=== PATIENT | male | born 1950 | race Caucasian/White ===

== ENCOUNTER 2019-03-29 11:47 | Inpatient (IN) ==
[2019-03-29] MEDS ORDERED: MoRPHine SULFATE 4 MG/ML 1 ML CARP\\VIAL IV STA ×2 (12:52→16:50)
[2019-03-29] MEDS ORDERED: ONDANSETRON INJ 2 MG/ML 2 ML VIAL IV STA ×2 (12:52→16:50)
[2019-03-29 13:19] LABS: Basophils # (auto) 0.01 K/uL (0-0.2); Basophils % (auto) 0.1 %; Eosinophils # (auto) 0.18 K/uL (0-0.5); Eosinophils % (auto) 2.1 %; Hemoglobin 15.4 g/dL (14.0-18.0); Immature Granulocytes # (auto) 0.01 K/uL (0.00-0.02); Immature Granulocytes % (auto) 0.1 %; Lymphocytes % (auto) 22.3 %; Mean Corpuscular Hemoglobin 32.8 pg (25-34); Mean Corpuscular Volume 93.8 fL (80-100); Mean Platelet Volume 9.5 fL (7.4-10.4); Monocytes # (auto) 0.91 K/uL (0.11-0.59); Monocytes % (auto) 10.7 %; Neutrophils % (auto) 64.7 %; Platelet Count 323 K/uL (130-400); RDW Coefficient of Variation 13.4 % (11.5-14.5); RDW Standard Deviation 45.7 fL (36.4-46.3); Red Blood Count 4.69 M/uL (4.7-6.1); White Blood Count 8.51 K/uL (4.8-10.8)
[2019-03-29 13:32] LABS: Partial Thromboplastin Ratio 0.9; Partial Thromboplastin Time 23.9 Seconds (21.0-31.0); Prothrombin Time 10.3 Seconds (9.0-12.0)
[2019-03-29 13:35] LABS: Blood Urea Nitrogen 16 mg/dl (7-18); Calcium 9.2 mg/dl (8.5-10.1); Carbon Dioxide 29 mmol/L (21-32); Chloride 106 mmol/L (98-107); Est GFR (African American) 103.8; Est GFR (Non-African American) 89.6; Glucose 122 mg/dl (70-99); Potassium 4.3 mmol/L (3.5-5.1); Sodium 138 mmol/L (136-145)
[2019-03-29] MEDS ORDERED: OPTIRAY 320 125ml IV PRN (15:18)
--- NOTE | 2019-03-29 16:00 | CT Scan Report ---
CT ANGIOGRAM OF THE LEFT LOWER EXTREMITY CLINICAL HISTORY: Left leg pain. Ischemia. Left foot wound. COMPARISON STUDY: Left lower extremity arterial ultrasound dated 01/16/2019. TECHNIQUE: CT angiogram of the left lower extremity is performed from the pelvis to the foot followin g the IV administration of 120 cc of Optiray 320. Images are reviewed in the axial, sagittal, and cor onal planes. 3-D MIP images are created and assessed. A dose lowering technique was utilized adhering to the principles of ALARA. CT DOSE: 1474.64 mGy.cm FINDINGS: Advanced atherosclerotic disease is noted throughout the arteries of the left lower extremity. There is aneurysmal dilatation of both common iliac arteries. The right common iliac artery measures at andi st 2.2 cm, and the left common iliac artery measures at least 2.2 cm. There is significant mural thro mbus present bilaterally. There is trace flow identified in the right common iliac artery. The left c ommon iliac artery appears occluded. There is thrombosis at the origin of the left internal iliac art lei which is reconstituted approximately 1 cm from the bifurcation. There is near-complete thrombosis of the left external iliac artery with only thready flow. This is largely reconstituted in the commo n femoral artery which shows extensive atheromatous change. The left profunda femoris artery is paten t. There is complete occlusion of the proximal and mid portions of the left superficial femoral arter y which originates at the bifurcation. This is reconstituted in the distal superficial femoral artery approximately 14 cm above the knee as shown on axial image #376. The distal superficial femoral danisha ry and the popliteal artery are patent noting advanced atheromatous change and irregularly. There is one vessel runoff to the foot. The proximal anterior tibial artery is patent. Only thready flow is se en in the midportion. The distal anterior tibial artery is occluded, as is the dorsalis pedis. The pe roneal artery is patent. There is thready flow in the proximal to mid portions of the posterior tibia l artery. This is occluded distally. The skeletal structures are osteopenic. No destructive bony process is identified. The musculature of the left lower extremity is mildly atrophic. No soft tissue lesion or collection is identified. Soft tissue edema is noted in the foot. The reported history of a left lower extremity wound is not well- visualized. The prostate gland is enlarged and heterogeneous. The bladder wall is thickened and trabeculated ellis cating chronic outlet obstruction. There is diverticulosis of the visualized sigmoid colon without CT evidence of acute diverticulitis. IMPRESSION: 1. Advanced atherosclerotic disease with multiple vascular occlusions identified as detailed above. 2. There is one vessel runoff to the foot. 3. 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 4. Additional findings as above. ACT 112: Negative or not required by law. Dictated: 03/29/2019 3:19 PM Transcribed: 03/29/2019 3:55 PM Ilda [id number] [email or web address] Electronically signed by: Jono Blackman M.D. 03/29/2019 3:58 PM
[2019-03-29] MEDS ORDERED: Heparin IV Standard *NO* Bolus ONE (16:26)
[2019-03-29] MEDS ORDERED: HEPARIN SODIUM/DEXTROSE 25,000 UNITS/500 ML BAG IV SCH (16:30)
[2019-03-29] MEDS ORDERED: SODIUM CHLORIDE 0.9% 1000ML 1,000 ML IV SCH ×2 (17:00→20:18)
[2019-03-29] MEDS ORDERED: LORazepam 0.5 MG/1 ML VIAL IV STA (17:15)
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
[2019-03-29] MEDS ORDERED: ACETAMINOPHEN 325 MG TAB PO PRN (20:18)
[2019-03-29] MEDS ORDERED: POLYETHYLENE (MIRALAX) 17 GM PACK PO PRN (20:18)
[2019-03-29] MEDS ORDERED: ALUMINUM/MAGNESIUM SUSP 30 ML UDC PO PRN (20:18)
[2019-03-29] MEDS ORDERED: MAGNESIUM HYDROXIDE SUSP 30 ML UDC PO PRN (20:18)
[2019-03-29] MEDS ORDERED: MoRPHine SULFATE 2 MG/ML CARP IV PRN (20:18)
[2019-03-29] MEDS: GABAPENTIN 100 MG CAP PO SCH (21:45)
[2019-03-29] MEDS: ASPIRIN 81 MG ECTAB PO SCH (21:45)
--- NOTE | 2019-03-29 22:37 | History & Physical Report ---
Date of Service March 29, 2019 Assessment & Plan (1) Ischemic leg: Admit to PCU on telemetry. Vital signs every 4 hours Pain management for the ischemic left lower extremity Consult vascular surgery Plan to have CT angiogram of the abd aorta runoff with contrast tomorrow. He is on heparin drip per recommendation of Dr. Patel DVT prophylaxis as the above Continue gabapentin 100 mg p.o. 3 times daily Full code Present on Admission?: Yes (2) CVA (cerebral infarction): Continue aspirin 81 mg p.o. every morning. Continue metoprolol succinate 12.5 mg p.o. every morning. Continue multivitamins Present on Admission?: Yes (3) HTN (hypertension): As the above Present on Admission?: Yes History of Present Illness Chief Complaint: Worsening left foot pain Primary Care Provider: NO PCP The patient is a 68 years old male with past medical history of Hypertension, CVA, who presents to the emergency room with worsening left foot pain beginning a few months ago. The patient states that he was in the emergency room a month ago for similar symptoms and he was told that had restriction of blood flow to his left lower extremity. He noted that his symptoms started in January. The patient's reports that he was advised to follow-up with vascular surgeon but patient refused to go. The patient mentioned that he was in the emergency room several times after he was referred to a vascular surgeon. Patient states that since then his symptoms are improving but his said that patient symptoms are worsening. Patient states that he is foot was blue when he arrived to the emergency room, but improved when physician came into the room to do conducted examination. The patient noted that there are new black lesions and patient left lower extremity which were concerning to her. Patient takes the gabapentin but it does not help his symptoms. Patient states that he developed some black spots in his foot. The patient is borderline diabetic. Patient denies fever, chills, chest pain, shortness of breath, abdominal pain, frequency, urgency. Patient is smoking for decades approximately 1 pack/day or more. Patient advised to stop smoking and offered nicotine patch. Patient stated that he does not need nicotine patch. EKG reviewed and shows normal sinus rhythm. Labs are reviewed and showed WBCs of 8.51, hemoglobin 15.4, hematocrit 44, platelets 323, PT 10.3, INR 1, APTT 23.9, sodium 138, potassium 4.3, chloride 106, carbon dioxide 29, anion gap 30, BUN 16, creatinine 0.82, GFR 89.6, glucose 122, calcium 9.2. CT angiogram of the left lower extremity shows advanced atherosclerotic disease with multiple vascular occlusions. There is one-vessel runoff to the foot. There is bilateral common iliac artery aneurysm. Venous Doppler did not show DVT within the left lower extremity. Decision was made to admit patient to PCU on telemetry for ischemic left foot due to peripheral vascular disease. Allergies Allergy/AdvReac Type Severity Reaction Status Date / Time No Known Allergies Allergy Unverified 03/29/19 13:15 Home Medications Home Medications Medication Instructions Recorded Confirmed Type multivitamin 1 tab PO QAM #0 tab 04/22/13 03/29/19 History metoprolol succinate 0 mg PO QAM 01/16/19 03/29/19 History gabapentin 100 mg PO TID #30 cap 02/16/19 03/29/19 Rx acetaminophen [Tylenol Extra 500 mg PO Q6H PRN 03/13/19 03/29/19 History Strength] aspirin 81 mg PO QAM 03/13/19 03/29/19 History Past Med/Surg History Medical History Aphasia (Acute 04/22/13) Confused (Acute 04/22/13) Confusion (Acute) CVA (cerebral infarction) (Acute) Delirium (Acute 04/23/13) HTN (hypertension) (Chronic) Surgical History No pertinent past surgical history Family History Other Family history non-contributory Social History Preferred Language: Tajik Beliefs That Will Affect Care: None Current Living Situation: Alone Feels Safe at Home: No Safety Concerns: Afraid for Self Smoking Status: Light tobacco smoker Hx Alcohol Use: No Hx Substance Use: No Review of Systems Review of Systems: All systems reviewed & are unremarkable except as noted in HPI & below Physical Exam Constitutional: WD/WN, vitals as above well developed and + obese Eyes: PERRL, conjunctivae normal, anicteric sclerae ENMT: external ear and nose normal, oropharynx normal Neck: trachea midline, no thyromegaly Respiratory: normal respiratory effort, lungs clear to auscultation Cardiovascular: Heart Sounds: normal S1 and normal S2 Palpation: + palpable S3 Not palpable pulses of the dorsalis pedis left lower extremities. The foot is still warm to touch. There are several areas covered with eschars specifically first big toe. Gastrointestinal (Abdomen): normal bowel sounds, soft, nontender, no hepatosplenomegaly Musculoskeletal: no cyanosis or clubbing, extremities motor strength 5/5 Skin: no rashes, warm and dry Neurologic: patellar DTR's 2+ bilat, sensation intact Psychiatric: Mood: + angry mood Insight: + limited insight Lymphatic: no cervical or axillary lymphadenopathy Results & Data Vital Signs (Past 12 Hours) Vital Signs Temp Pulse Pulse Resp BP BP Pulse Ox 03/29/19 20:18 36.8 C 114 H 22 136/80 97 03/29/19 19:50 36.8 C 114 H 18 136/80 97 03/29/19 19:37 118 H 20 126/75 96 03/29/19 19:00 105 H 20 129/69 97 03/29/19 17:00 104 H 20 98 03/29/19 15:00 103 H 20 118/75 95 03/29/19 13:41 102 H 17 94/69 L 98 03/29/19 11:49 36.7 C 126 H 18 145/77 H 99 Code Status & VTE Plan Code Status Full code VTE Prophylaxis Plan VTE Prophylaxis will be ordered: Yes PG Care Time/CCT Total # of Minutes Spent Total Time Spent with Patient: Total time spent is greater than 50% in coordination of care (as documented) at patient's floor/unit and/or counseling patient: Coding Level of Care Code 96403 Initial Inpt Care Lvl 3 Diagnoses Ischemic leg I99.8 CVA (cerebral infarction) I63.9 HTN (hypertension) I10
[2019-03-29 23:22] LABS: Partial Thromboplastin Ratio 1.2; Partial Thromboplastin Time 33.3 Seconds (21.0-31.0)
[2019-03-29] MEDS ORDERED: HEPARIN IV BOLUS 6,000 UNITS in SYRINGE 0 ML IV ONE (23:30)
[2019-03-29] MEDS: CLINDAMYCIN 600 MG in DEXTROSE 5% 50 ML IV SCH (23:49)
[2019-03-30] MEDS: OXYCODONE/ACETAMINOPHEN 5mg/325mg TAB PO PRN ×3 (03:33→22:38)
[2019-03-30] MEDS ORDERED: LORazepam 0.5 MG TAB PO STA (05:52)
[2019-03-30] MEDS: CLINDAMYCIN 600 MG in DEXTROSE 5% 50 ML IV SCH ×3 (05:58→22:33)
--- NOTE | 2019-03-30 06:35 | Electrocardiogram Report ---
Test Reason : Blood Pressure : / mmHG Vent. Rate : 099 BPM Atrial Rate : 099 BPM P-R Int : 196 ms QRS Dur : 094 ms QT Int : 348 ms P-R-T Axes : 072 -26 056 degrees QTc Int : 446 ms Normal sinus rhythm Low voltage QRS Possible Inferior infarct When compared with ECG of 16-JAN-2019 17:20, No significant change was found Confirmed by Cholo Duarte ([id number]) on 03/30/2019 6:34:57 AM Referred By: REFERRED SELF Confirmed By:Cholo Duarte
[2019-03-30] MEDS: ASPIRIN 81 MG ECTAB PO SCH (08:09)
[2019-03-30] MEDS: MULTIVITAMIN TAB PO SCH (08:09)
[2019-03-30] MEDS: GABAPENTIN 100 MG CAP PO SCH ×3 (08:09→20:25)
[2019-03-30] MEDS: METOPROLOL SUCC 25MG EXT REL TAB PO SCH (08:10)
[2019-03-30] MEDS ORDERED: OPTIRAY 320 125ml IV PRN (09:22)
[2019-03-30] MEDS ORDERED: Heparin IV Standard *NO* Bolus IV ONE (10:34)
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
[2019-03-30] MEDS ORDERED: PERFLUTREN LIPID MICROSPHERE (DEFINITY) IV ONE (11:15)
--- NOTE | 2019-03-30 11:15 | CT Scan Report ---
CT ANGIOGRAM OF THE ABDOMEN AND PELVIS WITH BILATERAL LOWER EXTREMITY RUNOFF CLINICAL HISTORY: Left foot ischemia. COMPARISON STUDY: CT angiogram of the left lower extremity dated 03/29/2019. TECHNIQUE: Following the IV administration of 120 cc of Optiray 320, CT angiogram of the abdomen and pelvis with bilateral lower externally runoff was performed from the lung bases to the feet. Images a re reviewed in the axial, sagittal, and coronal planes. 3-D MIPS images are created and assessed. IV contrast was administered without complication. A dose lowering technique was utilized adhering to t he principles of ALARA. CT DOSE: 1546.39 mGy.cm FINDINGS: Lower chest: The heart is enlarged and without pericardial effusion. There is bibasilar scarring/atel ectasis. No airspace consolidation or large pleural effusion is identified. There is a tiny hiatal he rnia. Liver: The contrast-enhanced liver is normal in size, contour, and attenuation. There is no intrahepa tic or ductal dilatation. The main portal vein is patent. A subcentimeter hypervascular focus in the right lobe of the liver seen on image #44. This likely represents shunt vascularity versus a tiny fla sh filling hemangioma. Gallbladder: Unremarkable. Spleen: Normal in size and attenuation noting heterogeneous arterial phase enhancement. Pancreas: Unremarkable. Adrenal glands: Unremarkable. Kidneys: The contrast enhanced kidneys are normal in size and without hydronephrosis. The kidneys enh ance symmetrically. Abdominal aorta and iliac arteries: There is advanced atherosclerotic plaque and irregularity seen th roughout the abdominal aorta. The abdominal aorta is ectatic. There is mild aneurysmal dilatation of the infrarenal abdominal aorta which measures up to 3.0 cm. The abdominal aorta is patent. Approximat fartun 50% luminal narrowing is seen throughout the mid to distal abdominal aorta. The minimum patent jaciel joe diameter measures up to 11 mm just above the bifurcation. No dissection is seen. There are bila teral aneurysms of the common iliac arteries. The right common iliac artery aneurysm measures up to 2 .2 cm, and the left common iliac artery aneurysm measures up to 2.1 cm. There is near complete occlus ion of the right common iliac artery with only trace flow identified. There is complete thrombosis of the proximal right internal iliac artery. This is reconstituted after approximately 2 cm. The right external iliac artery is patent noting extensive atheromatous irregularity. There is complete thrombo sis of the mid to distal left common iliac artery as well as at the origin of the left internal iliac artery. The left internal iliac artery is reconstituted after approximately 1 cm. There is complete thrombosis of the majority of the left external iliac artery. There is only trace flow reconstituted distally. Major branches of the abdominal aorta: The celiac trunk and superior mesenteric artery are are widely patent. 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 This is reconstituted approximately 3 cm from the abdominal aorta, likely via retrograde flow. Hepatic arterial anatomy is conventional. The splenic artery is patent. There are single bilateral renal arteries. There is aneu rysmal dilatation of the origin of the left renal artery which measures up to 1.2 cm. There is focal dissection within the proximal left renal artery. There is atherosclerotic irregularity with no high- grade stenosis identified in either renal artery. Right lower extremity runoff: Advanced atherosclerotic plaque and irregularity seen throughout the ar teries of the right lower extremity. The common femoral artery and the profunda femoris artery are pa tent. There is complete thrombosis of the right superficial femoral artery and the proximal popliteal artery. This is reconstituted posterior to the distal femur on image #[id number]. The mid to distal poplite al artery and the tibioperoneal trunk are patent. There is one-vessel runoff to the foot. The proxima l and mid portions of the anterior tibial artery are patent. This is occluded distally just above the ankle joint as seen on image #[id number]. The dorsalis pedis artery is occluded. There is thready flow wit hin the proximal and mid portions of the posterior tibial artery. This is occluded distally. The jake tan artery is patent. Left lower extremity runoff: Advanced atherosclerotic plaque and irregularity seen throughout the art eries of the left lower extremity. The common femoral artery and the profunda femoris artery are barron nt. There is complete occlusion of the proximal and mid portions of the left superficial femoral danisha ry which originates at the bifurcation. This is reconstituted in the distal superficial femoral arter y approximately 14 cm above the knee. The distal superficial femoral artery and the popliteal artery are patent noting advanced atheromatous change and irregularly. Focal high-grade stenosis is seen wit hin the distal superficial femoral artery on image #685. There is one vessel runoff to the foot. The proximal anterior tibial artery is patent. Only thready flow is seen in the midportion. The distal an terior tibial artery is occluded, as is the dorsalis pedis. The peroneal artery is patent. There is t hready flow in the proximal to mid portions of the posterior tibial artery. This is occluded distally . Bowel: There is no bowel obstruction. There is colonic diverticulosis without CT evidence of acute di verticulitis. Moderate fecal retention is seen throughout the colon. There is a large duodenal divert iculum. The appendix is well-visualized and normal. Peritoneum: There is no intraperitoneal free air or abdominal ascites. Lymphadenopathy: None. Pelvic viscera: The prostate gland is enlarged and heterogeneous. The bladder is distended and filled with excreted IV contrast. Skeletal structures: The skeletal structures are osteopenic. Moderate lumbosacral spondylosis is obse rved. Large posterior disc osteophyte complexes at L4-L5 and L5-S1 likely contribute to central canal stenosis. No lytic or blastic lesions are seen. Lower extremity soft tissues: There is mild atrophy of the lower extremity musculature. Mild soft tis april edema is present in both feet, left greater than right. Question dorsal heel ulceration on the le ft. There is no evidence of organized fluid collection. IMPRESSION: 1. Advanced atherosclerotic disease is identified in the abdominal aorta, iliac arteries, and lower e xtremity arteries. 2. There is one-vessel runoff to the foot bilaterally with numerous foci of vascular occlusion in the iliac arteries and both lower extremity arteries. See above for detailed findings. 3. There are bilateral common iliac artery aneurysms which measure up to 2.2 cm. 4. There is diffuse ectasia of the abdominal aorta. A small infrarenal abdominal aortic aneurysm brittaney ures up to 3.0 cm. 5. 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 The renal arteries are patent. 6. 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 7. 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 8. Cardiomegaly. 9. Moderate colonic diverticulosis without CT evidence of acute diverticulitis. 9. Bladder distention. 10. Additional findings as above. ACT 112: Negative or not required by law. Electronically signed by: Jono Blackman M.D. 03/30/2019 11:14 AM
[2019-03-30] MEDS: HEPARIN SODIUM/DEXTROSE 25,000 UNITS/500 ML BAG IV SCH (12:08)
[2019-03-30] MEDS: ATORVASTATIN 40 MG TAB PO SCH (12:15)
[2019-03-30 12:19] LABS: Basophils # (auto) 0.02 K/uL (0-0.2); Basophils % (auto) 0.2 %; Eosinophils % (auto) 2.5 %; Hematocrit (blood only) 42.8 % (42-52); Hemoglobin 14.7 g/dL (14.0-18.0); Immature Granulocytes # (auto) 0.01 K/uL (0.00-0.02); Immature Granulocytes % (auto) 0.1 %; Lymphocytes # (auto) 1.96 K/uL (1.2-3.4); Lymphocytes % (auto) 24.3 %; Mean Corpuscular Hemoglobin 32.4 pg (25-34); Mean Corpuscular Hgb Conc 34.3 g/dL (32-36); Mean Corpuscular Volume 94.3 fL (80-100); Mean Platelet Volume 9.6 fL (7.4-10.4); Monocytes # (auto) 0.76 K/uL (0.11-0.59); Monocytes % (auto) 9.4 %; Neutrophils # (auto) 5.13 K/uL (1.4-6.5); Neutrophils % (auto) 63.5 %; Platelet Count 257 K/uL (130-400); RDW Coefficient of Variation 13.3 % (11.5-14.5); RDW Standard Deviation 45.8 fL (36.4-46.3); Red Blood Count 4.54 M/uL (4.7-6.1); White Blood Count 8.08 K/uL (4.8-10.8)
[2019-03-30 12:29] LABS: Estimated Average Glucose 143 mg/dl; Hemoglobin A1C 6.6 % (4.5-5.6); Partial Thromboplastin Ratio 0.9; Partial Thromboplastin Time 25.2 Seconds (21.0-31.0); Prothrombin Time 10.4 Seconds (9.0-12.0)
[2019-03-30 12:35] LABS: BUN Creatinine Ratio 15.5 (10-20); Creatinine Clr Calc Pharmacy 74.7 ml/min; Est GFR (African American) 100.4; Est GFR (Non-African American) 86.6; Potassium 4.2 mmol/L (3.5-5.1)
--- NOTE | 2019-03-30 15:12 | Communication Note ---
Date of Service: March 30, 2019 68-year-old male admitted medically on 03/29/2019 for worsening left foot pain. Psychiatric consultation was requested; however, patient remains unable to participate in productive interview at this time. We will attempt to clarify goals of psychiatric involvement while awaiting improvement in level of sedation. Our service will continue to round on patient and will plan to reassess when he is more appropriate for evaluation. Please reach out to our service with any additional concerns or updates.
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
[2019-03-30] MEDS ORDERED: LORazepam 0.5 MG/1 ML VIAL IV PRN (17:15)
--- NOTE | 2019-03-30 17:32 | Billing Data ---
Date of Service March 30, 2019 Coding Level of Care Code 69816 Subseq Hosp Care Lvl 3
[2019-03-30 18:40] LABS: Partial Thromboplastin Ratio 1.4; Partial Thromboplastin Time 37.6 Seconds (21.0-31.0)
[2019-03-30] MEDS ORDERED: HEPARIN IV BOLUS 6,000 UNITS in SYRINGE 0 ML IV ONE (19:15)
[2019-03-31 01:13] LABS: Partial Thromboplastin Ratio 3.3
[2019-03-31 01:20] LABS: Partial Thromboplastin Time 88.3 Seconds (21.0-31.0)
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
[2019-03-31] MEDS: HEPARIN SODIUM/DEXTROSE 25,000 UNITS/500 ML BAG IV SCH ×2 (04:28→22:14)
[2019-03-31 07:48] LABS: Basophils # (auto) 0.02 K/uL (0-0.2); Basophils % (auto) 0.3 %; Eosinophils # (auto) 0.19 K/uL (0-0.5); Eosinophils % (auto) 2.6 %; Hematocrit (blood only) 41.5 % (42-52); Hemoglobin 14.3 g/dL (14.0-18.0); Immature Granulocytes # (auto) 0.02 K/uL (0.00-0.02); Immature Granulocytes % (auto) 0.3 %; Lymphocytes # (auto) 1.92 K/uL (1.2-3.4); Lymphocytes % (auto) 25.9 %; Mean Corpuscular Hemoglobin 32.4 pg (25-34); Mean Corpuscular Hgb Conc 34.5 g/dL (32-36); Mean Corpuscular Volume 93.9 fL (80-100); Mean Platelet Volume 9.4 fL (7.4-10.4); Monocytes # (auto) 0.69 K/uL (0.11-0.59); Monocytes % (auto) 9.3 %; Neutrophils # (auto) 4.56 K/uL (1.4-6.5); Neutrophils % (auto) 61.6 %; Platelet Count 261 K/uL (130-400); RDW Coefficient of Variation 13.1 % (11.5-14.5); RDW Standard Deviation 45.2 fL (36.4-46.3); Red Blood Count 4.42 M/uL (4.7-6.1)
[2019-03-31] MEDS: CLINDAMYCIN 600 MG in DEXTROSE 5% 50 ML IV SCH ×3 (08:07→22:16)
[2019-03-31] MEDS: NICOTINE 14 MG/24 HR PATCH TD SCH (08:09)
[2019-03-31 08:10] LABS: INR 1.1 (0.9-1.1); Partial Thromboplastin Ratio 2.1; Prothrombin Time 10.8 Seconds (9.0-12.0)
[2019-03-31] MEDS: MULTIVITAMIN TAB PO SCH (08:10)
[2019-03-31] MEDS: ATORVASTATIN 40 MG TAB PO SCH (08:10)
[2019-03-31] MEDS: ASPIRIN 81 MG ECTAB PO SCH (08:10)
[2019-03-31] MEDS: METOPROLOL SUCC 25MG EXT REL TAB PO SCH (08:11)
[2019-03-31] MEDS: GABAPENTIN 100 MG CAP PO SCH ×3 (08:11→20:00)
[2019-03-31 08:15] LABS: Partial Thromboplastin Time 56.7 Seconds (21.0-31.0)
[2019-03-31 08:30] LABS: BUN Creatinine Ratio 14.5 (10-20); Calcium 9.1 mg/dl (8.5-10.1); Creatinine Clr Calc Pharmacy 73.9 ml/min; Est GFR (African American) 99.9; Est GFR (Non-African American) 86.2; Potassium 3.8 mmol/L (3.5-5.1)
--- NOTE | 2019-03-31 09:30 | Anesthesiology Consultation ---
Date of Service March 31, 2019 Assessment & Plan (1) Encounter for pre-operative examination: Chart Review Chart Review: Pending: Refer to Additional Notes / Consult section The patient appears to be acceptable for surgery however he is currently refusing to sign anesthesia consent as he is still not sure if he wants to proceed with surgery. Dr. Patel is aware and will speak to the patient again. The patient is alert and oriented to time and place and understands that surgery is necessary to prevent future amputation of his foot. He however is scared and sometimes appears confused. I did speak to the psychiatric liaison who states that the patient has been deemed appropriate to sign his own consents. Dr. Patel will be placing blood bank orders. History Surgery Operation Date: 04/01/19 12:10 Proposed Procedures p Aortobifemoral Bypass - Rickie Patel MD Height/Weight Height: 5 ft 8 in Weight: 79.2 kg Allergies Allergy/AdvReac Type Severity Reaction Status Date / Time No Known Allergies Allergy Unverified 03/29/19 13:15 Medications Home Medications Medication Instructions Recorded Confirmed Last Taken multivitamin 1 tab PO QAM #0 tab 04/22/13 03/29/19 03/29/19 metoprolol succinate 0 mg PO QAM 01/16/19 03/29/19 03/29/19 gabapentin 100 mg PO TID #30 cap 02/16/19 03/29/19 03/29/19 acetaminophen [Tylenol Extra 500 mg PO Q6H PRN 03/13/19 03/29/19 03/12/19 17:00 Strength] 1000 mg aspirin 81 mg PO QAM 03/13/19 03/29/19 03/29/19 Active Medications Generic Name Dose Route Start Last Admin Trade Name Freq PRN Reason Stop Dose Admin Aspirin 81 mg 03/29/19 20:18 03/31/19 08:10 Ecotrin Ectab PO 04/28/19 20:17 81 mg QAM SCOTT Administration Atorvastatin Calcium 40 mg 03/30/19 10:45 03/31/19 08:10 Lipitor PO 04/29/19 10:44 40 mg QAM SCOTT Administration Gabapentin 100 mg 03/29/19 21:00 03/31/19 08:11 Neurontin PO 04/28/19 20:59 100 mg TID SCOTT Administration Clindamycin Phosphate 600 mg/ 54 mls @ 100 mls/hr 03/29/19 23:00 03/31/19 08:40 Dextrose IV 04/08/19 22:59 Infused Q8H SCOTT Infusion Heparin Sodium/Dextrose 25,000 units in 500 mls @ 29 mls/hr 03/30/19 10:45 03/31/19 08:25 Heparin Sodium/Dextrose IV 04/29/19 10:44 1,450 units/hr .[id number] SCOTT 29 mls/hr Titration Protocol 1,450 UNITS/HR Ioversol 120 ml 03/30/19 09:22 03/30/19 09:22 Optiray 320 125ml IV 04/03/19 09:21 120 ml ONCE PRN Administration Interaction Checking Metoprolol Succinate 12.5 mg 03/30/19 09:00 03/31/19 08:11 Toprol Xl PO 04/29/19 08:59 12.5 mg QAM SCOTT Administration Miscellaneous 1 ea 03/31/19 08:59 03/31/19 08:10 Remove Nicoderm Patch N/A 04/30/19 08:58 1 ea [id number] SCOTT Administration Morphine Sulfate 2 mg 03/29/19 20:18 03/30/19 02:12 Morphine Sulfate IV 04/12/19 20:17 2 mg Q2H PRN Administration Chest Pain Multivitamins 1 tab 03/30/19 09:00 03/31/19 08:10 Multivitamin Tab PO 04/29/19 08:59 1 tab QAM SCOTT Administration Nicotine 14 mg 03/31/19 09:00 03/31/19 08:09 Nicoderm Cq TD 04/30/19 08:59 14 mg QAM SCOTT Administration Oxycodone/Acetaminophen 2 tab 03/30/19 03:13 03/30/19 22:38 Percocet 5mg/325mg PO 04/13/19 03:12 2 tab Q4H PRN Administration Pain Past Medical History Medical History Aphasia (Acute 04/22/13) Confused (Acute 04/22/13) Confusion (Acute) CVA (cerebral infarction) (Acute) Delirium (Acute 04/23/13) HTN (hypertension) (Chronic) Past Family History Family History Other Family history non-contributory Past Surgical History Surgical History No pertinent past surgical history Social History Smoking Status: Light tobacco smoker Hx Alcohol Use: No Hx Substance Use: No Physical Exam Vital Signs Last Vital Signs Temp 36.7 C 03/31/19 08:00 Pulse 101 H 03/31/19 08:00 Resp 22 03/31/19 08:00 BP 138/75 03/31/19 08:00 Pulse Ox 95 03/31/19 08:00 ENMT Mouth: + poor dentition and + chipped teeth Thyromental Distance: > or= 3.5 Finger Breadths Mallampati Class: III Mouth / Teeth: 1. Missing Neck + limited neck extension (Slightly) Respiratory Auscultation: lungs clear to auscultation bilaterally Cardiovascular Rate/Rhythm: regular rate and regular rhythm Testing Laboratory Results 03/31/19 07:31 03/31/19 07:31 PT 10.8 Seconds (9.0-12.0) 03/31/19 07:31 INR 1.1 (0.9-1.1) 03/31/19 07:31 APTT 56.7 Seconds (21.0-31.0) H* 03/31/19 07:31 Hemoglobin A1c 6.6 % (4.5-5.6) H 03/30/19 11:44 Electrocardiogram Date: 03/29/19 Normal sinus rhythm Low voltage QRS Possible Inferior infarct When compared with ECG of 16-JAN-2019 17:20, No significant change was found Confirmed by Cholo Duarte ([id number]) on 03/30/2019 6:34:57 AM Chest X-Ray Date: 01/16/19 PRESSION: 1. Mild cardiomegaly. No other convincing evidence of acute cardiopulmonary disease. Echocardiogram Date: 03/29/19 EF: 50-55% LV Function: normal LV systolic fxn normal Regional wall motion abnormalities cannot be excluded AVS mild ,no stenosis borderline mild LVH
--- NOTE | 2019-03-31 09:46 | Psychiatric Consultation ---
Date of Consultation March 31, 2019 Impression / Recommendations Impression Dr. Desiree Quinones was directly involved in review and discussion of the patient's case and participated in medical decision making regarding treatment recommendations. RECOMMENDATIONS: 03/31 - Gather collateral information from outpatient supports to better assess the timeline of these delusional beliefs - Pt has several risk factors for delirium: advanced age, prior CVA, and mu ltiple complicating medical issues. History of these beliefs will allow us to better determine if the thoughts are related to a psychiatric disorder or better explained by possible delirium. Upcoming surgery may further complicate this during the acute recovery phase. - As patient is not actively agitated and history regarding delusions is limited, would not suggest prophylactically starting antipsychotic medications. - Will plan to reassess patient prior to discharge consideration to evaluate any changes in these beliefs or safety concerns at that time - Pt is not clearly demonstrating an acute risk of harm to others; but recommend monitoring of these statements. Psych History Identifying Data 68-year-old male admitted medically on 03/29/2019 after presenting to the ED with worsening left foot pain. Pt is being treated medically for ischemic changes to his left leg and present plan is for vascular surgery on 04/01/2019. Psychiatric consultation was requested due to patient reporting thoughts to harm specific individuals and verbalizing belief they are using Taoism against him. Chief Complaint "I'm not too good I have an operation tomorrow, and I'm in pain every day until then." History of Present Illness Yasmany James is a 68-year-old male admitted medically on 03/29/2019 after presenting to the ED with complaints of worsening left foot pain. Ischemic changes to his left leg were noted, and patient has received a vascular surgery consultation. Present plan is for operative procedure on 04/01/2019 to target these changes. Psychiatric consultation was reportedly requested as patient has been verbalizing thoughts to harm specific individuals living at his apartment complex, verbalizing the belief they are using episcopal against him. Patient was too sedated yesterday to gather meaningful history, and is reassessed today for psychiatric evaluation. Patient is cooperative with conversation, but admits he is "not too good." Patient states that he continues to have significant left foot pain, but informs this provider he is scheduled for an operation tomorrow. Patient states he is prepared for this operation, and is hopeful that it is beneficial for him. It is not long in our conversation before patient begins to talk about how "[employer] screwed me, the maintenance guys I mean. They did all this to me." Patient goes on to verbalize a belief that the maintenance men at his apartment complex (some of whom actually lived in [place]) have been practicing episcopal and directly inflicted the issues he is experiencing with his left foot. Patient states "believe it or not, what is going on has something to do with episcopal." He states, "at first I thought they should watch their backs, but now I plan to april them for many, many millions of dollars." This provider gently attempted to challenge his thoughts, asking if there was any other explanation for the changes he is experiencing in his physical presentation. Patient responds by stating "I am positive that they are doing this to me." Patient states that he has been to the four roll calender operator "at least 4 times", and that they have not been able to offer him a solution to his current concerns. Patient believes that the television maintenance worker are attempting to get him to move out of his apartment. He states that this episcopal magic has been occurring for at least 4 to 5 months, and that they are able to target him from anywhere. He states he is yet to experience the episcopal here in the hospital, but would not be surprised if this were to happen. Patient was specifically asked about homicidal ideation towards these individuals, to which he states "I would not say I did not think about it, but was good does not do me. I would just end up in correction." Patient states that he has 2 specific supports also living at the apartment complex who could corroborate his story. Patient denies history of psychiatric diagnoses. He denies history of inpatient psychiatric hospitalizations or previous suicide or homicide attempts. He denies significant changes in his mood or level of anxiety over the past several months. He does admit that his sleep and appetite have been affected and are "not good at all." The patient states that he has become preoccupied with the episcopal the television maintenance worker are performing, that he feels as though he cannot eat or sleep. Patient was unable to quantify his usual sleep schedule. He is agreeable, should it be indicated, with medication to keep him comfortable during his hospitalization. Other than this, patient denies specific needs or concerns from our service at this time. Past Psychiatric History Previous Psych History: Patient denies previous psychiatric history. He was seen on psychiatric consult service in 2013 shortly after his CVA. Patient was initiated on lorazepam and quetiapine, as we were asked to provide medication recommendations for agitation. Allergies Allergy/AdvReac Type Severity Reaction Status Date / Time No Known Allergies Allergy Unverified 03/29/19 13:15 Home Medications Home Medications Medication Instructions Recorded Confirmed Type multivitamin 1 tab PO QAM #0 tab 04/22/13 03/29/19 History metoprolol succinate 0 mg PO QAM 01/16/19 03/29/19 History gabapentin 100 mg PO TID #30 cap 02/16/19 03/29/19 Rx acetaminophen [Tylenol Extra 500 mg PO Q6H PRN 03/13/19 03/29/19 History Strength] aspirin 81 mg PO QAM 03/13/19 03/29/19 History Family History Denies Substance Abuse History Denies Personal History Living Arrangements: Apartment ([facility]) Highest Grade Completed: High School Graduate Employment Status: Retired Marital Status: Single (Never ) Number Of Children: Denies Beliefs That Will Affect Care: None History of Legal Problems: Denies Psychological Trauma History Comment: Denies Patient History Medical History Aphasia (Acute 04/22/13) Confused (Acute 04/22/13) Confusion (Acute) CVA (cerebral infarction) (Acute) Delirium (Acute 04/23/13) HTN (hypertension) (Chronic) Surgical History No pertinent past surgical history Family History Other Family history non-contributory Social History Preferred Language: Serbian Communication Ability: Effective Beliefs That Will Affect Care: None marital status: Single Current Living Situation: Alone Feels Safe at Home: No Safety Concerns: Afraid for Self Smoking Status: Light tobacco smoker Hx Alcohol Use: No Hx Substance Use: No Physical Exam Psychiatric: Orientation: alert and cooperative Apperance: appropriately dressed and + disheveled; + inappropriately groomed male, observed to be sitting upright on edge of bed, eating lunch. Appropriately dressed for setting in hospital gown. Appearing disheveled with limited grooming, edentulous. Eye Contact: good eye contact Motor Behavior: no abnormal motor movements Speech: + loud speech and normal rate/rhythm/volume of speech; no pressured speech Affect: + irritable affect (pleasant in conversation, but demonstrates frustration about situation) Mood: + irritable mood ("I don't even get why they're doing it, it's making me frustrated") Thought Process: goal directed thought process and + perseveration illogical beliefs that people are using episcopal against him, can not consider another possible explanation for his foot issues Thought Content: + preoccupation, + paranoid and + delusions (believing individuals are using episcopal to inflict harm/pain) Suicidal Thoughts: denies suicidal thoughts Homicidal Thoughts: denies homicidal thoughts (but does want to "april them for many, many millions of dollars") Hallucinations: no auditory hallucinations and no visual hallucinations Admits he cannot see or hear these individuals, that they are using episcopal to complete these acts Cognition: language grossly intact Insight: + impaired insight Judgement: + impaired judgement Vital Signs (Past 24 Hours): Last Vital Signs Temp 36.7 C 03/31/19 08:00 Pulse 101 H 03/31/19 08:00 Resp 22 03/31/19 08:00 BP 138/75 03/31/19 08:00 Pulse Ox 95 03/31/19 08:00 Review of Systems Constitutional: denied Cardiovascular: denied Respiratory: denied Gastrointestinal: denied Neurological: denied Musculoskeletal: reporting significant left foot pain Psychiatric: denies symptoms other than stated above Total of at least 10 systems reviewed, pertinent positives as above and in HPI. Results & Data Medications Administered Aspirin (Ecotrin Ectab) 81 mg PO [facility] Stop: 04/28/19 20:17 Last Admin: 03/31/19 08:10 Dose: 81 mg Documented by: [id number] Admin: 03/30/19 08:09 Dose: 81 mg Documented by: [id number] Admin: 03/29/19 21:45 Dose: 81 mg Documented by: [id number] Atorvastatin Calcium (Lipitor) 40 mg PO [facility] Stop: 04/29/19 10:44 Last Admin: 03/31/19 08:10 Dose: 40 mg Documented by: [id number] Admin: 03/30/19 12:15 Dose: 40 mg Documented by: [id number] Gabapentin (Neurontin) 100 mg PO TID [facility] Stop: 04/28/19 20:59 Last Admin: 03/31/19 08:11 Dose: 100 mg Documented by: [id number] Admin: 03/30/19 20:25 Dose: 100 mg Documented by: [id number] Admin: 03/30/19 13:38 Dose: 100 mg Documented by: [id number] Admin: 03/30/19 08:09 Dose: 100 mg Documented by: [id number] Admin: 03/29/19 21:45 Dose: 100 mg Documented by: [id number] Clindamycin Phosphate 600 mg/ (Dextrose) 54 mls @ 100 mls/hr IV Q8H [facility] Stop: 04/08/19 22:59 Last Admin: 03/31/19 08:07 Dose: 100 mls/hr Documented by: [id number] Infusion: 03/30/19 23:09 Dose: 0 mls/hr Documented by: [id number] Admin: 03/30/19 22:33 Dose: 100 mls/hr Documented by: [id number] Infusion: 03/30/19 15:30 Dose: 0 mls/hr Documented by: [id number] Admin: 03/30/19 14:22 Dose: 100 mls/hr Documented by: [id number] Infusion: 03/30/19 09:41 Dose: 0 mls/hr Documented by: [id number] Infusion: 03/30/19 06:29 Dose: 0 mls/hr Documented by: [id number] Admin: 03/30/19 05:58 Dose: 100 mls/hr Documented by: [id number] Infusion: 03/30/19 00:22 Dose: 0 mls/hr Documented by: [id number] Admin: 03/29/19 23:49 Dose: 100 mls/hr Documented by: [id number] Heparin Sodium/Dextrose (Heparin Sodium/Dextrose) 25,000 units in 500 mls @ 29 mls/hr IV .[id number] [facility]; Protocol Stop: 04/29/19 10:44 Last Titration: 03/31/19 08:25 Dose: 1,450 units/hr, 29 mls/hr Documented by: [id number] Cosigned by: [id number] Titration: 03/31/19 07:08 Dose: 1,450 units/hr, 29 mls/hr Documented by: [id number] Cosigned by: [id number] Admin: 03/31/19 04:28 Dose: 1,450 units/hr, 29 mls/hr Documented by: [id number] Cosigned by: [id number] Titration: 03/31/19 04:28 Dose: 1,450 units/hr, 29 mls/hr Documented by: [id number] Cosigned by: [id number] Titration: 03/31/19 01:52 Dose: 1,450 units/hr, 29 mls/hr Documented by: [id number] Cosigned by: [id number] Titration: 03/31/19 01:21 Dose: 0 units/hr, 0 mls/hr Documented by: [id number] Cosigned by: [id number] Titration: 03/30/19 19:19 Dose: 1,600 units/hr, 32 mls/hr Documented by: [id number] Cosigned by: [id number] Titration: 03/30/19 18:46 Dose: 1,600 units/hr, 32 mls/hr Documented by: [id number] Cosigned by: [id number] Admin: 03/30/19 12:08 Dose: 1,300 units/hr, 26 mls/hr Documented by: [id number] Cosigned by: [id number] Ioversol (Optiray 320 125ml) 120 ml IV ONCE PRN PRN Reason: Interaction Checking Stop: 04/03/19 09:21 Last Admin: 03/30/19 09:22 Dose: 120 ml Documented by: [id number] Metoprolol Succinate (Toprol Xl) 12.5 mg PO QAM [facility] Stop: 04/29/19 08:59 Last Admin: 03/31/19 08:11 Dose: 12.5 mg Documented by: [id number] Admin: 03/30/19 08:10 Dose: 12.5 mg Documented by: [id number] Miscellaneous (Remove Nicoderm Patch) 1 ea N/A [id number] [facility] Stop: 04/30/19 08:58 Last Admin: 03/31/19 08:10 Dose: 1 ea Documented by: [id number] Morphine Sulfate (Morphine Sulfate) 2 mg IV Q2H PRN PRN Reason: Chest Pain Stop: 04/12/19 20:17 Last Admin: 03/30/19 02:12 Dose: 2 mg Documented by: [id number] Multivitamins (Multivitamin Tab) 1 tab PO QAM SCOTT Stop: 04/29/19 08:59 Last Admin: 03/31/19 08:10 Dose: 1 tab Documented by: [id number] Admin: 03/30/19 08:09 Dose: 1 tab Documented by: [id number] Nicotine (Nicoderm Cq) 14 mg TD QAM SCOTT Stop: 04/30/19 08:59 Last Admin: 03/31/19 08:09 Dose: 14 mg Documented by: [id number] Oxycodone/Acetaminophen (Percocet 5mg/325mg) 2 tab PO Q4H PRN PRN Reason: Pain Stop: 04/13/19 03:12 Last Admin: 03/30/19 22:38 Dose: 2 tab Documented by: [id number] Admin: 03/30/19 11:19 Dose: 2 tab Documented by: [id number] Admin: 03/30/19 03:33 Dose: 2 tab Documented by: [id number] Coding Level of Care Code 98373 [facility] Intl Hosp Care Lvl 3
[2019-03-31] MEDS ORDERED: SODIUM CHLORIDE 0.9% 250 ML IV PRN (10:26)
--- NOTE | 2019-03-31 10:31 | Surgery Progress Note ---
Date of Service March 31, 2019 Assessment & Plan (1) Ischemia of left lower extremity: Patient is agreeable to undergo an endovascular repair of his aortic aneurysm and iliac aneurysms along with a femorofemoral bypass. I have discussed the risks options and benefits of the procedure with the patient. The patient understands the risks options and benefits and agrees to the procedure. This will be done tomorrow around noon. Subjective Patient still complaining of pain in his left foot however it is slightly improved since admission. He is taking narcotics for it. Physical Exam Constitutional: well developed and well nourished; no acute distress Respiratory: no respiratory distress Cardiovascular: Vessels: + femoral pulses abnormal, + posterior tibial pulses abnormal and + dorsalis pedis pulses abnormal Gastrointestinal (Abdomen): Inspection/Auscultation: abdomen normal to inspection Percussion/Palpation: abdomen nontender Musculoskeletal: Extremities: extremities normal to inspection Skin: no rashes, warm and dry Psychiatric: Orientation: alert and oriented x 3 Results & Data Vital Signs (Past 12 Hours) Vital Signs Temp Pulse Pulse Resp BP BP Pulse Ox 03/31/19 08:00 36.7 C 101 H 22 138/75 95 03/31/19 04:17 36.7 C 98 H 22 137/76 93 03/31/19 00:02 100 H 03/30/19 23:11 37.0 C 94 H 18 148/68 H 93
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
[2019-03-31] MEDS: OXYCODONE/ACETAMINOPHEN 5mg/325mg TAB PO PRN (15:05)
--- NOTE | 2019-03-31 17:10 | Billing Data ---
Date of Service March 31, 2019 Coding Level of Care Code 75794 Subseq Hosp Care Lvl 3
[2019-03-31] MEDS ORDERED: HALOPERIDOL LACTATE 5 MG/ML 1 ML VIAL ONE (23:55)
[2019-04-01] MEDS: HALOPERIDOL LACTATE 5 MG/ML 1 ML VIAL IM PRN ×2 (00:02→00:18)
[2019-04-01] MEDS ORDERED: CEFAZOLIN 1000MG 1,000 MG/7.5 ML SYR IV SCH (06:00)
[2019-04-01] MEDS ORDERED: LACTATED RINGER'S 1,000 ML IV SCH (08:00)
[2019-04-01] MEDS: ASPIRIN 81 MG ECTAB PO SCH (08:37)
[2019-04-01] MEDS: MULTIVITAMIN TAB PO SCH (08:38)
[2019-04-01] MEDS: OXYCODONE/ACETAMINOPHEN 5mg/325mg TAB PO PRN (08:38)
[2019-04-01] MEDS: GABAPENTIN 100 MG CAP PO SCH ×3 (08:38→20:27)
[2019-04-01] MEDS: NICOTINE 14 MG/24 HR PATCH TD SCH (08:38)
[2019-04-01] MEDS: ATORVASTATIN 40 MG TAB PO SCH (08:38)
[2019-04-01] MEDS: METOPROLOL SUCC 25MG EXT REL TAB PO SCH (08:38)
[2019-04-01 09:01] LABS: Basophils # (auto) 0.01 K/uL (0-0.2); Basophils % (auto) 0.1 %; Eosinophils # (auto) 0.15 K/uL (0-0.5); Hematocrit (blood only) 42.7 % (42-52); Hemoglobin 15.1 g/dL (14.0-18.0); Immature Granulocytes # (auto) 0.03 K/uL (0.00-0.02); Immature Granulocytes % (auto) 0.4 %; Lymphocytes # (auto) 1.39 K/uL (1.2-3.4); Lymphocytes % (auto) 18.2 %; Mean Corpuscular Hgb Conc 35.4 g/dL (32-36); Mean Corpuscular Volume 93.2 fL (80-100); Mean Platelet Volume 9.7 fL (7.4-10.4); Monocytes # (auto) 0.93 K/uL (0.11-0.59); Monocytes % (auto) 12.2 %; Neutrophils # (auto) 5.11 K/uL (1.4-6.5); Neutrophils % (auto) 67.1 %; Platelet Count 265 K/uL (130-400); RDW Coefficient of Variation 13.2 % (11.5-14.5); RDW Standard Deviation 44.7 fL (36.4-46.3); Red Blood Count 4.58 M/uL (4.7-6.1); White Blood Count 7.62 K/uL (4.8-10.8)
[2019-04-01 09:11] LABS: INR 1.1 (0.9-1.1); Partial Thromboplastin Ratio 0.9; Partial Thromboplastin Time 24.4 Seconds (21.0-31.0); Prothrombin Time 10.9 Seconds (9.0-12.0)
[2019-04-01] MEDS: CLINDAMYCIN 600 MG in DEXTROSE 5% 50 ML IV SCH ×3 (09:27→23:26)
[2019-04-01] MEDS ORDERED: LORazepam 0.5 MG TAB PO ONE (09:30)
[2019-04-01] MEDS ORDERED: fentaNYL citrate 100 MCG/2 ML VIAL ONE ×3 (11:20→14:06)
--- NOTE | 2019-04-01 11:38 | Hospitalist Progress Note ---
Date of Service April 01, 2019 Assessment & Plan (1) Ischemia of left lower extremity: 68 y/o M w/ PVD, HTN, CVA, presented w/ ischemic left lower extremity - longstanding, serve peripheral vascular disease - Aorta runoff CTA 03/30 showing bilateral common iliac artery aneurysms which measure up to 2.2 cm, as well as a small aortic aneurysm. The aneurysm to the left leg is totally occluded. The aneurysm to the right leg has a small channel with minimal flow. - vascular surgery consulted with plan to do a endovascular repair of his aortic aneurysm and iliac aneurysms along with a femorofemoral bypass on 04/01/19 - currently on heparin drip; patient has at times refused blood draws necessary for monitoring of heparin protocol due to his needle phobia - given finding of crepitus on exam, we will continue clindamycin for impending cellulitis/necrosis - started atorvastatin 40mg, daily for plaque stabilization - continue ASA 81mg daily (2) Delusion: - overnight patient pulled IV and was given Haldol, this morning was agitated, but deescalated after talking with him and he is amenable to treatment plan and had the IV replaced without any complications. 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 Appropriately anxious/concerned, but calm, alert, and oriented. I agree with the impression and plan as noted above. Subjective When I saw him this morning he was in his street clothes and stated that he wanted to have the procedure done tomorrow. After addressing his fear of pain with the procedure and explaining that the procedure would be required to help improve blood flow to his leg he was willing to have the procedure. I did discuss that there were risks with the procedure but that there were risks with not getting the procedure as well. Review of Systems Constitutional: no fever and no chills Respiratory: no cough denies shortness of breath Cardiovascular: no chest pain and no edema Gastrointestinal: no nausea and no vomiting Genitourinary: no dysuria and no urinary frequency Physical Exam Constitutional: WD/WN, vitals as above Eyes: PERRL, conjunctivae normal, anicteric sclerae ENMT: external ear and nose normal, oropharynx normal Neck: trachea midline, no thyromegaly Respiratory: normal respiratory effort, lungs clear to auscultation Cardiovascular: RRR, no murmur, no edema Gastrointestinal (Abdomen): normal bowel sounds, soft, nontender, no he patosplenomegaly Psychiatric: Affect: + anxious affect alert and oriented Results & Data Vital Signs (Past 12 Hours) Vital Signs Temp Pulse Pulse Resp BP Pulse Ox 04/01/19 09:07 36.4 C L 99 H 19 156/88 H 93 04/01/19 07:26 105 H 04/01/19 04:00 36.6 C 109 H 20 156/76 H 94 Resident Activity Tracking Resident Involvement: Resident Care Provided Care Provided: Adult Hospital Medicine
--- NOTE | 2019-04-01 11:52 | History & Physical Bridge Note ---
Date of Service April 01, 2019 History & Physical Bridge Note I have examined the patient, reviewed the History & Physical and in the interval since the performance of the History & Physical I have noted the following changes of clinical significance: no changes noted
[2019-04-01] MEDS ORDERED: LIDOCAINE HCL 1% 20 ML VIAL ONE (11:56)
[2019-04-01] MEDS ORDERED: CONRAY 60% 50 ML VIAL ONE (11:56)
[2019-04-01] MEDS ORDERED: HEPARIN (PORCINE) 1000 UNIT/ML 10 ML (CATH LAB USE ONLY) ONE (11:56)
[2019-04-01] MEDS ORDERED: PAPAVERINE HCL INJ 30 MG/ML 2 ML VIAL ONE (11:56)
[2019-04-01] MEDS ORDERED: GELATIN SPONGE SZ 100 ONE (11:57)
[2019-04-01] MEDS ORDERED: IODIXANOL (VISIPAQUE) 270 MG/ML 150ML ONE (11:57)
[2019-04-01] MEDS ORDERED: CEFAZOLIN 250 MG/ML 1 GM VIAL ONE (11:57)
[2019-04-01] MEDS ORDERED: BUPIVACAINE/EPINEPHRINE 0.5% MPF 1:200,000 10 ML VIAL ONE (11:57)
[2019-04-01] MEDS ORDERED: THROMBIN 5000 UNITS KIT ONE (11:57)
[2019-04-01] MEDS ORDERED: LARYING-O-JET KIT (LTA) ONE (13:08)
[2019-04-01] MEDS ORDERED: LIDOCAINE HCL 2% 2 ML VIAL/AMP(20MG/ML) INFIL ONE (13:08)
[2019-04-01] MEDS ORDERED: ONDANSETRON INJ 2 MG/ML 2 ML VIAL ONE (13:08)
[2019-04-01] MEDS ORDERED: DEXAMETHASONE SOD INJ 4 MG/ML VIAL ONE (13:08)
[2019-04-01] MEDS ORDERED: ROCURONIUM BROMIDE 10 MG/ML 5 ML VIAL ONE (13:08)
[2019-04-01] MEDS ORDERED: PROPOFOL IV EMULSION 10 MG/ML 20 ML VIAL IV ONE (13:08)
[2019-04-01] MEDS ORDERED: HEPARIN SOD (PORCINE) 1000 UNIT/ML 10 ML VIAL ONE (13:53)
[2019-04-01] MEDS ORDERED: NEOSTIGMINE METHYLSULFATE 5 MG/5 ML SYR ONE (14:12)
[2019-04-01] MEDS ORDERED: GLYCOPYRROLATE 0.2 MG/ML VIAL ONE (14:12)
[2019-04-01] MEDS ORDERED: PHENYLEPHRINE HCL 10 MG/ML VIAL ONE (14:25)
--- NOTE | 2019-04-01 15:21 | Post Operative Brief Note ---
Immediate Post Op Note v1 Date of Surgery April 01, 2019 Pre & Post Diagnosis Operation Date: 04/01/19 12:10 Pre-Op Diagnosis: Left lower extremity pain, no pulse Post-Op Diagnosis: Left lower extremity pain, no pulse I identified the patient and participated in the time-out.: Yes Procedure Operation Date: 04/01/19 12:10 Actual Procedures p Endovascular Aneurysm Repair, Right Iliac Artery Extension - Rickie Patel MD s Open Femoral to Femoral Graft - Rickie Patel MD Surgeon Rickie Patel MD Mini Shifter MD Darin Estimated Blood Loss 150 Findings Consistent with Post-Op Diagnosis Drains Rodriguez Catheter Anesthesia Type General Complications none Disposition Accompanied Patient To Recovery: No Disposition: Recovery Room
[2019-04-01] MEDS ORDERED: HYDROmorphone INJ 1 MG/ML SYRINGE IV PRN (15:37)
[2019-04-01] MEDS ORDERED: ONDANSETRON INJ 2 MG/ML 2 ML VIAL IV PRN (15:37)
[2019-04-01] MEDS ORDERED: NALOXONE HCL 0.4 MG/1 ML VIAL/CARP IV PRN (15:37)
[2019-04-01] MEDS ORDERED: ATROPINE SULFATE 0.1 MG/ML 10ML SYR IV PRN (15:37)
[2019-04-01] MEDS ORDERED: LABETALOL HCL IV 5 MG/ML 20ML IV PRN (15:37)
[2019-04-01] MEDS ORDERED: ePHEDrine sulfate 50 MG/ML AMP IV PRN (15:37)
[2019-04-01] MEDS ORDERED: PROMETHAZINE HCL 12.5 MG in SODIUM CHLORIDE 0.9% 50 ML IV PRN (15:37)
[2019-04-01] MEDS ORDERED: FLUMAZENIL 0.1 MG/1 ML 10 ML VIAL IV PRN (15:37)
--- NOTE | 2019-04-01 15:52 | Operative Report ---
Post Operative Report Pre & Post Diagnosis Operation Date: 04/01/19 12:10 Pre-Op Diagnosis: Left lower extremity pain, no pulse Post-Op Diagnosis: Left lower extremity pain, no pulse I identified the patient and participated in the time-out.: Yes Procedure Operation Date: 04/01/19 12:10 Actual Procedures p Endovascular Aneurysm Repair, Right Iliac Artery Extension - Rickie Patel MD s Open Femoral to Femoral Graft - Rickie Patel MD Surgeon Paula Patel MD Manager Utilization Management MD John Estimated Blood Loss 150 Findings Consistent with Post-Op Diagnosis Specimens none Anesthesia Type General Complications none Disposition Accompanied Patient To Recovery: No Disposition: Recovery Room Indications Mr. James is a 68-year-old gentleman with history of hypertension CVA who presents with a left foot rest pain that has been worsening from intermittent pains over the last several months. He was admitted to the medical service and placed on a heparin drip. CT scan demonstrated bilateral iliac aneurysms and a small aortic aneurysm as well as left iliac occlusion due to aneurysmal disease and did flow through his right iliac artery due to aneurysmal disease. Was recommended that he undergo an endovascular aortic aneurysm repair and endovascular repair of his right iliac aneurysm and exclusion of the left, with femoral to femoral bypass to restore flow. I have discussed the risks options and benefits of the procedure with the patient. The patient understands the risks options and benefits and agrees to the procedure. Description of Procedure The patient was taken to the operating room and placed supine on the operating table. The patient was identified and procedure confirmed prior to induction of general anesthesia. Next the patient's lower abdomen and bilateral groins were prepped and draped in the standard sterile fashion. A surgical timeout was performed. Needed with exposure bilateral groins. It in both groins and use dissected down to the femoral sheaths. Femoral sheaths were then opened and the femoral arteries exposed. The artery continued down to include superficial femoral arteries and profunda bilaterally the left groin incision was packed with a moist gauze while we proceeded to perform endovascular airs utilizing the right common femoral artery. An 18-gauge Cook used to access the patient's exposed right common femoral artery at a region that was soft without any plaque, a guidewire passed and a 6 Pakistani sheath inserted. An 035 Glidewire was then passed rest of the aortoiliac system. Glidewire was successfully passed the region of aneurysmal disease, and a rim catheter inserted over the guidewire. The wire was removed and an aortogram performed. This demonstrated lateral renal arteries with a distal aortic aneurysm as well as the occluded left common iliac artery and minimal flow through the right iliac due to aneurysmal disease. A Johan wire was then and the rim catheter removed. Next s equential dilation of the arteriotomy in the right common femoral occurred with upsizing all ultimately to an 18 Pakistani dry seal sheath. A 28.5 mm x 14.5 mm x 14 cm C3 endovascular trunk was then inserted and deployed just below the level of the patient's renal arteries. Appropriate seating of the trunk was confirmed with repeat arteriography with continued patent flow to the renal arteries bila terally stent of the next trunk. A 28.5 mm x 14.5 mm x 12.5 cm C3 trunk was placed within the initial trunk and deployed at 180 degrees such that the resolution was exclusion of the patient's left iliac artery aneurysm. Q50 balloon was then used in the proximal portion of the graft to fully expand the grafts. Additionally deployed in the region of graft overlap in the right common iliac. A 16 mm x 14.5 mm x 7 cm iliac cell maker graft was used for distal extension to complete exclusion of the iliac artery aneurysm, with most distal portion of this graft in the patient's external iliac artery. A mariana wire was inserted and ultimately pigtail catheter at just proximal to the trunk piece patient. A 12 mm x 4 cm balloon inserted over the Johan wire and used throughout the and of the device to ensure full deployment of the distal extension and appropriate seating within the trunk. Hand push aortogram through the sheath demonstrated appropriate flow without any obvious endoleak at this time. All wires, balloons and catheters were then removed. The patient's Right profunda and SFA were clamped, the 18 Pakistani sheath removed and the patient's right common femoral artery clamped as well. He was extended the patient common femoral artery out over the proximal portion of the SFA and some visible SFA thrombus removed. A C-clamp was then used to tunnel subcutaneously from the patient's left groin incision above the pubis and out the superior portion of the right groin incision. Seven 8 mm ring Propatent graft was then withdrawn through the tunnel space such that ends were present in both groin incisions. Beginning with the proximal anastomosis the end of the right graft was trimmed to fit the arteriotomy. A small rent in the arteriotomy was repaired using 6-0 Prolene prior to initiation of the anastomosis. Next the anastomosis was created using running 5-0 Prolene suture. Prior to tying the suture backbleeding was allowed to occur through unclamping of the SFA and pr ofunda into and out of the patient's graft, prior to unclamping the right common femoral artery. The graft was then clamped and gel soaked in thrombin placed around the anastomosis to achieve hemostasis and the wound packed with 3 Ray- Eliazar's. Moving to the left groin we next began on the distal anastomosis. Again the patient's left SFA, profunda, and then common femoral arteries were clamped. An arteriotomy was similarly made in the left common femoral to proximal SFA. Visible thrombus in the patient's SFA was removed. Left side unclamping of the patient's SFA there was not noted to be any backbleeding is suspected this is completely occluded, however he had brisk backbleeding from his profunda and a small amount of antegrade flow from his left common femoral due to reconstitution. The graft was beveled to fit the arteriotomy and the anastomosis created using 5-0 running Prolene suture. An antegrade bleeding were allowed to occur as well as release of the bypass graft clamp prior to final closure of the anastomosis to remove any air. Once again gel soaked thrombin was applied for hemostasis. At this point time the right groin was reexamined and gelfoam removed. This wound was found to be hemostatic. The Gelfoam was removed from the patient's left groin and this was hemostatic as well. Doppler signals were performed and it was found that the patient had Doppler flow in his right common femoral peroneal, the bypass graft, as well as the left common femoral peroneal and SFA was performed to the wound beds. Bilateral groin incisions were closed using running 2-0 tissues followed by a running layer of 3-0 Vicryl and then a subcuticular layer of 4-0 Vicryl. The skin itself was sealed with Dermabond which was allowed to dry and then 4 x 4 and Tegaderm dressings placed. At the conclusion of the case the patient had a strong PT signal on the left where none was present preoperatively and the patient gained a DP signal on the right. At the conclusion of the case all sponge and instrument counts were correct. The patient tolerated the procedure well and will be awoken and taken to the anesthesia recovery unit prior to going to the ICU for monitoring overnight. Dr. Patel was present scrubbed for the entirety of the procedure t I attest to the content of the Intraoperative Record and any orders documented therein. Any exceptions are noted below.
[2019-04-01] MEDS ORDERED: LORazepam 1 MG/2 ML VIAL IV STA (16:12)
[2019-04-01] MEDS: fentaNYL citrate 100 MCG/2 ML VIAL IV PRN ×4 (16:15→16:30)
--- NOTE | 2019-04-01 17:03 | Anesthesiology Progress Note ---
Date of Service April 01, 2019 Anesthesia Post Procedure Vital Signs Vital Signs: Temp Pulse Pulse Resp BP BP Pulse Ox 04/01/19 16:35 120 H 18 138/86 98 04/01/19 16:25 122 H 18 168/92 H 100 04/01/19 16:15 123 H 20 143/77 H 100 04/01/19 16:07 36.6 C 124 H 20 138/85 100 04/01/19 12:00 36.5 C 93 H 18 141/96 H 98 04/01/19 09:07 36.4 C L 99 H 19 156/88 H 93 04/01/19 07:26 105 H 04/01/19 04:00 36.6 C 109 H 20 156/76 H 94 03/31/19 23:20 99 H 03/31/19 22:56 36.9 C 101 H 16 130/74 93 03/31/19 19:25 36.9 C 98 H 19 144/83 H 98 Pain Intensity Left Foot: Pain Intensity: 5 Bilateral Groin: Pain Intensity: 3 Transfer of Care Handoff Completed per policy Notes Mental Status: alert / awake / arousable and participated in evaluation Patient Amnestic to Procedure: Yes Nausea / Vomiting: adequately controlled Pain: adequately controlled Airway Patency, RR, SpO2: stable & adequate BP & HR: stable & adequate Hydration State: stable & adequate Anesthetic Complications: no major complications apparent and Pt Satisfied with anesthetic care
[2019-04-01 17:12] LABS: Basophils # (auto) 0.01 K/uL (0-0.2); Basophils % (auto) 0.1 %; Eosinophils # (auto) 0.02 K/uL (0-0.5); Eosinophils % (auto) 0.1 %; Hematocrit (blood only) 41.2 % (42-52); Hemoglobin 14.3 g/dL (14.0-18.0); Immature Granulocytes # (auto) 0.05 K/uL (0.00-0.02); Immature Granulocytes % (auto) 0.4 %; Lymphocytes # (auto) 0.85 K/uL (1.2-3.4); Lymphocytes % (auto) 6.3 %; Mean Corpuscular Hemoglobin 32.7 pg (25-34); Mean Corpuscular Hgb Conc 34.7 g/dL (32-36); Mean Corpuscular Volume 94.3 fL (80-100); Mean Platelet Volume 9.5 fL (7.4-10.4); Monocytes # (auto) 0.34 K/uL (0.11-0.59); Monocytes % (auto) 2.5 %; Neutrophils # (auto) 12.12 K/uL (1.4-6.5); Neutrophils % (auto) 90.6 %; Platelet Count 234 K/uL (130-400); RDW Coefficient of Variation 13.3 % (11.5-14.5); RDW Standard Deviation 45.9 fL (36.4-46.3); Red Blood Count 4.37 M/uL (4.7-6.1); White Blood Count 13.39 K/uL (4.8-10.8)
--- NOTE | 2019-04-01 17:53 | Critical Care Consultation ---
Date of Consultation April 01, 2019 Assessment & Plan (1) Delirium: --Agitated delirium Likely secondary to recent surgery on top of multiple co-morbidities that the patient has For the time being we will put the patient on restraints as he already pulled out his left radial line and left groin dressing. We will put the patient on midozalam 2 mg every 4 hours as needed agitation along with haloperidol 2.5 mg IV as needed agitation. QTC on 03/29/2019 was 446. Will monitor daily EKGs for QTc monitoring Will gradually get rid of restraints once the patient is more calm. one to one for patient --Left lower extremity ischemia Status post bypass surgery by Dr. Patel on 04/01/2019 c/w aspirin, Statin Monitor for pulses, pain management Monitor H&H Patient likely has dry necrosis of the left first toe. There is some scabbing at the lateral aspect of the foot. Likely this is dry necrosis. Unlikely to be infected. We will order ESR/CRP if not significantly elevated will DC the antibiotics. --COPD Not in exacerbation. Patient with active smoking history nicotine patch No x-ray done on this admission. Lungs are clear to auscultation. We will do a routine chest x-ray in the morning. Patient will benefit from pulmonary function test to be done as an outpatient. --Active smoker Greater than [id number] smoking history -- DVT prophylaxis resume heparin once cleared by Vascular surgery Please note the above document was generated using voice recognition software. It may contain grammatical, syntax or spelling errors. I have personally spent 50 minutes of critical care time in the direct management of this patient. This is a life/limb threatening event. This includes time spent evaluating patient, direct bedside care, chart review, placing orders, interpretation of diagnostic studies, discussion with consultants, patient, and family members, as well as other required patient management activities. This time is exclusive of all separately billable procedures, and teaching time and separate from and in addition to any other critical care service time. Please note the above document was generated using voice recognition software. It may contain grammatical, syntax or spelling errors. (2) Ischemia of left lower extremity: (3) CVA (cerebral infarction): (4) Peripheral vascular disease: (5) COPD (chronic obstructive pulmonary disease): (6) Tobacco use disorder: History of Present Illness Attending Physician: Morgan Lovell DO History of Present Illness 68-year-old male with past medical history of hypertension, CVA was admitted to the hospital because of worsening left foot pain which has been getting progressively worse since last couple of months. CT angiogram of the left lower extremity was done which showed atherosclerotic disease with multiple vascular occlusions with bilateral common iliac artery aneurysm. Patient apparently was having delusions that the neighbor has been doing magic for him to get pain in his leg. Patient had endovascular aneurysm repair of the right iliac artery extension and femorofemoral graft by Dr. Patel today. Patient came in with left radial A-line a Rodriguez catheter in place and pressure dressing on bilateral groin. By the time I saw the patient patient was agitated and he pulled the dressing on the left side which started to bleed and he also pulled his left radial A-line. Patient seems to been agitated delirium could be possibly to anesthesia on top of multiple comorbidities that the patient has. On talking to the patient he denies any shortness of breath, no chest pain, no nausea or vomiting. Patient denies any headache or dizziness. He did just wants to get out of the bed. Nursing to talk with the partner who is known the patient for more than 2 years. As per the partner patient has been like this for more than 2 years with bouts of agitation. Patient right now is an agitated delirium unable to obtain much history. HPI obtained from previous records. Allergies Allergy/AdvReac Type Severity Reaction Status Date / Time No Known Allergies Allergy Unverified 03/29/19 13:15 Home Medications Home Medications Medication Instructions Recorded Confirmed Type multivitamin 1 tab PO QAM #0 tab 04/22/13 03/29/19 History metoprolol succinate 0 mg PO QAM 01/16/19 03/29/19 History gabapentin 100 mg PO TID #30 cap 02/16/19 03/29/19 Rx acetaminophen [Tylenol Extra 500 mg PO Q6H PRN 03/13/19 03/29/19 History Strength] aspirin 81 mg PO QAM 03/13/19 03/29/19 History Patient History Medical History Aphasia (Acute 04/22/13) Confused (Acute 04/22/13) Confusion (Acute) CVA (cerebral infarction) (Acute) Delirium (Acute 04/23/13) HTN (hypertension) (Chronic) Surgical History No pertinent past surgical history Family History Other Family history non-contributory Social History Preferred Language: [place] Communication Ability: Effective Beliefs That Will Affect Care: None marital status: Single Current Living Situation: Alone Feels Safe at Home: No Safety Concerns: Afraid for Self Smoking Status: Light tobacco smoker Hx Alcohol Use: No Hx Substance Use: No Review of Systems Review of Systems: Unobtainable due to cognitive status Physical Exam Physical Exam: Constitutional: Restless HEENT: EOMI, PERRLA, arcus senilis bilaterally Respiratory system: Good air entry bilaterally, no wheeze, no rhonchi, no crackles CVS: S1-S2 positive, no murmurs or gallops, tachycardia Abdomen: Soft, nontender, nondistended, positive bowel sounds x4, obese Extremities: Decreased pulses bilateral dorsalis pedis, cold left lower extremity, warm right lower extremity, no edema, left first toe cyanotic at the tip, there is dry scabbing on the lateral aspect of the foot, nontender, cold to touch. No fluctuance appreciated. Neuro: Patient is restless oriented to self. Psych: Agitated mood G/U: Positive Rodriguez Skin: no rashes, warm and dry Lymphatic: no cervical or axillary lymphadenopathy Results & Data Vital Signs (Past 12 Hours) Vital Signs Temp Pulse Pulse Resp BP BP Pulse Ox 04/01/19 16:35 120 H 18 138/86 98 04/01/19 16:25 122 H 18 168/92 H 100 04/01/19 16:15 123 H 20 143/77 H 100 04/01/19 16:07 36.6 C 124 H 20 138/85 100 04/01/19 12:00 36.5 C 93 H 18 141/96 H 98 04/01/19 09:07 36.4 C L 99 H 19 156/88 H 93 04/01/19 07:26 105 H 04/01/19 17:03 03/31/19 07:31 Coding Level of Care Code New Pt Critical Care 1st 30-74 mins Patient Type New Diagnoses Delirium R41.0 Ischemia of left lower extremity I99.8 CVA (cerebral infarction) I63.9 Peripheral vascular disease I73.9 COPD (chronic obstructive pulmonary disease) J44.9 Tobacco use disorder F17.200 Time Spent (min) 50
[2019-04-01] MEDS: MoRPHine SULFATE 4 MG/ML 1 ML CARP\\VIAL IV PRN ×2 (18:16→20:32)
[2019-04-01] MEDS: D5W AND 1/2NSS 1,000 ML IV SCH (18:20)
[2019-04-01] MEDS ORDERED: Nursing to Pharmacy Communication ONE (18:33)
[2019-04-01] MEDS: MIDAZOLAM HCL 1 MG/ML 2ML VIAL IV PRN (20:34)
[2019-04-01] MEDS: HALOPERIDOL LACTATE 5 MG/ML 1 ML VIAL IV PRN (23:25)
[2019-04-02] MEDS: D5W AND 1/2NSS 1,000 ML IV SCH ×2 (02:13→18:29)
[2019-04-02] MEDS: MoRPHine SULFATE 4 MG/ML 1 ML CARP\\VIAL IV PRN (02:48)
[2019-04-02] MEDS: MIDAZOLAM HCL 1 MG/ML 2ML VIAL IV PRN (02:48)
[2019-04-02 04:49] LABS: Basophils # (auto) 0.01 K/uL (0-0.2); Basophils % (auto) 0.1 %; Eosinophils # (auto) 0.03 K/uL (0-0.5); Eosinophils % (auto) 0.2 %; Hemoglobin 12.9 g/dL (14.0-18.0); Immature Granulocytes # (auto) 0.03 K/uL (0.00-0.02); Immature Granulocytes % (auto) 0.2 %; Lymphocytes # (auto) 1.79 K/uL (1.2-3.4); Lymphocytes % (auto) 14.7 %; Mean Corpuscular Hgb Conc 33.9 g/dL (32-36); Mean Corpuscular Volume 94.3 fL (80-100); Mean Platelet Volume 9.6 fL (7.4-10.4); Monocytes # (auto) 1.65 K/uL (0.11-0.59); Monocytes % (auto) 13.5 %; Neutrophils % (auto) 71.3 %; Platelet Count 208 K/uL (130-400); RDW Coefficient of Variation 13.2 % (11.5-14.5); RDW Standard Deviation 45.5 fL (36.4-46.3); Red Blood Count 4.03 M/uL (4.7-6.1); White Blood Count 12.21 K/uL (4.8-10.8)
[2019-04-02 04:59] LABS: INR 1.1 (0.9-1.1); Prothrombin Time 11.3 Seconds (9.0-12.0)
[2019-04-02 05:06] LABS: BUN Creatinine Ratio 14.3 (10-20); Calcium 8.7 mg/dl (8.5-10.1); Creatinine Clr Calc Pharmacy 70.7 ml/min; Est GFR (African American) 94.8; Est GFR (Non-African American) 81.8; Magnesium 1.9 mg/dl (1.8-2.4); Potassium 3.8 mmol/L (3.5-5.1)
--- NOTE | 2019-04-02 08:19 | Critical Care Progress Note ---
Date of Service April 02, 2019 Assessment & Plan (1) Delirium: --Agitated delirium Likely secondary to recent surgery on top of multiple co-morbidities that the patient has For the time being we will put the patient on restraints as he already pulled out his left radial line and left groin dressing. We will try to remove the restraints as patient is more calm today. On midozalam 2 mg every 4 hours as needed agitation along with haloperidol 5 mg IV [id number] needed agitation. QTC on 04/02/2019 was 440. Will monitor daily EKGs for QTc monitoring Will gradually get rid of restraints as patient is more calm today Continue with one to one for patient --Left lower extremity ischemia Status post bypass surgery by Dr. Patel on 04/01/2019 c/w aspirin, Statin Monitor for pulses, pain management Monitor H&H Patient likely has dry necrosis of the left first toe. There is some scabbing at the lateral aspect of the foot. Likely this is dry necrosis. Unlikely to be infected. Leukocytosis is likely post or reactive. ESR and CRP minimally elevated. Unlikely to be infection. Recommend discontinuing antibiotics --COPD Not in exacerbation. Patient with active smoking history nicotine patch X-ray 04/02/2019: Portable film good inspiratory effort, costophrenic cardiophrenic angles clean, no clear infiltrate appreciated. Patient will benefit from pulmonary function test to be done as an outpatient. --Active smoker Greater than [id number] smoking history -- DVT prophylaxis resume heparin once cleared by Vascular surgery given hemoglobin stable after repeat H&H Plan: Gradually remove the restraints. Repeat H&H as there is gradual drop in hemoglobin. Likely dilutional from IV fluids. Patient is hemodynamically stable to be downgraded to medical floor. Please note the above document was generated using voice recognition software. It may contain grammatical, syntax or spelling errors. I have personally spent 35 minutes of critical care time in the direct management of this patient. This is a life/limb threatening event. This includes time spent evaluating patient, direct bedside care, chart review, placing orders, interpretation of diagnostic studies, discussion with consultants, patient, and family members, as well as other required patient management activities. This time is exclusive of all separately billable procedures, and teaching time and separate from and in addition to any other critical care service time. Please note the above document was generated using voice recognition software. It may contain grammatical, syntax or spelling errors. (2) Ischemia of left lower extremity: (3) CVA (cerebral infarction): (4) Peripheral vascular disease: (5) COPD (chronic obstructive pulmonary disease): (6) Tobacco use disorder: Subjective Patient seen and examined at bedside. No acute distress. Patient still has mittens and restraints on. Overnight patient got total 2 dose of haloperidol and midazolam as he was restless and fighting to get out of the bed. In the morning today patient is calm answering all the questions appropriately. Wants to eat. He denies any chest pain, no shortness of breath. States that he slept well. Patient is awake alert and oriented to self and place and time Denies any nausea or vomiting. EKG done early in the morning showed QTC of 440 Review of Systems Review of Systems: All systems reviewed & are unremarkable except as noted in HPI & below Physical Exam Physical Exam: Constitutional: No acute distress HEENT: EOMI, PERRLA, arcus senilis bilaterally Respiratory system: Good air entry bilaterally, no wheeze, no rhonchi, mild crackles bilateral lower lobes CVS: S1-S2 positive, no murmurs or gallops, tachycardia Abdomen: Soft, nontender, nondistended, positive bowel sounds x4, obese Extremities: Decreased pulses bilateral dorsalis pedis, cold left lower extremity, warm right lower extremity, no edema, left first toe cyanotic at the tip, there is dry scabbing on the lateral aspect of the foot, nontender, cold to touch. No fluctuance appreciated. Neuro: Oriented x3 Psych: Calm mood today G/U: Positive Rodriguez Skin: no rashes, warm and dry Lymphatic: no cervical or axillary lymphadenopathy Results & Data Vital Signs (Past 12 Hours) Vital Signs Temp Pulse Pulse Resp BP BP Pulse Ox 04/02/19 08:00 116 H 16 100 04/02/19 07:43 121 H 21 156/84 H 100 04/02/19 07:38 36.7 C 119 H 25 H 100 04/02/19 07:30 113 H 15 100 04/02/19 07:08 110 H 14 169/95 H 100 04/02/19 07:00 110 H 16 100 04/02/19 06:45 110 H 15 04/02/19 06:00 109 H 20 130/94 100 04/02/19 05:00 109 H 18 158/77 H 100 04/02/19 04:00 117 H 21 139/83 100 04/02/19 03:00 37 C 106 H 20 122/94 99 04/02/19 02:00 104 H 14 174/97 H 99 04/02/19 01:00 111 H 128/81 100 04/02/19 00:00 100 H 112 H 16 100/73 98 04/01/19 23:00 104 H 16 95/73 L 98 04/01/19 22:00 120 H 27 H 108/93 100 04/01/19 21:00 112 H 20 101/78 100 04/02/19 04:27 04/02/19 04:27 Coding Level of Care Code Critical Care 1st 30-74 mins Diagnoses Delirium R41.0 Ischemia of left lower extremity I99.8 CVA (cerebral infarction) I63.9 Peripheral vascular disease I73.9 COPD (chronic obstructive pulmonary disease) J44.9 Tobacco use disorder F17.200 Time Spent (min) 35
[2019-04-02] MEDS: ATORVASTATIN 40 MG TAB PO SCH (08:22)
[2019-04-02] MEDS: MULTIVITAMIN TAB PO SCH (08:22)
[2019-04-02] MEDS: CLINDAMYCIN 600 MG in DEXTROSE 5% 50 ML IV SCH ×2 (08:22→16:15)
[2019-04-02] MEDS: METOPROLOL SUCC 25MG EXT REL TAB PO SCH (08:23)
[2019-04-02] MEDS: NICOTINE 14 MG/24 HR PATCH TD SCH (08:24)
[2019-04-02] MEDS: ASPIRIN 81 MG ECTAB PO SCH (08:24)
[2019-04-02] MEDS: GABAPENTIN 100 MG CAP PO SCH ×3 (08:24→20:21)
--- NOTE | 2019-04-02 08:24 | XRay Report ---
XR chest 1V portable CLINICAL HISTORY: f/u COMPARISON STUDY: Chest radiograph January 16, 2019. FINDINGS: Lung volumes are normal. Minimal left basilar opacity favors atelectasis. There is no pneum othorax or pleural effusion. Mild cardiomegaly is unchanged. Mediastinal contours are normal. There i s no evidence for pulmonary edema. IMPRESSION: No acute cardiopulmonary findings. ACT 112: Negative or not required by law. Electronically signed by: Franco Emmanuel M.D. 04/02/2019 8:22 AM
--- NOTE | 2019-04-02 08:58 | Surgery Progress Note ---
Date of Service April 02, 2019 Assessment & Plan (1) Ischemia of left lower extremity: PT POD #1 after EVAR with R to L fem fem BPG. Pt doing well, good doppler BLE. L foot warm, hgb stable. OK for transfer out of ICU from vascular standpoint. Subjective 68 yo m POD #1 after endovascular aneurysm repair with R to L fem fem BPG, seen in f/u today. Pt states no significant pain and his L foot is feeling better. Review of Systems Review of Systems: All systems reviewed & are unremarkable except as noted in HPI & below Physical Exam Constitutional: WD/WN, vitals as above healthy appearing; not ill appearing and not in distress Cardiovascular: Vessels: femoral pulses present, posterior tibial pulses present and dorsalis pedis pulses present; + abnormal peripheral pulses Extremities: normal capillary refill Gastrointestinal (Abdomen): normal bowel sounds, soft, nontender, no hepatosplenomegaly Skin: + incision (BL groins intact, +local ecchymosis, soft edema. No erythema.) Psychiatric: Mood: + irritable mood (sleeping but easily rouseable. ) Results & Data Vital Signs (Past 12 Hours) Vital Signs Temp Pulse Pulse Resp BP BP Pulse Ox 04/02/19 08:00 116 H 16 100 04/02/19 07:43 121 H 21 156/84 H 100 04/02/19 07:38 36.7 C 119 H 25 H 100 04/02/19 07:30 113 H 15 100 04/02/19 07:08 110 H 14 169/95 H 100 04/02/19 07:00 110 H 16 100 04/02/19 06:45 110 H 15 100 04/02/19 06:00 109 H 20 130/94 100 04/02/19 05:00 109 H 18 158/77 H 100 04/02/19 04:00 117 H 21 139/83 100 04/02/19 03:00 37 C 106 H 20 122/94 99 04/02/19 02:00 104 H 14 174/97 H 99 04/02/19 01:00 111 H 128/81 100 04/02/19 00:00 100 H 112 H 16 100/73 98 04/01/19 23:00 104 H 16 95/73 L 98 04/01/19 22:00 120 H 27 H 108/93 100 04/01/19 21:00 112 H 20 101/78 100
--- NOTE | 2019-04-02 09:59 | Hospitalist Progress Note ---
Date of Service April 02, 2019 Assessment & Plan (1) Ischemia of left lower extremity: 68 y/o M w/ PVD, HTN, CVA, presented w/ ischemic left lower extremity found to have delusions and experiencing agitation while hospitalized. - longstanding, serve peripheral vascular disease - Aorta runoff CTA 03/30 showing bilateral common iliac artery aneurysms which measure up to 2.2 cm, as well as a small aortic aneurysm. The aneurysm to the left leg is totally occluded. The aneurysm to the right leg has a small channel with minimal flow. - vascular surgery performed femorofemoral bypass 04/01/19 - discontinued Clindamycin for cellulitis/necrosis given no signs of infection, if signs develop reinitiate - continue atorvastatin 40mg, daily for plaque stabilization - continue ASA 81mg daily DVT: Heparin when cleared by surgery Code: full code FENGI: regular diet, speech evaluation due to cough with feeding (2) Delusion: - Patient has pulled out multiple lines and is currently in restraints with a one-one - PRN Midazolam 2mg Q4H available - PRN Haldol 5 mg Q6H available - Psych consult placed, appreciate recs (3) Needle phobia: - patient periodically denying vascular access due to needle phobia - Ativan prn for necessary blood draws (4) COPD (chronic obstructive pulmonary disease): - active smoker with >50 ppy hx. - nicotine patch - CXR w/ no acute cardiopulmonary findings - consider outpatient PFT's (5) Toxic encephalopathy: (6) Acute blood loss anemia: - 150 mL intraoperative blood loss - H& H slightly low at 12.9 and 38.0 - will continue to monitor with AM CBC (7) Tachycardia: - consistently tachycardic w/ HR 109 this morning, considering fluid status, less likely infection given no other other overt signs, and afebrile; potentially could be associated to anxiety - will continue to monitor Supervising Physician Co-Signing Physician Notes I saw the patient this morning with the resident physician and confirmed celis portions of the history and exam. He is seated next to bed, appears comfortable, pain is well controlled. Downgrade from ICU to telemetry. CBC in AM. Subjective Doing well this morning he had no specific complaints and had no questions for me. Not currently endorsing any pain in his feet. Review of Systems Constitutional: no fever and no chills Respiratory: no cough denies shortness of breath Cardiovascular: no chest pain, no palpitations and no edema Gastrointestinal: no abdominal pain, no nausea and no vomiting Genitourinary: no dysuria, no difficulty urinating and no urinary frequency Physical Exam Constitutional: WD/WN, vitals as above Eyes: PERRL, conjunctivae normal, anicteric sclerae ENMT: external ear and nose normal, oropharynx normal Neck: trachea midline, no thyromegaly Respiratory: normal respiratory effort, lungs clear to auscultation Cardiovascular: RRR, no murmur, no edema Gastrointestinal (Abdomen): normal bowel sounds, soft, nontender, no hepatosplenomegaly Skin: Right foot is white and cool Left foot is warm and erythematous Psychiatric: Affect: + anxious affect Results & Data Vital Signs (Past 12 Hours) Vital Signs Temp Pulse Pulse Resp BP BP Pulse Ox 04/02/19 08:00 116 H 16 100 04/02/19 07:43 121 H 21 156/84 H 100 04/02/19 07:38 36.7 C 119 H 25 H 100 04/02/19 07:30 113 H 15 100 04/02/19 07:08 110 H 14 169/95 H 100 04/02/19 07:00 110 H 16 100 04/02/19 06:45 110 H 15 100 04/02/19 06:00 109 H 20 130/94 100 04/02/19 05:00 109 H 18 158/77 H 100 04/02/19 04:00 117 H 21 139/83 100 04/02/19 03:00 37 C 106 H 20 122/94 99 04/02/19 02:00 104 H 14 174/97 H 99 04/02/19 01:00 111 H 128/81 100 04/02/19 00:00 100 H 112 H 16 100/73 98 04/01/19 23:00 104 H 16 95/73 L 98 04/01/19 22:00 120 H 27 H 108/93 100 Resident Activity Tracking Resident Involvement: Resident Care Provided Care Provided: Adult Hospital Medicine
[2019-04-02] MEDS: OXYCODONE/ACETAMINOPHEN 5mg/325mg TAB PO PRN ×2 (12:12→17:19)
[2019-04-02] MEDS ORDERED: Nursing to Pharmacy Communication ONE (14:29)
[2019-04-02] MEDS: METOPROLOL TARTRATE 25 MG TAB PO SCH (17:16)
[2019-04-02] MEDS: HALOPERIDOL LACTATE 5 MG/ML 1 ML VIAL IV PRN (23:30)
[2019-04-03] MEDS: MoRPHine SULFATE 4 MG/ML 1 ML CARP\\VIAL IV PRN (01:06)
[2019-04-03] MEDS: OXYCODONE/ACETAMINOPHEN 5mg/325mg TAB PO PRN ×2 (06:32→15:43)
[2019-04-03] MEDS: NICOTINE 14 MG/24 HR PATCH TD SCH (07:57)
[2019-04-03] MEDS: ASPIRIN 81 MG ECTAB PO SCH (07:58)
[2019-04-03] MEDS: METOPROLOL TARTRATE 25 MG TAB PO SCH ×2 (07:58→19:58)
[2019-04-03] MEDS: MULTIVITAMIN TAB PO SCH (07:59)
[2019-04-03] MEDS: ATORVASTATIN 40 MG TAB PO SCH (07:59)
[2019-04-03] MEDS: GABAPENTIN 100 MG CAP PO SCH ×3 (07:59→19:58)
[2019-04-03 08:10] LABS: Basophils # (auto) 0.01 K/uL (0-0.2); Basophils % (auto) 0.1 %; Eosinophils # (auto) 0.01 K/uL (0-0.5); Eosinophils % (auto) 0.1 %; Hematocrit (blood only) 35.6 % (42-52); Hemoglobin 12.3 g/dL (14.0-18.0); Immature Granulocytes # (auto) 0.07 K/uL (0.00-0.02); Immature Granulocytes % (auto) 0.4 %; Lymphocytes # (auto) 1.11 K/uL (1.2-3.4); Lymphocytes % (auto) 6.2 %; Mean Corpuscular Hgb Conc 34.6 g/dL (32-36); Mean Corpuscular Volume 92.7 fL (80-100); Mean Platelet Volume 9.7 fL (7.4-10.4); Monocytes # (auto) 2.28 K/uL (0.11-0.59); Monocytes % (auto) 12.8 %; Neutrophils # (auto) 14.35 K/uL (1.4-6.5); Neutrophils % (auto) 80.4 %; Platelet Count 164 K/uL (130-400); RDW Coefficient of Variation 13.3 % (11.5-14.5); RDW Standard Deviation 45.2 fL (36.4-46.3); Red Blood Count 3.84 M/uL (4.7-6.1); White Blood Count 17.83 K/uL (4.8-10.8)
[2019-04-03 08:18] LABS: INR 1.3 (0.9-1.1)
--- NOTE | 2019-04-03 11:06 | Psychiatric Progress Note ---
Date of Service April 03, 2019 Impression / Recommendations Impression RECOMMENDATIONS: 03/31 - Gather collateral information from outpatient supports to better assess the timeline of these delusional beliefs - Pt has several risk factors for delirium: advanced age, prior CVA, and multiple complicating medical issues. History of these beliefs will allow us to better determine if the thoughts are related to a psychiatric disorder or better explained by possible delirium. Upcoming surgery may further complicate this during the acute recovery phase. - As patient is not actively agitated and history regarding delusions is limited, would not suggest prophylactically starting antipsychotic medications. - Will plan to reassess patient prior to discharge consideration to evaluate any changes in these beliefs or safety concerns at that time - Pt is not clearly demonstrating an acute risk of harm to others; but recommend monitoring of these statements. 04/03 - Documentation suggests patient has been more irritable in the evenings and has been experiencing insomnia while in the hospital. Could consider utilizing quetiapine 50mg only as needed in the evenings for insomnia/anxiety - as patient had previously tolerated this mediation (previously prescribed 50mg BID for agitation during hospitalization - 2013) - Attempts were made to gather collateral information regarding patient's beliefs that the issues to his foot are being caused by neighbor's Samaritan. 2 of the patient's close supports verbalized similar concerns, believing that his medical issues were the result of unexplainable black magic. Therefore, they were not able to provide a reliable timeline or history of symptoms - At this point, it does not seem likely that these beliefs will change - of note, which these seem to be delusional thoughts, they may also be a part of patient's core belief system and may not be amenable to psychiatric medications. Bigger focus at this time would be any safety concerns, with patient is denying - Pt denies SI/HI, stating he does not wish to harm these individuals, denies safety concerns surrounding returning to his apartment. No acute indication for psychiatric hospitalization. - Pt denies further needs from our service at this time Interval History Identifying Information 68-year-old male admitted medically on 03/29/2019 after presenting to the ED with worsening left foot pain. Pt is being treated medically for ischemic changes to his left leg and present plan is for vascular surgery on 04/01/2019. Psychiatric consultation was requested due to patient reporting thoughts to harm specific individuals and verbalizing belief they are using [employer]aritan against him. Chief Complaint "Oh, I'm fine now. Better since the surgery, I was real anxious before hand." Review of Systems Notes Constitutional: reports mild fatigue, awoken from nap Cardiovascular: denied Respiratory: denied Gastrointestinal: denied Neurological: denied Musculoskeletal: reports improvement in left foot pain Psychiatric: denies symptoms other than stated above Total of at least 10 systems reviewed, pertinent positives as above and in HPI. Subjective Subjective Yasmany James is a 68-year-old male admitted medically on 03/29/2019 after presenting to the ED with complaints of worsening left foot pain. Ischemic changes to his left leg were noted, and patient has received a vascular surgery consultation. Present plan is for operative procedure on 04/01/2019 to target these changes. Psychiatric consultation was reportedly requested as patient has been verbalizing thoughts to harm specific individuals living at his apartment complex, verbalizing the belief they are using judaism against him. Psychiatric consultation initiated on 03/31/2019 - seen today for follow-up visit. Pt is agreeable with conversation, unfortunately was awoken from sleep. He verbalized consent to allow Irlanda Cameron PA-C to observe today's encounter. He states that he has been feeling much better since his surgery and he hopeful to be returning home soon. He continues to verbalize that the only explanation for his vascular symptoms is Samaritan/Black Magic being performed by his neighbors/ma intenance men at [facility]. Surprisingly, he has two close supports who feel similarly, that his symptoms are being brought on by black magic. He states that he has been less anxious since his surgery, but does admit to difficulty sleeping due to feeling anxious/overwhelmed. Pt does not recall times of him being upset or agitated while in the hospital. He denies SI/HI during our encounter. He is agreeable with utilization of quetiapine as he needs the medication for sleep/agitation/anxiety but does state "I already take so many pills, I'd like to not add something new if I don't have to." He agreed with the medication being available just if he requested it or if nurses feel he may benefit from a dose. Risks, benefits, and potential side effects were reviewed. He denied other needs or concerns at this time. Physical Exam Psychiatric Orientation: alert, oriented x 3 and cooperative Apperance: appropriately dressed and + disheveled Eye Contact: good eye contact Motor Behavior: no abnormal motor movements (observed while laying in bed) Speech: + loud speech and normal rate/rhythm/volume of speech (raspy tone) Affect: + irritable affect (mildly so; improved from initial interview) Mood: + anxious mood (Improved since surgery); no depressed mood Persistent mild anxiety, reportedly interfering with sleep Thought Process: goal directed thought process Thought Content: + delusions (continues to believe his foot issues are related to black magic) Suicidal Thoughts: denies suicidal thoughts Homicidal Thoughts: denies homicidal thoughts Hallucinations: no auditory hallucinations and no visual hallucinations Cognition: attention grossly intact and language grossly intact Insight: + limited insight Judgement: + fair judgement Vital Signs (Past 24 Hours) Last Vital Signs Temp 37.0 C 04/03/19 07:09 Pulse 133 H 04/03/19 07:09 Resp 20 04/03/19 07:09 BP 136/74 04/03/19 07:09 Pulse Ox 91 04/03/19 07:09 Results & Data Laboratory Results Laboratory Results - last 24 hr 03/31/19 04/03/19 04/03/19 10:36 07:29 07:56 WBC 17.83 H RBC 3.84 L Hgb 12.3 L Hct 35.6 L MCV 92.7 MCH 32.0 MCHC 34.6 RDW Std Deviation 45.2 RDW Coeff of Maddison 13.3 Plt Count 164 MPV 9.7 Immature Gran % (Auto) 0.4 Neut % (Auto) 80.4 Lymph % (Auto) 6.2 [place] % (Auto) 12.8 Eos % (Auto) 0.1 Baso % (Auto) 0.1 Immature Gran # (Auto) 0.07 H Neut # (Auto) 14.35 H Lymph # (Auto) 1.11 L [place] # (Auto) 2.28 H Eos # (Auto) 0.01 Baso # (Auto) 0.01 PT INR POC Glucose 155 H Crossmatch See Detail 04/03/19 07:56 WBC RBC Hgb Hct MCV MCH MCHC RDW Std Deviation RDW Coeff of Maddison Plt Count MPV Immature Gran % (Auto) Neut % (Auto) Lymph % (Auto) [place] % (Auto) Eos % (Auto) Baso % (Auto) Immature Gran # (Auto) Neut # (Auto) Lymph # (Auto) [place] # (Auto) Eos # (Auto) Baso # (Auto) PT 13.0 H INR 1.3 H POC Glucose Crossmatch Current Inpatient Medications Current Inpatient Medications: Current Inpatient Medications Acetaminophen (Tylenol) 650 mg PO Q4H PRN PRN Reason: Pain or Fever Stop: 04/28/19 20:17 Al Hydrox/Mg Hydrox/Simethicone (Maalox) 15 ml PO Q4H PRN PRN Reason: Dyspepsia Stop: 04/28/19 20:17 Aspirin (Ecotrin Ectab) 81 mg PO [facility] Stop: 04/28/19 20:17 Last Admin: 04/03/19 07:58 Dose: 81 mg Documented by: Atorvastatin Calcium (Lipitor) 40 mg PO [facility] Stop: 04/29/19 10:44 Last Admin: 04/03/19 07:59 Dose: 40 mg Documented by: Gabapentin (Neurontin) 100 mg PO TID [facility] Stop: 04/28/19 20:59 Last Admin: 04/03/19 07:59 Dose: 100 mg Documented by: Haloperidol Lactate (Haldol) 5 mg IV Q6 PRN PRN Reason: Agitation Stop: 05/01/19 17:56 Last Admin: 04/02/19 23:30 Dose: 5 mg Documented by: Magnesium Hydroxide (Milk Of Magnesia) 30 ml PO Q12H PRN PRN Reason: Constipation Stop: 04/28/19 20:17 Metoprolol Tartrate (Lopressor) 12.5 mg PO BID [facility] Stop: 05/02/19 20:59 Last Admin: 04/03/19 07:58 Dose: 12.5 mg Documented by: Midazolam HCl (Versed) 2 mg IV Q3H PRN PRN Reason: Agitation Stop: 05/01/19 17:56 Last Admin: 04/02/19 02:48 Dose: 2 mg Documented by: Miscellaneous (Remove Nicoderm Patch) 1 ea N/A DAILY@[id number] [facility] Stop: 04/30/19 08:58 Last Admin: 04/03/19 07:59 Dose: 1 ea Documented by: Morphine Sulfate (Morphine Sulfate) 1 - 4 mg IV Q2H PRN PRN Reason: Severe Pain Stop: 04/15/19 16:37 Last Admin: 04/03/19 01:06 Dose: 3 mg Documented by: Multivitamins (Multivitamin Tab) 1 tab PO QAM [facility] Stop: 04/29/19 08:59 Last Admin: 04/03/19 07:59 Dose: 1 tab Documented by: Nicotine (Nicoderm Cq) 14 mg TD QAM [facility] Stop: 04/30/19 08:59 Last Admin: 04/03/19 07:57 Dose: 14 mg Documented by: Oxycodone/Acetaminophen (Percocet 5mg/325mg) 2 tab PO Q4H PRN PRN Reason: Pain Stop: 04/13/19 03:12 Last Admin: 04/03/19 06:32 Dose: 2 tab Documented by: Polyethylene Glycol (Miralax Powder Packet) 17 gm PO DAILY PRN PRN Reason: Constipation Stop: 04/28/19 20:17
[2019-04-03] MEDS ORDERED: QUETIAPINE FUMARATE 25 MG TABLET PO PRN (12:00)
--- NOTE | 2019-04-03 12:06 | Surgery Progress Note ---
Date of Service April 03, 2019 Assessment & Plan (1) Ischemia of left lower extremity: PT POD #2 after EVAR with R to L fem fem BPG. Pt doing well, good doppler BLE. OK for d/c home from vascular standpoint. Will see in office in 2-4 weeks. Please call if needed. Subjective 68 yo m with multiple medical problems, POD #2 after EVAR and R to L fem fem BPG seen in f/u today. Pt admits some incisional pain. Denies any other new compl aints. States is ambulating well and wishes to go home. Physical Exam Constitutional: WD/WN, vitals as above healthy appearing; not ill appearing and not in distress Cardiovascular: Vessels: femoral pulses present, posterior tibial pulses present and dorsalis pedis pulses present; + abnormal peripheral pulses Extremities: normal capillary refill Gastrointestinal (Abdomen): normal bowel sounds, soft, nontender, no hepatosplenomegaly Skin: + incision (BL groins intact, +local ecchymosis, soft edema. No erythema.) Psychiatric: A+Ox3, euthymic affect Results & Data Vital Signs (Past 12 Hours) Vital Signs Temp Pulse Pulse Resp BP Pulse Ox 04/03/19 11:12 36.9 C 110 H 18 127/72 95 04/03/19 07:09 37.0 C 133 H 20 136/74 91 04/03/19 05:45 122 H
--- NOTE | 2019-04-03 17:30 | Electrocardiogram Report ---
Test Reason : Blood Pressure : / mmHG Vent. Rate : 111 BPM Atrial Rate : 111 BPM P-R Int : 190 ms QRS Dur : 090 ms QT Int : 324 ms P-R-T Axes : 019 -23 046 degrees QTc Int : 440 ms Sinus tachycardia Otherwise normal ECG When compared with ECG of 29-MAR-2019 13:39, No significant change was found Confirmed by Pascual Arriaga ([id number]) on 04/03/2019 5:30:09 PM Referred By: REFERRED SELF Confirmed By:Jose Luis Arriaga
--- NOTE | 2019-04-03 17:49 | Hospitalist Progress Note ---
Date of Service April 03, 2019 Assessment & Plan (1) Ischemia of left lower extremity: 68 y/o M w/ PVD, HTN, CVA, presented w/ ischemic left lower extremity found to have delusions and experiencing agitation while hospitalized. - longstanding, serve peripheral vascular disease - Aorta runoff CTA 03/30 showing bilateral common iliac artery aneurysms which measure up to 2.2 cm, as well as a small aortic aneurysm. The aneurysm to the left leg is totally occluded. The aneurysm to the right leg has a small channel with minimal flow. - vascular surgery performed femorofemoral bypass 04/01/19 - discontinued Clindamycin - continue atorvastatin 40mg, daily for plaque stabilization - continue ASA 81mg daily - Vascular surgery will follow up in 2-4 weeks - PT rec for rehab DVT: Lovenox 40 mg SQ Code: full code FENGI: regular diet, speech evaluation due to cough with feeding (2) Delusion: - Patient has pulled out multiple lines and is currently in restraints with a one-one , overall improved - PRN Midazolam 2mg Q4H available - PRN Haldol 5 mg Q6H available - Psych consult placed, appreciate recs (3) Needle phobia: - patient periodically denying vascular access due to needle phobia - Ativan prn for necessary blood draws (4) COPD (chronic obstructive pulmonary disease): - active smoker with >50 ppy hx. - nicotine patch - CXR w/ no acute cardiopulmonary findings - consider outpatient PFT's (5) Toxic encephalopathy: (6) Acute blood loss anemia: - 150 mL intraoperative blood loss - H& H slightly low at 12.3 and 35.6 - will continue to monitor with AM CBC (7) Tachycardia: - consistently tachycardic w/ HR 130's this morning, considering fluid status, less likely infection given no other other overt signs, and afebrile; potentially could be associated to anxiety other potential cause is fluid retention, patient was able to urinate this morning and had corresponding drop in HR back to the low 100's - will continue to monitor (8) Leukocytosis: - WBC 17.83 up from 12.21 in the post op setting, likely due to surgery but will trend to ensure that no infective process is driving the WBC, patient has been consistently tachycardic which makes it difficult - will follow up w/ AM CBC Supervising Physician Co-Signing Physician Notes I saw the patient this morning with the resident physician and confirmed celis portions of the history and exam. I agree with the above impression and plan. I also discussed the case with vascular surgery. Patient is out of bed, no complaints. I saw him later in the day ambulating, 1 person guard, with PT. He remains mildly tachycardic, although in reviewing old records, this looks to be his baseline. He has a mild leukocytosis, but otherwise, no signs of infection. 1) Continue beta unique 2) Repeat CBC in AM 3) PT recommends inpatient PT Subjective Doing well today with left leg pain earlier that was dull and improved with pain medication. He brought up that he has a history of elevated heart rates in the past. He had no questions today. Review of Systems Constitutional: no fever and no chills Respiratory: no cough and no sputum production denies shortness of breath Cardiovascular: no chest pain and no palpitations Gastrointestinal: no nausea and no vomiting denies passing gas or having a bowel movement Genitourinary: no dysuria, no difficulty urinating and no urinary frequency Neurologic: no headache(s) Physical Exam Constitutional: WD/WN, vitals as above Eyes: PERRL, conjunctivae normal, anicteric sclerae ENMT: external ear and nose normal, oropharynx normal Neck: trachea midline, no thyromegaly Respiratory: normal respiratory effort, lungs clear to auscultation Cardiovascular: RRR, no murmur, no edema unable to appreciate DP or PT pulses bilaterally Gastrointestinal (Abdomen): normal bowel sounds, soft, nontender, no hepatosplenomegaly Skin: Left foot is warm Right foot is cool Psychiatric: Affect: + anxious affect Results & Data Vital Signs (Past 12 Hours) Vital Signs Temp Pulse Pulse Resp BP Pulse Ox 04/03/19 16:57 37.6 C H 04/03/19 16:26 126 H 04/03/19 15:30 37.9 C H 129 H 20 92 04/03/19 11:12 36.9 C 110 H 18 127/72 95 04/03/19 07:09 37.0 C 133 H 20 136/74 91 04/03/19 05:45 122 H Resident Activity Tracking Resident Involvement: Resident Care Provided Care Provided: Adult [facility] Medicine
[2019-04-03] MEDS ORDERED: ENOXAPARIN INJ 40 MG/0.4 ML SYR SQ ONE (19:56)
[2019-04-03] MEDS: ENOXAPARIN INJ 40 MG/0.4 ML SYR SQ SCH (21:47)
[2019-04-04] MEDS: OXYCODONE/ACETAMINOPHEN 5mg/325mg TAB PO PRN ×2 (04:25→23:20)
[2019-04-04 06:08] LABS: Basophils # (auto) 0.01 K/uL (0-0.2); Basophils % (auto) 0.1 %; Eosinophils # (auto) 0.01 K/uL (0-0.5); Eosinophils % (auto) 0.1 %; Hematocrit (blood only) 34.3 % (42-52); Immature Granulocytes # (auto) 0.06 K/uL (0.00-0.02); Immature Granulocytes % (auto) 0.3 %; Lymphocytes # (auto) 1.02 K/uL (1.2-3.4); Lymphocytes % (auto) 5.3 %; Mean Corpuscular Hemoglobin 32.2 pg (25-34); Mean Platelet Volume 10.4 fL (7.4-10.4); Monocytes % (auto) 11.5 %; Neutrophils # (auto) 15.82 K/uL (1.4-6.5); Neutrophils % (auto) 82.7 %; Platelet Count 178 K/uL (130-400); RDW Coefficient of Variation 13.3 % (11.5-14.5); RDW Standard Deviation 44.9 fL (36.4-46.3); Red Blood Count 3.73 M/uL (4.7-6.1); White Blood Count 19.12 K/uL (4.8-10.8)
[2019-04-04] MEDS: ASPIRIN 81 MG ECTAB PO SCH (08:20)
[2019-04-04] MEDS: GABAPENTIN 100 MG CAP PO SCH ×3 (08:20→20:23)
[2019-04-04] MEDS: MULTIVITAMIN TAB PO SCH (08:20)
[2019-04-04] MEDS: NICOTINE 14 MG/24 HR PATCH TD SCH (08:20)
[2019-04-04] MEDS: METOPROLOL TARTRATE 25 MG TAB PO SCH ×2 (08:21→20:22)
[2019-04-04] MEDS: ATORVASTATIN 40 MG TAB PO SCH (08:21)
--- NOTE | 2019-04-04 11:59 | XRay Report ---
XR chest 1V portable CLINICAL HISTORY: elev. WBC dyspnea COMPARISON STUDY: 04/02/2019 FINDINGS: Minimal platelike atelectasis both lung bases. Diaphragms are smooth. No focal infiltrate. IMPRESSION: Minimal platelike atelectasis both lung bases. Otherwise negative study. ACT 112: Negative or not required by law. The above report was generated using voice recognition software. It may contain grammatical, syntax or spelling errors. Electronically signed by: Davie Velez M.D. 04/04/2019 11:57 AM
[2019-04-04] MEDS ORDERED: HALOPERIDOL LACTATE 5 MG/ML 1 ML VIAL IM PRN (14:11)
[2019-04-04 14:30] LABS: Appearance Urine Clear (Clear); Bacteria Urine Automated Negative (Negative); Blood Urine 3+ (Negative); Color Urine Dark Yellow; Glucose Urine UA Trace (Negative); Ketones Urine Trace (Negative); Leukocyte Esterase Urine Negative (Negative); Nitrite Urine Negative (Negative); Protein Urine 2+ (Negative); Specific Gravity Urine 1.028 (1.000-1.030); Urobilinogen Urine Negative (Negative)
[2019-04-04 14:32] LABS: Bilirubin Urine Negative (Negative); Ictotest Urine Negative (Negative)
--- NOTE | 2019-04-04 16:14 | Hospitalist Progress Note ---
Date of Service April 04, 2019 Assessment & Plan (1) Ischemia of left lower extremity: 68 y/o M w/ PVD, HTN, CVA, presented w/ ischemic left lower extremity found to have delusions and experiencing agitation while hospitalized, found to have elevated white cell count that continues to rise of unclear origin, CXR w/ atelectasis, UA not consistent with infection, and feet do not appear to be infected at this time. We will continue to monitor at this time for infection to declare itself or resolution if 2/2 post surgical inflammatory state. - longstanding, serve peripheral vascular disease - Aorta runoff CTA 03/30 showing bilateral common iliac artery aneurysms which measure up to 2.2 cm, as well as a small aortic aneurysm. The aneurysm to the left leg is totally occluded. The aneurysm to the right leg has a small channel with minimal flow. - vascular surgery performed femorofemoral bypass 04/01/19 - discontinued Clindamycin - continue atorvastatin 40mg, daily for plaque stabilization - continue ASA 81mg daily - Vascular surgery will follow up in 2-4 weeks - PT rec for rehab, patient resistant to this and would like to go home DVT: Lovenox 40 mg SQ Code: full code FENGI: regular diet, speech evaluation due to cough with feeding (2) Delusion: - Patient has pulled out multiple lines but overall improved no longer with a 1-1 - PRN Midazolam 2mg Q4H available - PRN Haldol 5 mg Q6H available - Psych consult placed, appreciate recs (3) Needle phobia: - patient periodically denying vascular access due to needle phobia - Ativan prn for necessary blood draws (4) COPD (chronic obstructive pulmonary disease): - active smoker with >50 ppy hx. - nicotine patch - CXR w/ findings of atelectasis - consider outpatient PFT's (5) Toxic encephalopathy: (6) Acute blood loss anemia: - 150 mL intraoperative blood loss - H& H slightly low at 12.0 and 34.3 - will continue to monitor with AM CBC (7) Tachycardia: - consistently tachycardic w/ HR 130's, considering fluid status, less likely infection given no other other overt signs, and afebrile; potentially could be associated to anxiety other potential cause is fluid retention, patient was blood pressure did return to 100's after urinating. - continue beta unique - will continue to monitor (8) Leukocytosis: - WBC 19.12 up from 17.83 up from 12.21 in the post op setting, possibly due to surgery but will trend to ensure that no infective process is driving the WBC, patient has been consistently tachycardic but this may be unrelated. He has a CXR 04/04 w/ signs of atelectasis, UA that does not appear to show infection. - will follow up w/ AM CBC Supervising Physician Co-Signing Physician Notes I saw the patient this morning with the resident physician and confirmed celsi portions of the history and exam. I agree with the above impression and plan. Subjective Patient is supine in bed; no complaints. Denies cough; denies urinary urgency or frequency. Objective Upon exam, heart is regular but slightly tachycardic; he remains afebrile Lungs are clear throughout Abdomen soft nontender Extremities without erythema or warmth Data White blood cell count 19.12 Severe peripheral vascular disease, status post femoral-femoral bypass 04/01/2019 Deconditioning Recommend inpatient physical therapy Tachycardia Continue beta unique Leukocytosis No obvious sign of infection Chest x-ray Urine culture Repeat CBC in a.m. Subjective Doing well today. We discussed the recommendation that he go to inpatient PT, he is resistant to this and wants to go home to watch the super bowl in his chair at home. Review of Systems Constitutional: no fever and no chills Respiratory: no cough and no sputum production Cardiovascular: no chest pain and no palpitations Gastrointestinal: no abdominal pain, no nausea and no vomiting Genitourinary: no dysuria, no difficulty urinating and no urinary frequency Neurologic: no headache(s) Physical Exam Constitutional: WD/WN, vitals as above Eyes: PERRL, conjunctivae normal, anicteric sclerae ENMT: external ear and nose normal, oropharynx normal Neck: trachea midline, no thyromegaly Respiratory: normal respiratory effort, lungs clear to auscultation Cardiovascular: RRR, no murmur, no edema Gastrointestinal (Abdomen): normal bowel sounds, soft, nontender, no hepatosplenomegaly Skin: Left foot slightly warm but not tender to palpation Psychiatric: Affect: + anxious affect Results & Data ([facility]) Vital Signs (Past 12 Hours) Vital Signs Temp Pulse Pulse Pulse Resp BP BP 04/04/19 15:43 36.9 C 111 H 18 117/71 04/04/19 15:39 109 H 04/04/19 11:11 36.8 C 107 H 18 101/66 04/04/19 07:27 37.1 C 127 H 20 102/70 Pulse Ox 04/04/19 15:43 94 04/04/19 15:39 04/04/19 11:11 96 04/04/19 07:27 96 Resident Activity Tracking Resident Involvement: Resident Care Provided Care Provided: Adult Hospital Medicine
[2019-04-04] MEDS: ENOXAPARIN INJ 40 MG/0.4 ML SYR SQ SCH (20:24)
[2019-04-05 06:26] LABS: Basophils # (auto) 0.02 K/uL (0-0.2); Basophils % (auto) 0.1 %; Eosinophils % (auto) 0.6 %; Hematocrit (blood only) 33.7 % (42-52); Hemoglobin 11.9 g/dL (14.0-18.0); Immature Granulocytes # (auto) 0.07 K/uL (0.00-0.02); Immature Granulocytes % (auto) 0.4 %; Lymphocytes # (auto) 1.66 K/uL (1.2-3.4); Lymphocytes % (auto) 9.4 %; Mean Corpuscular Hemoglobin 32.4 pg (25-34); Mean Corpuscular Hgb Conc 35.3 g/dL (32-36); Mean Corpuscular Volume 91.8 fL (80-100); Mean Platelet Volume 10.3 fL (7.4-10.4); Monocytes # (auto) 2.31 K/uL (0.11-0.59); Monocytes % (auto) 13.1 %; Neutrophils # (auto) 13.49 K/uL (1.4-6.5); Neutrophils % (auto) 76.4 %; Platelet Count 217 K/uL (130-400); RDW Coefficient of Variation 13.3 % (11.5-14.5); RDW Standard Deviation 44.1 fL (36.4-46.3); Red Blood Count 3.67 M/uL (4.7-6.1); White Blood Count 17.65 K/uL (4.8-10.8)
[2019-04-05 06:58] LABS: BUN Creatinine Ratio 30.3 (10-20); Calcium 8.5 mg/dl (8.5-10.1); Creatinine Clr Calc Pharmacy 58.3 ml/min; Est GFR (African American) 75.1; Est GFR (Non-African American) 64.8; Potassium 3.6 mmol/L (3.5-5.1)
[2019-04-05] MEDS: ASPIRIN 81 MG ECTAB PO SCH (07:58)
[2019-04-05] MEDS: ATORVASTATIN 40 MG TAB PO SCH (07:59)
[2019-04-05] MEDS: GABAPENTIN 100 MG CAP PO SCH ×2 (07:59→14:02)
[2019-04-05] MEDS: METOPROLOL TARTRATE 25 MG TAB PO SCH (07:59)
[2019-04-05] MEDS: MULTIVITAMIN TAB PO SCH (07:59)
[2019-04-05] MEDS ORDERED: NICOTINE 14 MG/24 HR PATCH TD SCH (09:00)
[2019-04-05] MEDS ORDERED: NICOTINE 21 MG/24 HR TDSY TD SCH (09:00)
[2019-04-05] MEDS ORDERED: METOPROLOL SUCC 25MG EXT REL TAB PO STA (10:31)
--- NOTE | 2019-04-05 11:27 | Surgery Progress Note ---
Date of Service April 05, 2019 Assessment & Plan (1) Ischemia of left lower extremity: PT POD #4 after EVAR and R to L fem fem BPG. Pt doing well, good doppler BLE. Leukocytosis is expected after EVAR and appears to have peaked and is now declining. Tachycardia has been chronic and is unrelated to surgery. OK for d/c home from vascular standpoint. Will see in office in 2-4 weeks. Please call if needed. Subjective 68 yo M POD #4 after EVAR and R to L fem fem BPG, seen in f/u today. Pt states he is doing well and wants to go home. Pt denies abd pain or leg pain. States incisions are a little sore. Denies any other complaints. Review of Systems Review of Systems: All systems reviewed & are unremarkable except as noted in HPI & below Physical Exam Constitutional: WD/WN, vitals as above healthy appearing; not ill appearing and not in distress Cardiovascular: Vessels: femoral pulses present, posterior tibial pulses present and dorsalis pedis pulses present; + abnormal peripheral pulses Extremities: normal capillary refill Gastrointestinal (Abdomen): normal bowel sounds, soft, nontender, no hepatosplenomegaly Skin: + incision (BL groins intact, +ecchymosis, soft edema. No erythema.) Psychiatric: A+Ox3, euthymic affect Mood: + irritable mood (sleeping but easily rouseable. ) Results & Data Vital Signs (Past 12 Hours) Vital Signs Temp Pulse Pulse Resp BP Pulse Ox 04/05/19 11:16 36.7 C 105 H 18 129/78 93 04/05/19 07:36 37.0 C 65 18 136/77 95 04/05/19 07:00 110 H 04/05/19 06:02 110 H 04/04/19 23:35 37.0 C 99 H 18 126/71 95
[2019-04-05] MEDS ORDERED: LORazepam 0.5 MG/1 ML VIAL IV STA (13:22)
--- NOTE | 2019-04-05 19:50 | Discharge Summary ---
Date of Service April 05, 2019 Admission HPI Per Admitting Provider Yasmany James is a 68-year-old male admitted medically on 03/29/2019 after presenting to the ED with complaints of worsening left foot pain. Ischemic changes to his left leg were noted, and patient has received a vascular surgery consultation. Present plan is for operative procedure on 04/01/2019 to target these changes. Psychiatric consultation was reportedly requested as patient has been verbalizing thoughts to harm specific individuals living at his apartment complex, verbalizing the belief they are using religious against him. Patient was too sedated yesterday to gather meaningful history, and is reassessed today for psychiatric evaluation. Patient is cooperative with conversation, but admits he is "not too good." Patient states that he continues to have significant left foot pain, but informs this provider he is scheduled for an operation tomorrow. Patient states he is prepared for this operation, and is hopeful that it is beneficial for him. It is not long in our conversation before patient begins to talk about how "[email or web address] screwed me, the maintenance guys I mean. They did all this to me." Patient goes on to verbalize a belief that the maintenance men at his apartment complex (some of whom actually lived in [place]) have been practicing religious and directly inflicted the issues he is experiencing with his left foot. Patient states "believe it or not, what is going on has something to do with religious." He states, "at first I thought they should watch their backs, but now I plan to april them for many, many millions of dollars." This provider gently attempted to challenge his thoughts, asking if there was any other explanation for the changes he is experiencing in his physical presentation. Patient responds by stating "I am positive that they are doing this to me." Patient states that he has been to the reflow operator "at least 4 times", and that they have not been able to offer him a solution to his current concerns. Patient believes that the pipe line maintenance supervisor are attempting to get him to move out of his apartment. He states that this religious magic has been occurring for at least 4 to 5 months, and that they are able to target him from anywhere. He states he i s yet to experience the religious here in the hospital, but would not be surprised if this were to happen. Patient was specifically asked about homicidal ideation towards these individuals, to which he states "I would not say I did not think about it, but was good does not do me. I would just end up in long term." Patient states that he has 2 specific supports also living at the apartment complex who could corroborate his story. Patient denies history of psychiatric diagnoses. He denies history of inpatient psychiatric hospitalizations or previous suicide or homicide attempts. He denies significant changes in his mood or level of anxiety over the past several months. He does admit that his sleep and appetite have been affected and are "not good at all." The patient states that he has become preoccupied with the religious the pipe line maintenance supervisor are performing, that he feels as though he cannot eat or sleep. Patient was unable to quantify his usual sleep schedule. He is agreeable, should it be indicated, with medication to keep him comfortable during his hospitalization. Other than this, patient denies specific needs or concerns from our service at this time. Admission Exam Per Admitting Provider Constitutional: WD/WN, vitals as above well developed and + obese Eyes: PERRL, conjunctivae normal, anicteric sclerae ENMT: external ear and nose normal, oropharynx normal Neck: trachea midline, no thyromegaly Respiratory: normal respiratory effort, lungs clear to auscultation Cardiovascular: Heart Sounds: normal S1 and normal S2 Palpation: + palpable S3 Not palpable pulses of the dorsalis pedis left lower extremities. The foot is still warm to touch. There are several areas covered with eschars specifically first big toe. Gastrointestinal (Abdomen): normal bowel sounds, soft, nontender, no hepatosplenomegaly Musculoskeletal: no cyanosis or clubbing, extremities motor strength 5/5 Skin: no rashes, warm and dry Neurologic: patellar DTR's 2+ bilat, sensation intact Psychiatric: Mood: + angry mood Insight: + limited insight Lymphatic: no cervical or axillary lymphadenopathy Principal Diagnosis Ischemic left lower extremity Delusions Needle phobia COPD Toxic encephalopathy Tachycardia leukocytosis Discharge Exam Constitutional WD/WN, vitals as above Eyes PERRL, conjunctivae normal, anicteric sclerae ENMT external ear and nose normal, oropharynx normal Neck trachea midline, no thyromegaly Respiratory normal respiratory effort, lungs clear to auscultation Cardiovascular RRR, no murmur, no edema Gastrointestinal (Abdomen) normal bowel sounds, soft, nontender, no hepatosplenomegaly Psychiatric Affect: + anxious affect Discharge Data Allergies Allergy/AdvReac Type Severity Reaction Status Date / Time No Known Allergies Allergy Unverified 03/29/19 13:15 Consultations 03/29/19 16:50 ED Decision to Admit Stat 03/29/19 20:32 Consult Case Management - Discharge Planning Routine 03/29/19 21:52 Consult Vascular Surgery Routine 03/30/19 05:52 Consult Psychiatry Routine 04/01/19 16:38 Consult Retail Sales Merchandiser Development Routine 04/02/19 08:00 Consult Case Management - Discharge Planning Routine Procedures Performed Operation Date: 04/01/19 12:10 Actual Procedures s Endovascular Aneurysm Repair, Right Iliac Artery Extension - Rickie Patel MD p Open Femoral to Femoral Graft - Rickie Patel MD Ordered Studies 03/29/19 12:48 CT angio LE LT w inc wo if don Stat 03/30/19 10:36 CT angio abd aorta runof w con Routine 04/01/19 07:18 EV angio LE BI Routine Hospital Course (1) Ischemia of left lower extremity: 68 y/o M w/ PVD, HTN, CVA, presented w/ ischemic left lower extremity found to have delusions and experiencing agitation while hospitalized, found to have elevated white cell count that was likely a post operative reactive leukocytosis. Also noted to be tachycardic over hospitalization. On day of discharge he was found to have a low Na but was unwilling to have a repeat value drawn. - longstanding, serve peripheral vascular disease - Aorta runoff CTA 03/30 showing bilateral common iliac artery aneurysms which measure up to 2.2 cm, as well as a small aortic aneurysm. The aneurysm to the left leg is totally occluded. The aneurysm to the right leg has a small channel with minimal flow. - vascular surgery performed femorofemoral bypass 04/01/19 - continue atorvastatin 40mg, daily for plaque stabilization - continue ASA 81mg daily - Vascular surgery will follow up in 2-4 weeks - PT rec for rehab, patient refused this and was set up with home health - was given 5 Percocet for post operative pain - will have a walker delivered to his home - recommend close follow up with PCP on Monday or Monday of next week - follow up BMP to evaluate Hyponatremia, CBC to evaluate downtrending leukocytosis (2) Delusion: - Patient was at times aggressive with staff and had pulled out multiple lines but overall improved during hospitalization - Psych consult: Pt denies SI/HI, stating he does not wish to harm individuals, denies safety concerns surrounding returning to his apartment. No acute indication for psychiatric hospitalization. (3) Needle phobia: - patient periodically denying vascular access due to needle phobia, ativan was made available to - Ativan prn for necessary blood draws (4) COPD (chronic obstructive pulmonary disease): - active smoker with >50 ppy hx. - nicotine patch while - CXR w/ findings of atelectasis - consider outpatient PFT's (5) Toxic encephalopathy: (6) Acute blood loss anemia: - 150 mL intraoperative blood loss - H& H slightly low but stable with discharge H&H 11.9 and 33.7 (7) Tachycardia: - consistently tachycardic w/ HR up to 130's, considering fluid status, less likely infection given no other other overt signs, and afebrile; potentially could be associated to anxiety. - continued beta unique while inpatient and sent home on home dose. (8) Leukocytosis: - WBC downtrending on day of discharge from 19 to 17 in the post op setting, likely due to surgery. He has a CXR 04/04 w/ signs of atelectasis, UA that does not appear to show infection. Total Time Total Time Spent Total Time Spent (In Minutes): Discharge Plan Discharge Items Patient Disposition: Home - Home Health Services Reason For Visit: LLE PAIN,NO PULSE Discharge Diagnosis: PVD COPD Tachycardia HTN Activity: Per Instructions section Non-emergency contact: Primary Care Provider Call non-emergency contact if: your symptoms worsen, your pain is not controlled and your temperature is above 101 Follow-up/Referrals: Wen Madera PA-C [Outside Practitioners] - (Please, follow up at [facility] w/ Wen Madera PA-C. * A nurse from this office is supposed to call you with appointment information. If you have any questions, call the clinic at [phone].) Diet: Regular Addtl Attending Provider Instructions: You were admitted to the hospital for lack of blood flow to your leg. You have a long history of decreased blood flow to your legs. We did an imaging test to evaluate the flow of blood in you legs and feet and found that there was narrowing of the right leg vessels and that your left leg vessels were blocked. you were taken to the OR and a procedure was performed to ensure blood flow to your legs. During your hospitalization you did experience agitation and we gave you medication for this. We also had someone sit with you to ensure that you did not pull out your IV's. You improved over the hospitalization. Over your hospitalization it was found that your heart rate was elevated above a normal level. You had mentioned that this is common for you, we did a test to look at the electrical activity of your heart and other than beating fast there were no other abnormalities noted. It will be important for you to follow up in the next week with your primary care doctor to discuss the hospitalization. If you experience any fevers above 101, feeling dizzy of like you faint we will want you to call or come in to be evaluated at a clinic or the hospital. Also, if you are having continued pain the the left leg that is not improved with pain medication, if you notice that your foot has any drainage, or it gets red, hot or starts to swell call come in or get evaluated at either a clinic or the ER. You will need to have an appointment with your primary doctor on Monday or Monday of next week. You will have labs at this time to follow up on your low sodium. Pending Studies at Discharge: Yes Studies:: blood cultures negative at 48 hours Stand-Alone Forms: [facility], Smoking Cessation Medications and DC Order Prescriptions: New oxycodone-acetaminophen [Percocet] 5-325 mg tablet 1 tab PO .qhs Qty: 5 RF: 0 Continued multivitamin Tablet 1 tab PO QAM Qty: 0 RF: 0 metoprolol succinate 50 mg Tablet Extended Release 24 Hr 0 mg PO QAM RF: 0 gabapentin 100 mg capsule 100 mg PO TID Qty: 30 RF: 0 aspirin 81 mg Tablet,Delayed Release (Dr/Ec) 81 mg PO QAM RF: 0 acetaminophen [Tylenol Extra Strength] 500 mg Tablet 500 mg PO Q6H PRN (Reason: Pain) RF: 0 Discharge Orders: Discharge Order (Routine); Ordered 04/05/19 Ordered By: Chadd Glynn/Other Patient Handouts: Diabetes Type 2 Coping, Disease Peripheral Artery, Quit Smoking Plan, Quit Smoking Get Support, Smoke Free Benefits, Smoking and PAD, A1C Admission Data Admit Date/Time: 03/29/19 18:16 Attending Provider: Eyal Deng Admit Provider: Elmo Ortiz Primary Care Provider: PCP,NO Other Providers: Elmo Ortiz ; Rickie Patel ; Lakisha Khan ; Jono Foote ; Brodie Vera ; Alexander De La Torre ; Gerry Rodriguez ; Dashawn Haile ; Donavan Buckner ; Prasanna Ann ; [facility] Other Interventions: Discharge Summary Assessment (RN) Last Done: 04/05/19 14:05 DC Date/Time DO NOT enter until pt leaves facility: 04/05/19 15:18 Resident Activity Tracking Resident Involvement: Resident Care Provided Care Provided: Adult Hospital Medicine
== END 2019-04-05 15:18 | disposition home health service (06) | DRG 252 ==
LOC: ED 11:47 → 2S 18:16 → SUATTDRO 18:16 → 2S 19:37 → 1E 04-01 15:21 → 2W 04-02 16:21
PROC: EV.EVAR (2019-04-01 12:10)

== ENCOUNTER 2019-11-12 07:24 | Inpatient (IN) ==
--- NOTE | 2019-11-07 15:36 | PAT Medication Instructions ---
Medication Instructions Date of Service November 07, 2019 Home Medications gabapentin 300 mg PO QAM lisinopril 10 mg PO QAM rosuvastatin 5 mg PO QAM vit C-vit V-uopjwc-lzvx-lutein [PreserVision Lutein] 1 cap PO QAM apixaban [Eliquis] 5 mg PO QAM metformin 500 mg PO BID ASK your prescriber and surgeon apixaban [Eliquis] 5 mg PO QAM STOP taking 2 weeks before surgery (or as soon as possible if surgery is within 2 weeks) vit C-vit W-aefwvz-dcqm-lutein [PreserVision Lutein] 1 cap PO QAM DO NOT take the morning of surgery lisinopril 10 mg PO QAM metformin 500 mg PO BID Take morning of surgery With a small sip of water, OTHERWISE NOTHING TO EAT OR DRINK AFTER MIDNIGHT: gabapentin 300 mg PO QAM rosuvastatin 5 mg PO QAM Take evening before surgery metformin 500 mg PO BID Other Notes If you have any questions please call us at [phone] or [phone] or [phone] or [phone]
--- NOTE | 2019-11-08 12:05 | Anesthesiology Consultation ---
Date of Service November 08, 2019 Assessment & Plan (1) Encounter for pre-operative examination: Chart Review Chart Review: Acceptable Risk for Surgery (pending DOS testing and results of preop Covid testing ) and Patient seen in Pre Admission Testing Pt was transported to ER from [facility] appt due to left LE discoloration and severe pain. Preop testing was not done in [facility]- Dr. Patel's preop order given to ER medical assistant secretary with request to get done with ER testing. Pt was discharged from ER on Percocet- no testing was done. Will order CBC with diff, PRP, PT/INR/PTT, EKG and CXR stat AM of surgery (surgeon's office was informed). Check BSG AM DOS Per [facility] appt on 11/08/19, no recent travel. Resides in [facility]. Uses PPE. No known Covid positive contacts or Covid related symptoms. Pt had preop Covid testing done 11/07/19= results pending. Results need confirmed DOS or rule vs rapid Pride test will need used DOS- will leave to anesthesiologist discretion DOS. Teaching & Discussion Pre-Anesthesia Teaching/Discussion Notes: Instructed NPO after midnight before surgery,except medications with 15 cc of water. Medication instructions provided according to the [facility] guidelines. History Surgery Operation Date: 11/12/19 09:30 Proposed Procedures p Redo Left Femoral/Femoral Bypass - Rickie Patel MD s Left Leg Angioplsaty with Possible Intervention - Rickie Patel MD Height/Weight Height: 5 ft 8 in Weight: 90.718 kg Allergies Allergy/AdvReac Type Severity Reaction Status Date / Time No Known Allergies Allergy Unverified 11/07/19 12:08 Medications Home Medications Medication Instructions Recorded Confirmed Last Taken gabapentin 300 mg PO QAM 09/27/19 11/07/19 09/26/19 lisinopril 10 mg PO QAM 09/27/19 11/07/19 09/26/19 rosuvastatin 5 mg PO QAM 09/27/19 11/07/19 09/26/19 vit C-vit M-wvmhah-qsuu-lutein 1 cap PO QAM 09/27/19 11/07/19 09/26/19 [PreserVision Lutein] apixaban [Eliquis] 5 mg PO QAM 10/17/19 11/07/19 Unknown metformin 500 mg PO BID 10/17/19 11/07/19 Unknown Past Medical History Medical History CVA (cerebral infarction) 2016 - NO RESIDUAL EFFECTS AND TAKES ELIQUIS Diabetes On Metformin HTN (hypertension) Hyperlipidemia Peripheral vascular disease Exercise / Class Metabolic Activity III < 4 Walking/Shop/Light housework (no chest pain or SOB with short distance short distance ambulation- recent significant LE pain with ambulation ) Past Family History Family History Other Family history non-contributory Past Surgical History Surgical History Hx of colonoscopy S/P femoral-femoral bypass surgery LEFT Past Anesthesia History No Hx of Anesthesia Complications and No Family Hx of Anesthesia Complications History of PONV No Hx of PONV and No Hx of Motion Sickness Social History Smoking Status: Current every day smoker tobacco type: cigarettes Smoking cigarettes per day: A FEW A DAY Do You Dip or Chew Tobacco: No Hx Alcohol Use: No Hx Substance Use: No substance use type: does not use Review of Systems Patient denies chest pain, shortness of breath, dyspnea on exertion, reflux, cough, wheezing, palpitations. No hx of seizures, stroke, [place], apnea/snoring. No hx of blood clots or blood transfusions Physical Exam Vital Signs VITALS BP 108/65 P 109 TEMP 98.0 SP02 94% RESP 20 Constitutional appears in pain ENMT Mouth: no TMJ clicking Thyromental Distance: > or= 3.5 Finger Breadths (3.5) Mallampati Class: III Missing most of his teeth Neck + limited neck extension Respiratory normal respiratory effort; no respiratory distress Auscultation: lungs clear to auscultation bilaterally and + diminished lung sounds (throughout ); no wheezes Cardiovascular Rate/Rhythm: regular rhythm and + tachycardic (mildly ) Heart Sounds: no murmur Vessels: no carotid bruit Musculoskeletal Spine: + pain with cervical ROM Neurologic Varicose veins noted to bilateral LEs. Left LE red compared to right LE. No swelling noted. Light touch to calf caused significant pain Psychiatric Orientation: alert Testing Laboratory Results 10/30/19= WBC: 7.12 H/H: 15.3/44.2 PLATELETS: 244 SODIUM: 140 POTASSIUM: 3.6 CHLORIDE: 109 CO2: 25 BUN: 20 CREATININE: 1.15 GLUCOSE: 206 PT: 10.9 PTT: 23.6 INR: 1.0 Electrocardiogram Date: 10/30/19 Sinus tachycardia with first-degree AV block at 112 bpm. Low voltage QRS. Cannot rule out old inferior infarct. Chest X-Ray Date: 04/04/19 Minimal platelike atelectasis both lung bases. Otherwise negative study. Echocardiogram Date: 03/30/19 LV Function: normal (Low normal) Other Findings: + LVH (Borderline/concentric) Regional wall motion abnormalities cannot be excluded due to limited visualization. Some views are suggestive of moderate anterior apical hypokinesis. Aortic valve sclerosis mild, without significant aortic valvular stenosis. Borderline aortic root dilation.
[~2019-11-12 07:24] MED LIST: BUPIVACAINE 0.5 % 5 MG/1 ML MPF 30ML VIAL ONE; CEFAZOLIN 2000MG 2,000 MG/15 ML SYR IV SCH; CEFAZOLIN 250 MG/ML 1 GM VIAL ONE; EPINEPHrine INJ 1 MG/ML AMP ONE; GELATIN SPONGE SZ 100 ONE; HEPARIN (PORCINE) 1000 UNIT/ML 10 ML (CATH LAB USE ONLY) ONE; IODIXANOL (VISIPAQUE) 270 MG/ML 150ML ONE; LACTATED RINGER'S 1,000 ML IV SCH; LIDOCAINE 2% JELLY 5 ML TUBE ONE; LIDOCAINE HCL 1% 20 ML VIAL ONE; PAPAVERINE HCL INJ 30 MG/ML 2 ML VIAL ONE; THROMBIN 5000 UNITS KIT ONE
[2019-11-12] MEDS ORDERED: fentaNYL citrate 100 MCG/2 ML VIAL ONE ×3 (08:15→12:41)
--- NOTE | 2019-11-12 08:15 | XRay Report ---
TWO VIEW CHEST CLINICAL HISTORY: Preoperative examination. FINDINGS: PA and lateral chest radiographs are compared to study dated 04/04/2019. The cardiomediastin al silhouette is unremarkable noting atherosclerotic calcification of the thoracic aorta. Emphysema a nd chronic interstitial thickening is similar to previous. There is no airspace consolidation or pleu ral effusion. Scarring/atelectasis is noted in the lung bases. There is no pneumothorax. The skeletal structures are osteopenic. The bony thorax appears intact. A stent graft is partially visualized in the upper abdomen. IMPRESSION: No active disease in the chest. ACT 112: Negative or not required by law. Electronically signed by: Jono Blackman M.D. 11/12/2019 8:14 AM
[2019-11-12 08:44] LABS: Basophils # (auto) 0.01 K/uL (0-0.2); Basophils % (auto) 0.1 %; Eosinophils # (auto) 0.23 K/uL (0-0.5); Eosinophils % (auto) 3.1 %; Hematocrit (blood only) 44.2 % (42-52); Hemoglobin 15.5 g/dL (14.0-18.0); Immature Granulocytes # (auto) 0.02 K/uL (0.00-0.02); Immature Granulocytes % (auto) 0.3 %; Lymphocytes # (auto) 1.58 K/uL (1.2-3.4); Mean Corpuscular Hemoglobin 33.3 pg (25-34); Mean Corpuscular Volume 95.1 fL (80-100); Monocytes # (auto) 0.64 K/uL (0.11-0.59); Monocytes % (auto) 8.5 %; Neutrophils # (auto) 5.03 K/uL (1.4-6.5); Platelet Count 217 K/uL (130-400); RDW Coefficient of Variation 13.3 % (11.5-14.5); RDW Standard Deviation 45.7 fL (36.4-46.3); Red Blood Count 4.65 M/uL (4.7-6.1); White Blood Count 7.51 K/uL (4.8-10.8)
--- NOTE | 2019-11-12 08:50 | History & Physical Report ---
Date of Service November 12, 2019 Assessment & Plan (1) Ischemic leg pain: Patient to have a possible redo fem fem bypass and a left fem pop bypass. I have discussed the risks options and benefits of the procedure with the patient. The patient understands the risks options and benefits and agrees to the procedure. History of Present Illness Chief Complaint: Ischemic left lower extremity, occluded fem fem bypass Primary Care Provider: NO PCP I the pleasure of seeing Yasmany today for follow-up. As you know he is a 69-year-old male who in March had a repair of an aortic aneurysm and a femorofemoral bypass for left leg ischemia. He did well until recently where he developed severe pain in the left lower extremity. Ultrasound at that time showed occlusion of his femorofemoral bypass and decreased flow to the left leg. He is canceled a few appointments since then but has been seen in the ER for his pain. He finally went for his CT scan which confirmed the occluded graft and superficial femoral artery occlusions. At this point he still believes in the moravian which is affecting his left leg. But overall he does appear oriented and understands the need for surgical intervention. Allergies Allergy/AdvReac Type Severity Reaction Status Date / Time No Known Allergies Allergy Unverified 11/12/19 08:17 Home Medications Home Medications Medication Instructions Recorded Confirmed Type gabapentin 300 mg PO QAM 09/27/19 11/12/19 History lisinopril 10 mg PO QAM 09/27/19 11/12/19 History rosuvastatin 5 mg PO QAM 09/27/19 11/12/19 History vit C-vit V-qzzhjj-avos-lutein 1 cap PO QAM 09/27/19 11/12/19 History [PreserVision Lutein] apixaban [Eliquis] 5 mg PO QAM 10/17/19 11/12/19 History metformin 500 mg PO BID 10/17/19 11/12/19 History Past Med/Surg History Medical History CVA (cerebral infarction) 2015 - NO RESIDUAL EFFECTS AND TAKES ELIQUIS Diabetes On Metformin HTN (hypertension) Hyperlipidemia Peripheral vascular disease Surgical History Hx of colonoscopy S/P femoral-femoral bypass surgery LEFT Family History Other Family history non-contributory Social History Smoking Status: Current every day smoker Tobacco Type: Cigarettes Cigarettes Per Day: A FEW A DAY; Second Hand Exposure: No; Do You Dip or Chew Tobacco: No; Tobacco Cessation Education Requested by Patient: No Hx Alcohol Use: No Hx Substance Use: No Preferred Language: Mongolian Communication Ability: Effective Supervisor Force Adjustment Required: No Beliefs That Will Affect Care: None marital status: Single Current Living Situation: Alone Other Information That Helps Us Care for You: No Feels Safe at Home: Yes Safety Concerns: Feels Safe At This Time Review of Systems All systems reviewed & are unremarkable except as noted in HPI & below Physical Exam Physical Exam: He has no noted carotid bruits. His heart is tachycardic with no noted murmurs. He is clear to auscultation bilaterally. His abdomen is soft, nontender, nondistended. He has a right femoral pulse and a scar in his left groin from his previous fem-fem operation. In his right lower extremity he has dopplerable signals in the PT and DP distributions. In his left lower extremity, no signals are appreciated. His toes are slightly discolored and the leg is somewhat cool to the touch with slow capillary refill. He has no noted wounds or injuries that are not healing. He does not appear to have any sensory or motor loss in his left lower extremity. Results & Data ([facility]) Vital Signs (Past 12 Hours) Vital Signs Temp Pulse Resp BP Pulse Ox 11/12/19 08:28 36.6 C 110 H 18 152/91 H 97
[2019-11-12 08:55] LABS: Partial Thromboplastin Ratio 0.9; Partial Thromboplastin Time 24.2 Seconds (21.0-31.0); Prothrombin Time 10.9 Seconds (9.0-12.0)
[2019-11-12 09:10] LABS: BUN Creatinine Ratio 13.5 (10-20); Calcium 9.2 mg/dl (8.5-10.1); Creatinine Clr Calc Pharmacy 79.7 ml/min; Est GFR (African American) 99.2; Est GFR (Non-African American) 85.6; Potassium 3.7 mmol/L (3.5-5.1)
[2019-11-12 09:45] LABS: Mean Corpuscular Hgb Conc 35.1 g/dL (32-36)
[2019-11-12] MEDS ORDERED: THROMBIN FOR SOLN 20000 UNIT KIT ONE (09:45)
[2019-11-12] MEDS ORDERED: HEPARIN SOD (PORCINE) 1000 UNIT/ML 10 ML VIAL ONE ×2 (10:24→11:51)
[2019-11-12] MEDS ORDERED: SUCCINYLCHOLINE CHLORIDE 20 MG/ML 10 ML VIAL IV ONE (10:24)
[2019-11-12] MEDS ORDERED: ESMOLOL HCL INJ 10 MG/ML 10ML VIAL IV ONE (10:24)
[2019-11-12] MEDS ORDERED: PROPOFOL IV EMULSION 10 MG/ML 20 ML VIAL IV ONE ×2 (10:24→13:41)
[2019-11-12] MEDS ORDERED: LIDOCAINE HCL 2% 2 ML VIAL/AMP(20MG/ML) INFIL ONE (10:24)
[2019-11-12] MEDS ORDERED: ROCURONIUM BROMIDE 10 MG/ML 5 ML VIAL IV ONE (10:24)
[2019-11-12] MEDS ORDERED: METOPROLOL TARTRATE 1 MG/ML VIAL IV ONE (13:02)
[2019-11-12] MEDS ORDERED: HYDROmorphone INJ 2 MG/ML SYR/VIAL ONE (13:25)
[2019-11-12] MEDS ORDERED: PROTAMINE SULFATE 10 MG/ML 5 ML VIAL ONE (13:26)
--- NOTE | 2019-11-12 14:04 | Post Operative Brief Note ---
Immediate Post Op Note v1 Date of Surgery November 12, 2019 Pre & Post Diagnosis Operation Date: 11/12/19 09:30 Pre-Op Diagnosis: Ischemic Left Leg Post-Op Diagnosis: Ischemic Left Leg I identified the patient and participated in the time-out.: Yes Procedure Operation Date: 11/12/19 09:30 Actual Procedures p Thrombectomy of Femoral Femoral Bypass, Bovine Patch Angioplasty, Proximal and Distal Anastomis of Femoral to Femoral Bypass, Left Leg Femoral to Popliteal Insitu Bypass(Left) - Rickie Patel MD s Left Leg Angioplasty, (Left) - Rickie Patel MD Surgeon Rickie Patel MD Atomizer Assembler Andressa,PAC Estimated Blood Loss 150 Findings Consistent with Post-Op Diagnosis Drains Rodriguez Catheter Anesthesia Type General Complications none Disposition Accompanied Patient To Recovery: No Disposition: Recovery Room
[2019-11-12] MEDS ORDERED: ONDANSETRON INJ 2 MG/ML 2 ML VIAL IV PRN ×2 (14:10→17:09)
[2019-11-12] MEDS ORDERED: FLUMAZENIL 0.1 MG/1 ML 10 ML VIAL IV PRN (14:10)
[2019-11-12] MEDS ORDERED: HYDROmorphone INJ 1 MG/ML SYRINGE IV PRN (14:10)
[2019-11-12] MEDS ORDERED: fentaNYL citrate 100 MCG/2 ML VIAL IV PRN (14:10)
[2019-11-12] MEDS ORDERED: ePHEDrine sulfate 50 MG/ML AMP IV PRN (14:10)
[2019-11-12] MEDS ORDERED: ATROPINE SULFATE 0.1 MG/ML 10ML SYR IV PRN (14:10)
[2019-11-12] MEDS ORDERED: NALOXONE HCL 0.4 MG/1 ML VIAL/CARP IV PRN (14:10)
[2019-11-12] MEDS ORDERED: LABETALOL HCL IV 5 MG/ML 20ML IV PRN (14:10)
[2019-11-12] MEDS ORDERED: PROMETHAZINE HCL 12.5 MG in SODIUM CHLORIDE 0.9% 50 ML IV PRN (14:10)
[2019-11-12] MEDS ORDERED: ALBUTEROL HFA INHALER 8.5 GM ONE (14:42)
[2019-11-12] MEDS ORDERED: ACETAMINOPHEN 1000 MG/100 ML IV IV ONE (15:12)
[2019-11-12] MEDS ORDERED: ACETAMINOPHEN 1,000 MG/100 ML VIAL IV STA (15:16)
[2019-11-12 15:17] LABS: Hematocrit (blood only) 36.4 % (42-52); Hemoglobin 12.5 g/dL (14.0-18.0)
--- NOTE | 2019-11-12 15:34 | Anesthesiology Progress Note ---
Date of Service November 12, 2019 Anesthesia Post Procedure Vital Signs Vital Signs: Temp Pulse Pulse Resp BP Pulse Ox 11/12/19 15:20 103 H 16 96/66 L 95 11/12/19 15:10 106 H 14 101/72 94 11/12/19 15:00 110 H 14 98/64 L 94 11/12/19 14:50 110 H 17 96/66 L 93 11/12/19 14:40 115 H 16 102/74 92 11/12/19 14:31 97.7 F 107 H 16 122/63 93 11/12/19 08:28 97.9 F 110 H 18 152/91 H 97 Pain Intensity Left Leg: Pain Intensity: 7 Transfer of Care Handoff Completed per policy Notes Mental Status: alert / awake / arousable and participated in evaluation Patient Amnestic to Procedure: Yes Nausea / Vomiting: adequately controlled Pain: adequately controlled Airway Patency, RR, SpO2: stable & adequate BP & HR: stable & adequate Hydration State: stable & adequate Anesthetic Complications: no major complications apparent and Pt Satisfied with anesthetic care
--- NOTE | 2019-11-12 16:26 | Anesthesiology Progress Note ---
Date of Service November 12, 2019 Anesthesia Post Procedure Vital Signs Vital Signs: Temp Pulse Pulse Resp BP BP Pulse Ox 11/12/19 16:10 104 H 18 107/43 L 96/57 L 96 11/12/19 16:00 97 H 14 98/43 L 99/58 L 96 11/12/19 15:50 36.5 C 102 H 16 101/47 L 89/52 L 94 11/12/19 15:40 102 H 15 85/58 L 95/46 L 95 11/12/19 15:30 99 H 14 91/60 L 91/57 L 95 11/12/19 15:20 103 H 16 96/66 L 95 11/12/19 15:10 106 H 14 101/72 94 11/12/19 15:00 110 H 14 98/64 L 94 11/12/19 14:50 110 H 17 96/66 L 93 11/12/19 14:40 115 H 16 102/74 92 11/12/19 14:31 36.5 C 107 H 16 122/63 93 11/12/19 08:28 36.6 C 110 H 18 152/91 H 97 Pain Intensity Left Leg: Pain Intensity: 7 Penis: Pain Intensity: 5 Transfer of Care Handoff Completed per policy Notes Mental Status: alert / awake / arousable and participated in evaluation Patient Amnestic to Procedure: Yes Nausea / Vomiting: adequately controlled Pain: adequately controlled Airway Patency, RR, SpO2: stable & adequate BP & HR: stable & adequate Hydration State: stable & adequate Anesthetic Complications: no major complications apparent and Pt Satisfied with anesthetic care
[2019-11-12 16:39] LABS: Mean Corpuscular Hemoglobin 32.4 pg (25-34); Mean Platelet Volume 9.5 fL (7.4-10.4); Platelet Count 181 K/uL (130-400); RDW Coefficient of Variation 13.4 % (11.5-14.5); RDW Standard Deviation 46.4 fL (36.4-46.3); Red Blood Count 3.86 M/uL (4.7-6.1); White Blood Count 10.35 K/uL (4.8-10.8)
[2019-11-12 16:44] LABS: Basophils # (auto) 0.01 K/uL (0-0.2); Basophils % (auto) 0.1 %; Eosinophils # (auto) 0.13 K/uL (0-0.5); Eosinophils % (auto) 1.2 %; Immature Granulocytes # (auto) 0.04 K/uL (0.00-0.02); Immature Granulocytes % (auto) 0.4 %; Lymphocytes # (auto) 1.52 K/uL (1.2-3.4); Lymphocytes % (auto) 13.9 %; Monocytes # (auto) 1.08 K/uL (0.11-0.59); Monocytes % (auto) 9.9 %; Neutrophils # (auto) 8.12 K/uL (1.4-6.5); Neutrophils % (auto) 74.5 %
[2019-11-12 16:50] LABS: Mean Corpuscular Volume 94.3 fL (80-100)
[2019-11-12 16:51] LABS: Mean Corpuscular Hgb Conc 34.3 g/dL (32-36)
--- NOTE | 2019-11-12 17:36 | Critical Care Consultation ---
Date of Consultation November 12, 2019 Assessment & Plan (1) Peripheral vascular disease: Patient is a 69y/o male with past medical history significant for HTN, CVA, PVD; presents to the ICU for medical management following thrombectomy of femoral to femoral bypass, with femoral to popliteal bypass placement on left lower extremity. Neuro: -[facility] ICU: negative -Patient has no history of delusions longstanding surrounding "protestant causing his disease" Cardiac/Vascular: -Significant history of cardiovascular disease, no known coronary artery disease -Including dry necrosis of left first toe, and repeated bypasses including fem-fem, fem-pop -Resume home lisinopril 10 mg p.o. daily, and rosuvastatin 5 mg p.o. daily -Dopplerable pulses over left lower extremity, sites marked per Dr. Patel -Continue to monitor peripheral pulses and incision site for local changes following recent graft Respiratory: -COPD: -Not in acute exacerbation, patient with extensive smoking history -Started Incruse Ellipta, which she should be continued on as outpatient -BiPAP 12/6 FiO2 40% nightly GI/Nutrition: -Heart healthy, carb consistent diet Renal/Lytes: -No significant electrolyte abnormalities -Continue to monitor daily : -DC Rodriguez cath -Monitor strict I's and O's ENDO: -Monitor according to ICU hypoglycemic protocol -Hold home metformin HEME: -H&H stable ID: -No current concern for infectious etiology -Received cefazolin gabe-operatively -Monitor for signs of infection Lines/IV Access: -DC Rodriguez, DC art line -PIV x1 DVT Prophylaxis: -Hold in the immediate postoperative setting -Resume anticoagulation once cleared by vascular surgery (2) Delusion: (3) COPD (chronic obstructive pulmonary disease): (4) Tobacco use disorder: (5) HTN (hypertension): Supervising Physician Co-Signing Physician Notes 69-year-old male with past medical history of peripheral vascular disease status post Bypass back in 04/01/2019, active smoker comes to the ICU status post thrombectomy of the femoral-femoral bypass, left leg femoral to popliteal in situ bypass left Patient does have delusions since a long time that his peripheral vascular disease is secondary to some kind of protestant. On the previous ICU admission status post bypass he was agitated and required Ativan and haloperidol. Today the time of examination patient is awake alert oriented x3. He still thinks that this is all because of protestant. Hemodynamically stable. Denies any chest pain, no shortness of breath, no headache, no dizziness. Patient has feeble pulses bilaterally. Capillary refill is less than 2 seconds. Extremities are warm. Monitor H&H. Restart anticoagulation once cleared by surgery. BiPAP nightly and PRN shortness of breath Pain management. I have personally spent 45 minutes of critical care time in the direct management of this patient. This is a life/limb threatening event. This includes time spent evaluating patient, direct bedside care, chart review, placing orders, interpretation of diagnostic studies, discussion with consultants, patient, and family members, as well as other required patient management activities. This time is exclusive of all separately billable procedures, and teaching time and separate from and in addition to any other critical care service time. Please note the above document was generated using voice recognition software. It may contain grammatical, syntax or spelling errors. History of Present Illness Attending Physician: Rickie Patel MD History of Present Illness Yasmany James is a 69y/o male with past medical history significant for hypertension, hyperlipidemia, peripheral vascular disease, cerebrovascular accidents, delusions; presented to the ICU for medical management following thrombectomy of femoral bypass, with femoral to popliteal bypass. Patient came into ICU with left radial A-line, urinary catheter, pressure dressing over left anterior thigh. Patient denies any current medical problems, stating "all started when that nicola did the protestant thing." Patient currently denies chest pain, shortness of breath, dizziness, nausea, vomiting, headache, dizziness. Endorses penile pain from Rodriguez catheter, with increased urge to urinate. Allergies Allergy/AdvReac Type Severity Reaction Status Date / Time No Known Allergies Allergy Unverified 11/12/19 08:17 Home Medications Home Medications Medication Instructions Recorded Confirmed Type gabapentin 300 mg PO QAM 09/27/19 11/12/19 History lisinopril 10 mg PO QAM 09/27/19 11/12/19 History rosuvastatin 5 mg PO QAM 09/27/19 11/12/19 History vit C-vit M-ensvjj-jeub-lutein 1 cap PO QAM 09/27/19 11/12/19 History [PreserVision Lutein] apixaban [Eliquis] 5 mg PO QAM 10/17/19 11/12/19 History metformin 500 mg PO BID 10/17/19 11/12/19 History Patient History Medical History CVA (cerebral infarction) 2016 - NO RESIDUAL EFFECTS AND TAKES ELIQUIS Diabetes On Metformin HTN (hypertension) Hyperlipidemia Peripheral vascular disease Surgical History Hx of colonoscopy S/P femoral-femoral bypass surgery LEFT Family History Other Family history non-contributory Social History Smoking Status: Current every day smoker Tobacco Type: Cigarettes Cigarettes Per Day: A FEW A DAY; Second Hand Exposure: No; Do You Dip or Chew Tobacco: No; Tobacco Cessation Education Requested by Patient: No Hx Alcohol Use: No Hx Substance Use: No Preferred Language: Ukrainian Communication Ability: Effective Safety Administrator Required: No Beliefs That Will Affect Care: None marital status: Single Current Living Situation: Alone Other Information That Helps Us Care for You: No Feels Safe at Home: Yes Safety Concerns: Feels Safe At This Time Review of Systems Review of Systems: All systems reviewed & are unremarkable except as noted in HPI & below Physical Exam Constitutional: WD/WN, vitals as above Eyes: PERRL, conjunctivae normal, anicteric sclerae ENMT: external ear and nose normal, oropharynx normal Respiratory: normal respiratory effort; no respiratory distress, no labored breathing and no retractions Auscultation: + wheezes Cardiovascular: Rate/Rhythm: regular rate and regular rhythm Heart Sounds: no gallop, no murmur and no cardiac rub Bilateral doppler-able posterior tibial, dorsalis pedis pulses; R more vigorous than L Gastrointestinal (Abdomen): normal bowel sounds, soft, nontender, no hepatosplenomegaly Musculoskeletal: Extremities: strength 5/5 throughout, + cyanosis and + clubbing Skin: no rashes, warm and dry Neurologic: patellar DTR's 2+ bilat, sensation intact and PERRL, EOMI, accommodation nl, no face palsy, no dysarthria deep tendon reflexes 2+ bilaterally and plantar reflexes intact bilaterally Psychiatric: Orientation: alert and oriented x 3 Thought Content: + delusions (states disease was caused by [employer]) Insight: + poor insight Lymphatic: no cervical lymphadenopathy Results & Data Results & Data ([facility]) Vital Signs (Past 12 Hours) Vital Signs Temp Pulse Pulse Resp BP BP Pulse Ox 11/12/19 16:40 102 H 16 97/48 L 100/53 L 97 11/12/19 16:30 100 H 16 109/46 L 98/59 L 97 11/12/19 16:20 36.4 C L 100 H 16 127/50 L 120/61 97 11/12/19 16:10 104 H 18 107/43 L 96/57 L 96 11/12/19 16:00 97 H 14 98/43 L 99/58 L 96 11/12/19 15:50 36.5 C 102 H 16 101/47 L 89/52 L 94 11/12/19 15:40 102 H 15 85/58 L 95/46 L 95 11/12/19 15:30 99 H 14 91/60 L 91/57 L 95 11/12/19 15:20 103 H 16 96/66 L 95 11/12/19 15:10 106 H 14 101/72 94 11/12/19 15:00 110 H 14 98/64 L 94 11/12/19 14:50 110 H 17 96/66 L 93 11/12/19 14:40 115 H 16 102/74 92 11/12/19 14:31 36.5 C 107 H 16 122/63 93 11/12/19 08:28 36.6 C 110 H 18 152/91 H 97 Laboratory Results 11/12/19 11/12/19 11/12/19 Range/Units 15:00 08:28 08:28 WBC 10.35 (4.8-10.8) K/uL RBC 3.86 L (4.7-6.1) M/uL Hgb 12.5 L D (14.0-18.0) g/dL Hct 36.4 L (42-52) % MCV 94.3 (80-100) fL MCH 32.4 (25-34) pg MCHC 34.3 (32-36) g/dL RDW Std Deviation 46.4 H (36.4-46.3) fL RDW Coeff of Maddison 13.4 (11.5-14.5) % Plt Count 181 (130-400) K/uL MPV 9.5 (7.4-10.4) fL Immature Gran % (Auto) 0.4 % Neut % (Auto) 74.5 % Lymph % (Auto) 13.9 % Archer % (Auto) 9.9 % Eos % (Auto) 1.2 % Baso % (Auto) 0.1 % Neut # (Auto) 8.12 H (1.4-6.5) K/uL Lymph # (Auto) 1.52 (1.2-3.4) K/uL Archer # (Auto) 1.08 H (0.11-0.59) K/uL Eos # (Auto) 0.13 (0-0.5) K/uL Baso # (Auto) 0.01 (0-0.2) K/uL Immature Gran # (Auto) 0.04 H (0.00-0.02) K/uL PT 10.9 (9.0-12.0) Seconds INR 1.0 (0.9-1.1) APTT 24.2 (21.0-31.0) Seconds PTT Ratio 0.9 Sodium 137 (136-145) mmol/L Potassium 3.7 (3.5-5.1) mmol/L Chloride 106 (98-107) mmol/L Carbon Dioxide 25 (21-32) mmol/L Anion Gap 6.0 (3-11) BUN 12 (7-18) mg/dl Creatinine 0.90 (0.6-1.4) mg/dl Est Cr Clr Drug Dosing 79.7 ml/min Est GFR ( Amer) 99.2 Est GFR (Non-Af Amer) 85.6 BUN/Creatinine Ratio 13.5 (10-20) Glucose 162 H (70-99) mg/dl Calcium 9.2 (8.5-10.1) mg/dl Blood Type Antibody Screen Crossmatch 11/12/19 11/12/19 Range/Units 08:28 08:28 WBC 7.51 (4.8-10.8) K/uL RBC 4.65 L (4.7-6.1) M/uL Hgb 15.5 (14.0-18.0) g/dL Hct 44.2 (42-52) % MCV 95.1 (80-100) fL MCH 33.3 (25-34) pg MCHC 35.1 (32-36) g/dL RDW Std Deviation 45.7 (36.4-46.3) fL RDW Coeff of Maddison 13.3 (11.5-14.5) % Plt Count 217 (130-400) K/uL MPV 10.0 (7.4-10.4) fL Immature Gran % (Auto) 0.3 % Neut % (Auto) 67.0 % Lymph % (Auto) 21.0 % Archer % (Auto) 8.5 % Eos % (Auto) 3.1 % Baso % (Auto) 0.1 % Neut # (Auto) 5.03 (1.4-6.5) K/uL Lymph # (Auto) 1.58 (1.2-3.4) K/uL Archer # (Auto) 0.64 H (0.11-0.59) K/uL Eos # (Auto) 0.23 (0-0.5) K/uL Baso # (Auto) 0.01 (0-0.2) K/uL Immature Gran # (Auto) 0.02 (0.00-0.02) K/uL PT (9.0-12.0) Seconds INR (0.9-1.1) APTT (21.0-31.0) Seconds PTT Ratio Sodium (136-145) mmol/L Potassium (3.5-5.1) mmol/L Chloride (98-107) mmol/L Carbon Dioxide (21-32) mmol/L Anion Gap (3-11) BUN (7-18) mg/dl Creatinine (0.6-1.4) mg/dl Est Cr Clr Drug Dosing ml/min Est GFR ( Amer) Est GFR (Non-Af Amer) BUN/Creatinine Ratio (10-20) Glucose (70-99) mg/dl Calcium (8.5-10.1) mg/dl Blood Type A Positive Antibody Screen NEGATIVE Crossmatch See Detail Medications Administered Current Inpatient Medications Gabapentin (Gabapentin 300 Mg Cap) 300 mg PO QAM [facility] Stop: 12/13/19 08:59 Cefazolin Sodium (Ancef 2000mg) 2,000 mg in 15 mls @ 3.75 mls/min IV Q8H SCOTT; Protocol Stop: 11/13/19 02:03 Last Admin: 11/12/19 17:39 Dose: 3.75 mls/min Documented by: Dextrose/Sodium Chloride (D5w And 1/2nss) 1,000 mls @ 125 mls/hr IV .Q8H [facility] Stop: 12/12/19 17:08 Last Admin: 11/12/19 17:39 Dose: 125 mls/hr Documented by: Lisinopril (L[facility]op[facility] 10 Mg Tab) [facility] Stop: 12/13/19 08:59 Morphine Sulfate (Morphine Sulfate 4 Mg/Ml 1 Ml Carp\\Vial) 1 - 4 mg IV Q2H PRN PRN Reason: Severe Pain Stop: 11/26/19 17:08 Multivitamins/Minerals (Cerovite Adv Formula Tab) 1 tab PO [facility] Stop: 12/13/19 08:59 Ondansetron HCl (Ondansetron Inj 2 Mg/Ml 2 Ml Vial) 4 mg IV Q6H PRN PRN Reason: Nausea And Vomiting Stop: 12/12/19 17:08 Oxycodone/Acetaminophen (Oxycodone/Acetaminophen 5mg/325mg Tab) 1 - 2 tab PO Q4H PRN PRN Reason: Moderate Pain Stop: 11/26/19 17:08 Rosuvastatin Calcium (Rosuvastatin Calcium 5 Mg Tab) 5 mg PO [facility] Stop: 12/13/19 08:59 Resident Activity Tracking Resident Involvement: Resident Care Provided Care Provided: Adult Hospital Medicine (Critical Care)
[2019-11-12] MEDS: CEFAZOLIN 2000MG 2,000 MG/15 ML SYR IV SCH (17:39)
[2019-11-12] MEDS: D5W AND 1/2NSS 1,000 ML IV SCH (17:39)
[2019-11-12] MEDS ORDERED: ICU PROTOCOL FOR HYPERGLYCEMIA PRN (17:50)
--- NOTE | 2019-11-12 18:12 | Electrocardiogram Report ---
Test Reason : Blood Pressure : / mmHG Vent. Rate : 104 BPM Atrial Rate : 104 BPM P-R Int : 216 ms QRS Dur : 088 ms QT Int : 334 ms P-R-T Axes : 068 -27 066 degrees QTc Int : 439 ms Sinus tachycardia with 1st degree A-V block Otherwise normal ECG When compared with ECG of 30-OCT-2019 17:15, Criteria for Inferior infarct are no longer Present Confirmed by Pascual Arriaga ([id number]) on 11/12/2019 6:12:20 PM Referred By: Rickie Patel Confirmed By:Jose Luis Arriaga
--- NOTE | 2019-11-12 18:22 | Billing Data ---
Date of Service November 12, 2019 Ramesh Gavin was the resident-physician during care of patient. I separately evaluated patient for celis portions of the history and the exam. I was present during the critical portion of medical decision making, and I discussed the case with the resident. I generally agree with the findings and plan except for any additions/exceptions noted. This time is exclusive of all separately billable procedures, and teaching time and separate from and in addition to any other critical care service time. 69-year-old male with past medical history of peripheral vascular disease status post Bypass back in 04/01/2019, active smoker comes to the ICU status post thrombectomy of the femoral-femoral bypass, left leg femoral to popliteal in situ bypass left Patient does have delusions since a long time that his peripheral vascular disease is secondary to some kind of congregation. On the previous ICU admission status post bypass he was agitated and required Ativan and haloperidol. Today the time of examination patient is awake alert oriented x3. He still thinks that this is all because of congregation. Hemodynamically stable. Denies any chest pain, no shortness of breath, no headache, no dizziness. Patient has feeble pulses bilaterally. Capillary refill is less than 2 seconds. Extremities are warm. Monitor H&H. Restart anticoagulation once cleared by surgery. BiPAP nightly and PRN shortness of breath Pain management. I have personally spent 45 minutes of critical care time in the direct management of this patient. This is a life/limb threatening event. This includes time spent evaluating patient, direct bedside care, chart review, placing orders, interpretation of diagnostic studies, discussion with consultants, patient, and family members, as well as other required patient management activities. This time is exclusive of all separately billable procedures, and teaching time and separate from and in addition to any other critical care service time. Please note the above document was generated using voice recognition software. It may contain grammatical, syntax or spelling errors. Coding Level of Care Code Critical Care 1st 30-74 mins Time Spent (min) 45
[2019-11-12] MEDS: OXYCODONE/ACETAMINOPHEN 5mg/325mg TAB PO PRN (20:02)
[2019-11-12] MEDS: MoRPHine SULFATE 4 MG/ML 1 ML CARP\\VIAL IV PRN (20:03)
[2019-11-13] MEDS: MoRPHine SULFATE 4 MG/ML 1 ML CARP\\VIAL IV PRN ×2 (00:36→10:35)
[2019-11-13] MEDS: OXYCODONE/ACETAMINOPHEN 5mg/325mg TAB PO PRN ×4 (00:37→20:28)
[2019-11-13] MEDS: CEFAZOLIN 2000MG 2,000 MG/15 ML SYR IV SCH (00:37)
[2019-11-13] MEDS: D5W AND 1/2NSS 1,000 ML IV SCH (02:27)
[2019-11-13 05:40] LABS: Basophils # (auto) 0.02 K/uL (0-0.2); Basophils % (auto) 0.3 %; Eosinophils # (auto) 0.21 K/uL (0-0.5); Eosinophils % (auto) 3.2 %; Hematocrit (blood only) 34.1 % (42-52); Hemoglobin 11.6 g/dL (14.0-18.0); Immature Granulocytes # (auto) 0.01 K/uL (0.00-0.02); Immature Granulocytes % (auto) 0.2 %; Lymphocytes # (auto) 1.35 K/uL (1.2-3.4); Lymphocytes % (auto) 20.3 %; Mean Corpuscular Hemoglobin 32.6 pg (25-34); Mean Corpuscular Volume 95.8 fL (80-100); Mean Platelet Volume 9.7 fL (7.4-10.4); Monocytes # (auto) 0.95 K/uL (0.11-0.59); Monocytes % (auto) 14.3 %; Neutrophils # (auto) 4.12 K/uL (1.4-6.5); Neutrophils % (auto) 61.7 %; Platelet Count 158 K/uL (130-400); RDW Coefficient of Variation 13.5 % (11.5-14.5); RDW Standard Deviation 47.4 fL (36.4-46.3); Red Blood Count 3.56 M/uL (4.7-6.1); White Blood Count 6.66 K/uL (4.8-10.8)
[2019-11-13 06:18] LABS: BUN Creatinine Ratio 10.6 (10-20); Calcium 7.7 mg/dl (8.5-10.1); Creatinine Clr Calc Pharmacy 73.9 ml/min; Est GFR (African American) 90.7; Est GFR (Non-African American) 78.2; Magnesium 1.8 mg/dl (1.8-2.4); Phosphorus 3.6 mg/dl (2.5-4.9); Potassium 3.7 mmol/L (3.5-5.1)
[2019-11-13] MEDS: CEROVITE ADV FORMULA TAB PO SCH (07:41)
[2019-11-13] MEDS: lisinopriL 10 MG TAB PO SCH (07:41)
[2019-11-13] MEDS: GABAPENTIN 300 MG CAP PO SCH (07:41)
[2019-11-13] MEDS: ROSUVASTATIN CALCIUM 5 MG TAB PO SCH (07:41)
[2019-11-13] MEDS: UMECLIDINIUM BROMIDE 62.5MCG/BLISTER 7 PUFFS/INHALER INH SCH (07:42)
[2019-11-13] MEDS: guaiFENesin 600 MG TABCR PO SCH ×2 (07:54→20:32)
[2019-11-13] MEDS ORDERED: PNEUMOCOCCAL Polysaccharide Vaccine 25mcg/0.5mL vial/Syr IM ONE (08:00)
--- NOTE | 2019-11-13 08:49 | Critical Care Progress Note ---
Date of Service November 13, 2019 Assessment & Plan (1) Peripheral vascular disease: Patient is a 69y/o male with past medical history significant for HTN, CVA, PVD; presents to the ICU for medical management following thrombectomy of femoral to femoral bypass, with femoral to popliteal bypass placement on left lower extremity. Stand full for downgrade from ICU level of care following vascular surgery clearance. Neuro: -[facility] ICU: negative -Patient has no history of delusions longstanding surrounding "tenriism causing his disease" Cardiac/Vascular: -Significant history of cardiovascular disease, no known coronary artery disease -Including dry necrosis of left first toe, and repeated bypasses including fem-fem, fem-pop -Resume home lisinopril 10 mg p.o. daily, and rosuvastatin 5 mg p.o. daily -Dopplerable pulses over left lower extremity, sites marked per Dr. Patel -Continue to monitor peripheral pulses and incision site for local changes following recent graft Respiratory: -COPD: -Not in acute exacerbation, patient with extensive smoking history -Started Incruse Ellipta, which she should be continued on as outpatient -BiPAP 12/6 FiO2 40% nightly -Chronic bronchitis -Started Mucinex twice daily -Started incentive spirometer every hour while awake GI/Nutrition: -Heart healthy, carb consistent diet Renal/Lytes: -No significant electrolyte abnormalities -Continue to monitor daily : -Monitor strict I's and O's ENDO: -Monitor according to ICU hypoglycemic protocol -Glucose monitoring ACHS -Hold home metformin HEME: -H&H stable ID: -No current concern for infectious etiology -Received cefazolin gabe-operatively -Monitor for signs of infection Lines/IV Access: -DC Rodriguez, DC art line -PIV x1 DVT Prophylaxis: -Hold in the immediate postoperative setting -Resume anticoagulation once cleared by vascular surgery -Per review of records: patient was seen in the emergency department on 09/26; at this time patient was started on Eliquis (10 mg BID weaned to 5 mg BID) per Dr. Patel after venous Dopplers did not demonstrate DVT within lower extremities; however, demonstrated severe atherosclerotic disease. Med rec indicates the patient was taking this as 5 mg daily. This medication should be further evaluated for continued atherosclerotic disease as Eliquis does not appear to be indicated for peripheral vascular disease at this point time. Admission and Anticipated Discharge Date Admission Date: November 12, 2019 Supervising Physician Co-Signing Physician Notes Ramesh Gavin was the resident-physician during care of patient. I separately evaluated patient for celis portions of the history and the exam. I was present during the critical portion of medical decision making, and I discussed the case with the resident. I generally agree with the findings and plan except for any additions/exceptions noted. Patient seen and examined at bedside. No acute distress, no adverse events overnight. Patient does have chronic bronchitis and COPD from his smoking history. He had significant cough in the morning. Mucinex has been added to his medications along with PRN cough suppressant. Patient has been hemodynamically stable. His hemoglobin has been stable. Fever pulses are appreciated by Doppler bilateral lower extremity. Patient has good capillary refill bilateral lower extremities. Is tolerating diet. Patient is stable enough to be sent out of the medical ICU. I have personally spent 31 minutes of critical care time in the direct management of this patient. This is a life/limb threatening event. This includes time spent evaluating patient, direct bedside care, chart review, placing orders, interpretation of diagnostic studies, discussion with consulta nts, patient, and/or family members regarding treatment decisions, as well as other required patient management activities. This time is exclusive of all separately billable procedures, and teaching time and separate from and in addition to any other critical care service time. Subjective Patient had no acute events overnight, early this morning patient continued to cough and hack in order to try and clear his throat. Patient states that he does this on a regular basis, almost every morning, but is uncertain how long this is been going on. Denies chest pain, shortness of breath, nausea, vomiting, dizziness, lightheadedness, fatigue endorses pain (non-localizable), feels like any anytime he is touched at all he has large amounts of pain. Review of Systems Review of Systems: All systems reviewed & are unremarkable except as noted in Subjective Physical Exam Constitutional: WD/WN, vitals as above Eyes: PERRL, conjunctivae normal, anicteric sclerae ENMT: external ear and nose normal, oropharynx normal Respiratory: normal respiratory effort; no respiratory distress, no labored breathing and no retractions Cardiovascular: Rate/Rhythm: regular rate and regular rhythm Heart Sounds: no gallop, no murmur and no cardiac rub Bilateral dopplerable pulses over posterior tibialis and dorsalis pedis pulses lower extremities; left posterior tibialis pulse improved from yesterday on Doppler not palpable. Capillary refill 2 seconds. Gastrointestinal (Abdomen): normal bowel sounds, soft, nontender, no hepatosplenomegaly Musculoskeletal: Extremities: strength 5/5 throughout Skin: no rashes, warm and dry Neurologic: patellar DTR's 2+ bilat, sensation intact and PERRL, EOMI, accommodation nl, no face palsy, no dysarthria deep tendon reflexes 2+ bilaterally and plantar reflexes intact bilaterally Psychiatric: Orientation: alert and oriented x 3 Thought Content: + delusions (states disease was caused by Cheondoism) Insight: + poor insight Lymphatic: no cervical lymphadenopathy Results & Data Results & Data ([facility]) Vital Signs (Past 12 Hours) Vital Signs Temp Pulse Resp BP Pulse Ox Pulse Ox 11/13/19 06:00 36.9 C 99 H 14 94 11/13/19 05:15 98 H 14 100/65 92 11/13/19 05:00 99 H 15 91 11/13/19 04:15 98 H 16 108/60 94 11/13/19 04:00 95 H 13 96 11/13/19 03:14 100 H 14 123/71 95 11/13/19 03:00 121 H 26 H 95 11/13/19 02:15 95 H 10 L 94/57 L 95 11/13/19 02:00 98 H 17 93 11/13/19 01:15 96 H 16 98/56 L 94 11/13/19 01:00 99 H 12 94 11/13/19 00:14 98 H 17 106/69 94 11/13/19 00:00 95 H 11 L 94 11/12/19 23:59 95 11/12/19 23:15 98 H 13 114/69 95 11/12/19 23:00 99 H 12 96 11/12/19 22:14 97 H 12 131/64 97 11/12/19 22:00 36.8 C 94 H 11 L 95 11/12/19 21:15 95 H 13 105/67 96 11/12/19 21:00 97 H 11 L 95 Laboratory Results 11/13/19 11/13/19 11/12/19 Range/Units 04:35 04:35 17:00 WBC 6.66 (4.8-10.8) K/uL RBC 3.56 L (4.7-6.1) M/uL Hgb 11.6 L (14.0-18.0) g/dL Hct 34.1 L (42-52) % MCV 95.8 (80-100) fL MCH 32.6 (25-34) pg MCHC 34.0 (32-36) g/dL RDW Std Deviation 47.4 H (36.4-46.3) fL RDW Coeff of Maddison 13.5 (11.5-14.5) % Plt Count 158 (130-400) K/uL MPV 9.7 (7.4-10.4) fL Immature Gran % (Auto) 0.2 % Neut % (Auto) 61.7 % Lymph % (Auto) 20.3 % [place] % (Auto) 14.3 % Eos % (Auto) 3.2 % Baso % (Auto) 0.3 % Neut # (Auto) 4.12 (1.4-6.5) K/uL Lymph # (Auto) 1.35 (1.2-3.4) K/uL [place] # (Auto) 0.95 H (0.11-0.59) K/uL Eos # (Auto) 0.21 (0-0.5) K/uL Baso # (Auto) 0.02 (0-0.2) K/uL Immature Gran # (Auto) 0.01 (0.00-0.02) K/uL Sodium 138 (136-145) mmol/L Potassium 3.7 (3.5-5.1) mmol/L Chloride 106 (98-107) mmol/L Carbon Dioxide 26 (21-32) mmol/L Anion Gap 6.0 (3-11) BUN 10 (7-18) mg/dl Creatinine 0.97 (0.6-1.4) mg/dl Est Cr Clr Drug Dosing 73.9 ml/min Est GFR ( Amer) 90.7 Est GFR (Non-Af Amer) 78.2 BUN/Creatinine Ratio 10.6 (10-20) Glucose 140 H (70-99) mg/dl Calcium 7.7 L D (8.5-10.1) mg/dl Phosphorus 3.6 (2.5-4.9) mg/dl Magnesium 1.8 (1.8-2.4) mg/dl Nasal Screen MRSA (PCR) Negative (Negative) Blood Type Antibody Screen Crossmatch 11/12/19 11/12/19 11/12/19 Range/Units 15:00 08:28 08:28 WBC 10.35 (4.8-10.8) K/uL RBC 3.86 L (4.7-6.1) M/uL Hgb 12.5 L D (14.0-18.0) g/dL Hct 36.4 L (42-52) % MCV 94.3 (80-100) fL MCH 32.4 (25-34) pg MCHC 34.3 35.1 (32-36) g/dL RDW Std Deviation 46.4 H (36.4-46.3) fL RDW Coeff of Maddison 13.4 (11.5-14.5) % Plt Count 181 (130-400) K/uL MPV 9.5 (7.4-10.4) fL Immature Gran % (Auto) 0.4 % Neut % (Auto) 74.5 % Lymph % (Auto) 13.9 % [place] % (Auto) 9.9 % Eos % (Auto) 1.2 % Baso % (Auto) 0.1 % Neut # (Auto) 8.12 H (1.4-6.5) K/uL Lymph # (Auto) 1.52 (1.2-3.4) K/uL [place] # (Auto) 1.08 H (0.11-0.59) K/uL Eos # (Auto) 0.13 (0-0.5) K/uL Baso # (Auto) 0.01 (0-0.2) K/uL Immature Gran # (Auto) 0.04 H (0.00-0.02) K/uL Sodium 137 (136-145) mmol/L Potassium 3.7 (3.5-5.1) mmol/L Chloride 106 (98-107) mmol/L Carbon Dioxide 25 (21-32) mmol/L Anion Gap 6.0 (3-11) BUN 12 (7-18) mg/dl Creatinine 0.90 (0.6-1.4) mg/dl Est Cr Clr Drug Dosing 79.7 ml/min Est GFR ( Amer) 99.2 Est GFR (Non-Af Amer) 85.6 BUN/Creatinine Ratio 13.5 (10-20) Glucose 162 H (70-99) mg/dl Calcium 9.2 (8.5-10.1) mg/dl Phosphorus (2.5-4.9) mg/dl Magnesium (1.8-2.4) mg/dl Nasal Screen MRSA (PCR) (Negative) Blood Type Antibody Screen Crossmatch 11/12/19 Range/Units 08:28 WBC (4.8-10.8) K/uL RBC (4.7-6.1) M/uL Hgb (14.0-18.0) g/dL Hct (42-52) % MCV (80-100) fL MCH (25-34) pg MCHC (32-36) g/dL RDW Std Deviation (36.4-46.3) fL RDW Coeff of Maddison (11.5-14.5) % Plt Count (130-400) K/uL MPV (7.4-10.4) fL Immature Gran % (Auto) % Neut % (Auto) % Lymph % (Auto) % [place] % (Auto) % Eos % (Auto) % Baso % (Auto) % Neut # (Auto) (1.4-6.5) K/uL Lymph # (Auto) (1.2-3.4) K/uL [place] # (Auto) (0.11-0.59) K/uL Eos # (Auto) (0-0.5) K/uL Baso # (Auto) (0-0.2) K/uL Immature Gran # (Auto) (0.00-0.02) K/uL Sodium (136-145) mmol/L Potassium (3.5-5.1) mmol/L Chloride (98-107) mmol/L Carbon Dioxide (21-32) mmol/L Anion Gap (3-11) BUN (7-18) mg/dl Creatinine (0.6-1.4) mg/dl Est Cr Clr Drug Dosing ml/min Est GFR ( Amer) Est GFR (Non-Af Amer) BUN/Creatinine Ratio (10-20) Glucose (70-99) mg/dl Calcium (8.5-10.1) mg/dl Phosphorus (2.5-4.9) mg/dl Magnesium (1.8-2.4) mg/dl Nasal Screen MRSA (PCR) (Negative) Blood Type A Positive Antibody Screen NEGATIVE Crossmatch See Detail Resident Activity Tracking Resident Involvement: Resident Care Provided Care Provided: Adult Hospital Medicine (Critical Care)
[2019-11-13 11:02] LABS: Estimated Average Glucose 180 mg/dl; Hemoglobin A1C 7.9 % (4.5-5.6)
--- NOTE | 2019-11-13 11:41 | Surgery Progress Note ---
Date of Service November 13, 2019 Assessment & Plan (1) S/P femoral-popliteal bypass surgery: Bypass graft patent with good flow to foot. Will transfer to floor and start PT/OT Admission and Anticipated Discharge Date Admission Date: November 12, 2019 Subjective Patient complaining of leg pain but no foot pain in left foot Physical Exam Constitutional: WD/WN, vitals as above Cardiovascular: Vessels: posterior tibial pulses present (doppler present but weaker than dp) and dorsalis pedis pulses present (good left dp doppler) Extremities: normal capillary refill Skin: + incision (dressings intact) Results & Data ([facility]) Vital Signs (Past 12 Hours) Vital Signs Temp Pulse Resp BP Pulse Ox Pulse Ox 11/13/19 11:22 36.6 C 103 H 20 121/62 92 11/13/19 10:15 102 H 17 97/64 L 91 11/13/19 10:00 101 H 16 93 11/13/19 09:15 113 H 17 122/73 96 11/13/19 08:15 36.5 C 106 H 22 99/65 L 91 11/13/19 08:00 92 11/13/19 07:15 107 H 13 125/68 93 11/13/19 06:00 36.9 C 99 H 14 94 11/13/19 05:15 98 H 14 100/65 92 11/13/19 05:00 99 H 15 91 11/13/19 04:15 98 H 16 108/60 94 11/13/19 04:00 95 H 13 96 11/13/19 03:14 100 H 14 123/71 95 11/13/19 03:00 121 H 26 H 95 11/13/19 02:15 95 H 10 L 94/57 L 95 11/13/19 02:00 98 H 17 93 11/13/19 01:15 96 H 16 98/56 L 94 11/13/19 01:00 99 H 12 94 11/13/19 00:14 98 H 17 106/69 94 11/13/19 00:00 95 H 11 L 94 11/12/19 23:59 95
--- NOTE | 2019-11-13 14:38 | Billing Data ---
Date of Service November 13, 2019 Coding Level of Care Code Critical Care 1st 30-74 mins Time Spent (min) 31
[2019-11-13] MEDS: METFORMIN HCL 500 MG TAB PO SCH (17:46)
[2019-11-14] MEDS: OXYCODONE/ACETAMINOPHEN 5mg/325mg TAB PO PRN ×4 (00:59→20:18)
[2019-11-14] MEDS: UMECLIDINIUM BROMIDE 62.5MCG/BLISTER 7 PUFFS/INHALER INH SCH (10:19)
[2019-11-14] MEDS: lisinopriL 10 MG TAB PO SCH (10:19)
[2019-11-14] MEDS: ROSUVASTATIN CALCIUM 5 MG TAB PO SCH (10:19)
[2019-11-14] MEDS: CEROVITE ADV FORMULA TAB PO SCH (10:19)
[2019-11-14] MEDS: APIXABAN 5 MG TABLET PO SCH (10:20)
[2019-11-14] MEDS: METFORMIN HCL 500 MG TAB PO SCH ×2 (10:20→17:13)
[2019-11-14] MEDS: GABAPENTIN 300 MG CAP PO SCH (10:20)
[2019-11-14] MEDS: guaiFENesin 600 MG TABCR PO SCH ×2 (10:20→20:18)
--- NOTE | 2019-11-14 15:11 | Surgery Progress Note ---
Date of Service November 14, 2019 Assessment & Plan (1) S/P femoral-popliteal bypass surgery: Pt doing well post op. Excellent doppler signals L foot. Incisions doing as expected. Continue PT/OT. Admission and Anticipated Discharge Date Admission Date: November 12, 2019 Subjective 69 yo m POD #2 after LLE fem-pop in situ bypass, seen in f/u today. Pt states he is having pain in incisions, not pain in foot. Denies chest pain, SOB, abd pain, N/V, other new complaints. Review of Systems Review of Systems: All systems reviewed & are unremarkable except as noted in HPI & below Physical Exam Constitutional: WD/WN, vitals as above Respiratory: normal respiratory effort, lungs clear to auscultation Auscultation: + diminished lung sounds Cardiovascular: Rate/Rhythm: regular rate and regular rhythm Vessels: posterior tibial pulses present (with doppler) and dorsalis pedis pulses present (with doppler); + abnormal peripheral pulses Extremities: normal capillary refill and + edema (Mild edema LLE) Gastrointestinal (Abdomen): normal bowel sounds, soft, nontender, no hepatosplenomegaly Skin: + incision (incisions C/D/I, +tender ecchymosis no erythema) Psychiatric: Orientation: alert and oriented x 3 Affect: + anxious affect and + irritable affect Results & Data ([facility]) Vital Signs (Past 12 Hours) Vital Signs Temp Pulse Resp BP Pulse Ox 11/14/19 07:50 36.9 C 113 H 16 102/67 92
[2019-11-14] MEDS: DOCUSATE SODIUM 100 MG CAP PO SCH ×2 (15:52→20:18)
[2019-11-15] MEDS: OXYCODONE/ACETAMINOPHEN 5mg/325mg TAB PO PRN ×5 (01:27→23:55)
[2019-11-15] MEDS: METFORMIN HCL 500 MG TAB PO SCH ×2 (09:26→17:59)
[2019-11-15] MEDS: lisinopriL 10 MG TAB PO SCH (09:26)
[2019-11-15] MEDS: APIXABAN 5 MG TABLET PO SCH (09:26)
[2019-11-15] MEDS ORDERED: POLYETHYLENE (MIRALAX) 17 GM PACK PO PRN (09:54)
[2019-11-15] MEDS ORDERED: bisacodyL 10 MG SUPP PR ONE (09:55)
--- NOTE | 2019-11-15 09:59 | Surgery Progress Note ---
Date of Service November 15, 2019 Assessment & Plan (1) S/P femoral-popliteal bypass surgery: Pt doing well post op. Excellent doppler signals L foot. Incisions doing as expected. Continue PT/OT. D/C to rehab when arrangements made. Patient was seen, examined, and chart reviewed. Agree with exam and treatment plan of the Vascular PA. Admission and Anticipated Discharge Date Admission Date: November 12, 2019 Subjective 69 yo m POD #3 after LLE fem-pop in situ bypass, seen in f/u today. Pt states he is having pain in incisions, not pain in foot. Pain is worse with movement/weightbearing, so has been in bed quite a bit. Denies chest pain, SOB, abd pain, N/V, other new complaints. Per therapy notes, pt would be best served by short term inpt rehab. Pt states has not had BM in days, but is unsure when, is having flatus. Review of Systems Review of Systems: All systems reviewed & are unremarkable except as noted in HPI & below Physical Exam Constitutional: WD/WN, vitals as above Respiratory: normal respiratory effort, lungs clear to auscultation Auscultation: + diminished lung sounds Cardiovascular: Rate/Rhythm: regular rate and regular rhythm Vessels: posterior tibial pulses present (with doppler) and dorsalis pedis pulses present (with doppler); + abnormal peripheral pulses Extremities: normal capillary refill and + edema (Mild edema LLE) Gastrointestinal (Abdomen): normal bowel sounds, soft, nontender, no hepatosplenomegaly Skin: + incision (incisions C/D/I, +tender ecchymosis no erythema) Psychiatric: Orientation: alert and oriented x 3 Affect: + anxious affect and + irritable affect Results & Data ([facility]) Vital Signs (Past 12 Hours) Vital Signs Temp Pulse Pulse Resp BP BP Pulse Ox 11/15/19 07:10 36.9 C 103 H 20 99/63 L 95 11/15/19 00:00 36.9 C 96 H 14 118/66 94
[2019-11-15] MEDS: ROSUVASTATIN CALCIUM 5 MG TAB PO SCH (12:10)
[2019-11-15] MEDS: UMECLIDINIUM BROMIDE 62.5MCG/BLISTER 7 PUFFS/INHALER INH SCH (12:10)
[2019-11-15] MEDS: CEROVITE ADV FORMULA TAB PO SCH (12:10)
[2019-11-15] MEDS: DOCUSATE SODIUM 100 MG CAP PO SCH ×2 (12:10→20:45)
[2019-11-15] MEDS: guaiFENesin 600 MG TABCR PO SCH ×2 (12:10→20:45)
[2019-11-15] MEDS: GABAPENTIN 300 MG CAP PO SCH (12:11)
[2019-11-16] MEDS: METFORMIN HCL 500 MG TAB PO SCH ×2 (08:13→17:08)
[2019-11-16] MEDS: OXYCODONE/ACETAMINOPHEN 5mg/325mg TAB PO PRN ×3 (08:13→23:27)
[2019-11-16] MEDS: guaiFENesin 600 MG TABCR PO SCH ×2 (08:14→20:21)
[2019-11-16] MEDS: GABAPENTIN 300 MG CAP PO SCH (08:15)
[2019-11-16] MEDS: lisinopriL 10 MG TAB PO SCH (08:15)
[2019-11-16] MEDS: UMECLIDINIUM BROMIDE 62.5MCG/BLISTER 7 PUFFS/INHALER INH SCH (08:15)
[2019-11-16] MEDS: DOCUSATE SODIUM 100 MG CAP PO SCH ×2 (08:15→20:21)
[2019-11-16] MEDS: CEROVITE ADV FORMULA TAB PO SCH (08:15)
[2019-11-16] MEDS: APIXABAN 5 MG TABLET PO SCH (08:15)
[2019-11-16] MEDS: ROSUVASTATIN CALCIUM 5 MG TAB PO SCH (08:15)
--- NOTE | 2019-11-16 09:44 | Surgery Progress Note ---
Date of Service November 16, 2019 Assessment & Plan (1) S/P femoral-popliteal bypass surgery: Patient is doing well at this time. Hopefully we get him to rehab early this coming week.We will continue his physical therapy and Occupational Therapy. Admission and Anticipated Discharge Date Admission Date: November 12, 2019 Subjective Patient does claim that his leg is feeling better and the pain is easing up slightly. He was ambulating yesterday.He continues to be worried about the tenriism nicola that lives in his apartment but this is baseline for him. Physical Exam Cardiovascular: Excellent Doppler signals are heard in the left foot. Bypass is working nicely. Skin: + incision (Incisions are dry and clean and healing well.) Results & Data ([facility]) Vital Signs (Past 12 Hours) Vital Signs Temp Pulse Resp BP Pulse Ox 11/16/19 07:56 36.6 C 104 H 16 110/66 96 11/15/19 23:52 36.7 C 113 H 18 96/56 L 96
[2019-11-17] MEDS: APIXABAN 5 MG TABLET PO SCH (07:28)
[2019-11-17] MEDS: ROSUVASTATIN CALCIUM 5 MG TAB PO SCH (07:28)
[2019-11-17] MEDS: DOCUSATE SODIUM 100 MG CAP PO SCH ×2 (07:28→20:30)
[2019-11-17] MEDS: guaiFENesin 600 MG TABCR PO SCH ×2 (07:28→20:30)
[2019-11-17] MEDS: CEROVITE ADV FORMULA TAB PO SCH (07:28)
[2019-11-17] MEDS: lisinopriL 10 MG TAB PO SCH (07:28)
[2019-11-17] MEDS: GABAPENTIN 300 MG CAP PO SCH (07:29)
[2019-11-17] MEDS: UMECLIDINIUM BROMIDE 62.5MCG/BLISTER 7 PUFFS/INHALER INH SCH (07:29)
[2019-11-17] MEDS: METFORMIN HCL 500 MG TAB PO SCH ×2 (07:29→16:42)
[2019-11-17] MEDS: OXYCODONE/ACETAMINOPHEN 5mg/325mg TAB PO PRN ×3 (07:31→19:34)
--- NOTE | 2019-11-17 08:38 | Surgery Progress Note ---
Date of Service November 17, 2019 Assessment & Plan (1) S/P femoral-popliteal bypass surgery: Pt doing well post op. Excellent doppler signals L foot. Incisions doing as expected. Continue PT/OT. Hopefully can get him to rehab this week Admission and Anticipated Discharge Date Admission Date: November 12, 2019 Subjective Patient does claim that his leg is feeling better this morning but did have pain in his calf incision during the night. He says he wants to go to rehab. Physical Exam Constitutional: WD/WN, vitals as above Cardiovascular: Vessels: posterior tibial pulses present (doppler present ) and dorsalis pedis pulses present (good left dp doppler) Extremities: normal capillary refill Skin: + incision (Incisions are dry and clean and healing well.) Results & Data ([facility]) Vital Signs (Past 12 Hours) Vital Signs Temp Pulse Resp BP Pulse Ox 11/17/19 07:05 36.7 C 101 H 18 154/83 H 97 11/17/19 00:00 36.7 C 102 H 16 127/73 99
[2019-11-18] MEDS: OXYCODONE/ACETAMINOPHEN 5mg/325mg TAB PO PRN ×3 (00:25→12:30)
[2019-11-18] MEDS: DOCUSATE SODIUM 100 MG CAP PO SCH (08:45)
[2019-11-18] MEDS: APIXABAN 5 MG TABLET PO SCH (08:45)
[2019-11-18] MEDS: METFORMIN HCL 500 MG TAB PO SCH (08:45)
[2019-11-18] MEDS: ROSUVASTATIN CALCIUM 5 MG TAB PO SCH (08:45)
[2019-11-18] MEDS: guaiFENesin 600 MG TABCR PO SCH (08:46)
[2019-11-18] MEDS: UMECLIDINIUM BROMIDE 62.5MCG/BLISTER 7 PUFFS/INHALER INH SCH (08:46)
[2019-11-18] MEDS: GABAPENTIN 300 MG CAP PO SCH (08:47)
[2019-11-18] MEDS: CEROVITE ADV FORMULA TAB PO SCH (08:47)
[2019-11-18] MEDS: lisinopriL 10 MG TAB PO SCH (08:48)
--- NOTE | 2019-11-18 09:02 | Surgery Progress Note ---
Date of Service November 18, 2019 Assessment & Plan (1) S/P femoral-popliteal bypass surgery: Pt doing well post op. Excellent doppler signals L foot. Incisions doing as expected. Continue PT/OT. Can go to rehab when a bed available. Admission and Anticipated Discharge Date Admission Date: November 12, 2019 Subjective Patient without complaints today. Says pain comes and goes but not intolerable. Physical Exam Cardiovascular: Vessels: posterior tibial pulses present (doppler present ) and dorsalis pedis pulses present (good left dp doppler) Extremities: normal capillary refill Skin: + incision (dry and clean) Results & Data ([facility]) Vital Signs (Past 12 Hours) Vital Signs Temp Pulse Resp BP Pulse Ox 11/18/19 08:45 107/66 11/18/19 07:32 36.8 C 95 H 16 104/59 L 96 11/17/19 23:23 36.7 C 92 H 14 106/66 96
--- NOTE | 2019-12-02 10:24 | Operative Report ---
Post Operative Report Pre & Post Diagnosis Operation Date: 11/12/19 09:30 Pre-Op Diagnosis: Ischemic Left Leg Post-Op Diagnosis: Ischemic Left Leg I identified the patient and participated in the time-out.: Yes Procedure Operation Date: 11/12/19 09:30 Actual Procedures p Thrombectomy of Femoral Femoral Bypass, Bovine Patch Angioplasty, Proximal to Distal Anastomis of Femoral to Femoral Bypass, Left Leg Femoral to Popliteal Insitu Bypass(Left) - Rickie Patel MD s Left Leg Angioplasty, (Left) - Rickie Patel MD Surgeon Rickie Patel MD Management Development Specialist [employer] Estimated Blood Loss 150 Findings Consistent with Post-Op Diagnosis Specimens None Anesthesia Type General Complications none Disposition Accompanied Patient To Recovery: No Disposition: Recovery Room Indications This is a 69-year-old gentleman who had a 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 He did well until recently where he occluded his femorofemoral bypass. Thrombectomy with revision and possible left femoropopliteal bypass was recommended. I have discussed the risks options and benefits of the procedure with the patient. The patient understands the risks options and benefits and agrees to the procedure. Description of Procedure The patient was taken to the operating room and placed in supine position. The groins and the left lower extremities prepped draped sterile manner. General anesthesia was then accomplished. A timeout was performed and the patient was identified. Longitudinal incision was then made in both groins. This was taken down to where the common femoral artery was identified on both sides. The common femoral and the femorofemoral bypass limbs were isolated. Profunda and superficial femoral arteries just beyond the origins were also isolated. Patient was heparinized at that time. Clamp was then placed on the right side of the femorofemoral bypass on the common femoral artery proximally and the profunda and superficial femoral artery. Longitudinal incision was made in the taveras of the femorofemoral graft. Thrombus was seen at that level as well as hyperplasia of the anastomosis. Using Adilene catheter the clot was removed from the femorofemoral bypass. There was backbleeding noted. It was decided to patch the anastomosis being that there was some hyperplasia present. This was done with a bovine patch. It was sewn in place with a 5-0 Prolene suture. Clamp was replaced on the femorofemoral graft and the clamps removed from the common superficial profundofemoral arteries on the right side. Good flow was seen down the right leg. At that point the proximal common superficial femoral artery and profundofemoral arteries were clamped. Longitudinal graftotomy was performed on the taveras of the graft. Adilene catheter was passed to make sure there was not any residual clot. No clot was noted. There was again hyperplasia seen. We then used a bovine patch on this side also and something in place with a 5-0 Prolene. Next the saphenous vein was identified. The first 2 branches were ligated and divided. The saphenous vein was then clamped at the saphenofemoral junction and transected. The saphenofemoral junction was oversewn with 5-0 Prolene suture. We then made an incision over the distal end of the saphenous vein. It was of good caliber at that level. Incision was carried out to where the distal popliteal artery was identified. It was soft and very usable at that level. In the proximal end the vein was slightly short to reach the graft that was present so we endarterectomized the superficial femoral artery beyond its origin to a point where the graft would sit without any tension. An end-to-side anastomosis was then accomplished between the saphenous vein after dividing the first valve. This was done with 5-0 Prolene suture. The distal end of the saphenous vein in the calf was then ligated and divided. The branches of the saphenous vein and the lower incision were all divided after ligating with silk sutures. Using the LeMaitre valve cutters the valves of the saphenous vein were divided. Good flow was seen through the saphenous vein. The popliteal arteries then clamped proximally distally. Longitudinal arteriotomy was then made. An end-to-side anastomosis was then accomplished in the saphenous vein in the popliteal artery using a running 6-0 Prolene suture in the usual vascular fashion. Prior to completing the closure backbleeding for bleeding was allowed to occur to find few sutures were placed a nd securely tied. Clamps were then removed. Excellent flow was seen through the distal artery. There were good Doppler signals beyond the anastomosis. There was a faint Doppler heard on the foot. Does have a fair amount of outflow occlusive disease in the pedal vessels. The proximal portion of saphenous vein was then punctured with micropuncture technique and an arteriogram was performed. This showed no large branches of the saphenous vein. Distal anastomosis was widely patent. There was a peroneal artery is patent down to the ankle which fed small collaterals to the foot. This catheter was then removed and the puncture site closed with a 6-0 Prolene. Adequate hemostasis was obtained of the wounds. After the anastomosis of wound showed adequate hemostasis the wounds were closed in usual fashion using running 2-0 Vicryl suture for the femoral sheath 3-0 Vicryl/subcutaneous layers and fe for the skin.The patient left the operation room in satisfactory condition and tolerated the procedure well. All needle and sponge counts were correct at the end of the procedure. Sylvia Sánchez Pac assisted due to lack of resident availability and was necessary for positioning, draping, retraction, wound closure deep layers, subcutaneous tissue, and skin closure and was necessary for assisting with the case. I attest to the content of the Intraoperative Record and any orders documented therein. Any exceptions are noted below.
== END 2019-11-18 14:22 | DRG 253 ==
LOC: ASU 07:24 → 1E 08:53 → 3W 11-13 12:29

== ENCOUNTER 2020-03-11 20:09 | Inpatient (IN) ==
[2020-03-11] MEDS ORDERED: LORazepam 2 MG/4 ML VIAL ONE (22:32)
[2020-03-11] MEDS ORDERED: HALOPERIDOL LACTATE 5 MG/ML 1 ML VIAL ONE (22:32)
[2020-03-11] MEDS ORDERED: HALOPERIDOL LACTATE 5 MG/ML 1 ML VIAL IV STA (22:38)
[2020-03-11] MEDS ORDERED: LORazepam 2 MG/4 ML VIAL IV STA (22:38)
[2020-03-11 22:53] LABS: Basophils # (auto) 0.02 K/uL (0-0.2); Basophils % (auto) 0.2 %; Eosinophils # (auto) 0.27 K/uL (0-0.5); Eosinophils % (auto) 2.5 %; Hematocrit (blood only) 44.7 % (42-52); Hemoglobin 15.6 g/dL (14.0-18.0); Immature Granulocytes # (auto) 0.04 K/uL (0.00-0.02); Immature Granulocytes % (auto) 0.4 %; Lymphocytes # (auto) 2.71 K/uL (1.2-3.4); Lymphocytes % (auto) 25.4 %; Mean Corpuscular Hemoglobin 33.3 pg (25-34); Mean Corpuscular Hgb Conc 34.9 g/dL (32-36); Mean Corpuscular Volume 95.3 fL (80-100); Mean Platelet Volume 10.1 fL (7.4-10.4); Monocytes # (auto) 1.15 K/uL (0.11-0.59); Monocytes % (auto) 10.8 %; Neutrophils # (auto) 6.46 K/uL (1.4-6.5); Neutrophils % (auto) 60.7 %; Platelet Count 254 K/uL (130-400); RDW Coefficient of Variation 13.5 % (11.5-14.5); RDW Standard Deviation 46.9 fL (36.4-46.3); Red Blood Count 4.69 M/uL (4.7-6.1); White Blood Count 10.65 K/uL (4.8-10.8)
--- NOTE | 2020-03-11 23:03 | Emergency Department Note ---
Impression & Plan Psychosis ED Provider Note Provider: Terrence Ramirez MD DATE OF SERVICE:03/11/2020 CHIEF COMPLAINT: I do not know why here I want to go home HISTORY OF PRESENT ILLNESS: Patient is a 69-year-old gentleman with a history of CVA, diabetes, hypertension, hyperlipidemia, peripheral vascular disease status post femoral-femoral bypass surgery in the past presenting on a 302 warrant today for mental health evaluation. Patient states he is fine he just was to go home. Patient denies any suicidal ideation or wishes to harm himself or anyone else. Patient states he just wants to go home and does not know why he is here. Patient states he was just sitting in his house and the police came and brought him here. Patient denies a history of suicide attempts or attempts to harm anyone else. Patient does state that there is a neighbor there is been forming yazidi on him at various times. This has been an ongoing issue. He denies any wish to harm anybody. States he did talk to several people in the phone with her making things up. Patient states he does not have access to weapons. REVIEW OF SYSTEMS: A total of 10 review of systems was obtained and negative except as stated above in the HPI. PAST MEDICAL HISTORY: As noted above MEDICATIONS: Reviewed home medication list SOCIAL HISTORY: Lives by himself PHYSICAL EXAM: GENERAL: alert sitting in chair in the room holding his cane with his hat on talking with staff and history close Head: normocephalic and atraumatic EYES: No injection, discharge or icterus. NECK: Trachea midline. ENT: Mucous membranes pink and moist. LUNGS: Airway patent. No retractions. Not tachypneic. HEART: Regular rate and rhythm. SKIN: Acyanotic, warm, dry, without rashes EXTREMITIES: Without swelling, tenderness or deformity NEUROLOGICAL: Moves all extremities and is ambulatory. Has his cane with him. Psychiatric: Patient denies SI or HI. Patient denies hallucinations. Patient reports that the neighbors performing yazidi on him and has decreased insight. Is highly animated. Patient's laboratory studies reviewed. Differential includes Mood disorder, infection, hypoglycemia, electrolyte abnormalities, cardiac sources, intracerebral event, toxicologic, trauma, neurologic, as well as other pathologies. IMPRESSION/MEDICAL DECISION MAKING: Patient presents here for mental health evaluation on a 302 warrant. Patient denies suicidal or homicidal ideation to me. He denies mental health history. States he just wants to go home. Discussed with him the need for evaluation here. Discussed with him petition statement and the concerning findings in this. Patient states he believes this is not true. He is refusing blood work here. Refused to change for staff. Myself and staff both informed him we would need to do this we would possibly need sedation and security involvement. Patient became agitated and screaming and staff was struck by his cane. Given this for patient and staff safety patient was given Haldol and Ativan. 302 statements highly concerning for the glueline worker who reports a clear plan the patient verbalized to her in the statement to get a gun to kill the neighbor. Patient appears to be suffering from psychosis. Medical evaluation and labs were completed here. No significant abnormalities are noted. assistant branch manager assisted in evaluation and 302 will be completed given the psychosis of seen here and the statement with concern for homicidal ideation. DIAGNOSIS: Psychosis DISPOSITION: Signed a pending inpatient psychiatric placement on a 302 involuntary commitment Critical Care I have personally spent 31 minutes of critical care time in the direct managem ent of this patient for psychosis requiring sedation. This includes bedside care, interpretation of diagnostic studies, and testing, discussion with patient and other required patient management activities. These 31 minutes is in excess of all separately billable procedures. Past Med/Surg History Medical History (Updated 03/11/20 @ 23:08 by Terrence Ramirez M.D.) CVA (cerebral infarction) 2016 - NO RESIDUAL EFFECTS AND TAKES ELIQUIS Diabetes On Metformin HTN (hypertension) Hyperlipidemia Ischemic leg pain Peripheral vascular disease Surgical History (Updated 11/13/19 @ 11:41 by Rickie Patel MD) Hx of colonoscopy S/P femoral-femoral bypass surgery LEFT Family History Other Family history non-contributory Social History Smoking Status: Never smoker Tobacco Type: Cigarettes Cigarettes Per Day: A FEW A DAY; Second Hand Exposure: No; Hx Alcohol Use: No Hx Substance Use: No Preferred Language: Tajik Communication Ability: Effective Adult Daycare Coordinator Required: No Beliefs That Will Affect Care: None marital status: Single Current Living Situation: Alone How many Children do You have: 0 Feels Safe at Home: Yes Assistive Devices: Cane and Glasses Allergies Allergies Allergy/AdvReac Type Severity Reaction Status Date / Time No Known Allergies Allergy Unverified 11/12/19 08:17 Home Meds Home Medications Medication Instructions Recorded Confirmed PreserVision Lutein 1 cap PO QAM 09/27/19 11/12/19 gabapentin 300 mg PO QAM 09/27/19 11/12/19 lisinopril 10 mg PO QAM 09/27/19 11/12/19 rosuvastatin 5 mg PO QAM 09/27/19 11/12/19 Eliquis 5 mg PO QAM 10/17/19 11/12/19 metformin 500 mg PO BID 10/17/19 11/12/19 Previous Rx's Medication Instructions Recorded docusate sodium 100 mg PO BID #60 cap 11/18/19 oxycodone 5 mg PO Q6H #60 tab 11/18/19 Results & Data (ED) Vital Signs Vital Signs - 24 hr 03/11/20 20:18 03/11/20 22:50 03/12/20 00:59 Temperature 36.6 C Temperature Source Oral Pulse Rate 98 H Pulse Rate [Finger] 115 H 100 H Pulse Rhythm [Finger] Regular Pulse Strength [Finger] Normal Respiratory Rate 18 20 16 Respiratory Effort / Characteristics Non-Labored Spontaneous Respiratory Depth Normal Respiratory Pattern Regular Blood Pressure 124/80 Blood Pressure [Left Arm] 108/82 150/76 H Blood Pressure Mean 94 Blood Pressure Mean [Left Arm] 90 100 Blood Pressure Position [Left Arm] Lying Pulse Oximetry 96 97 100 Oxygen Delivery Method Room Air Room Air Sepsis Recent Fever Within 48 Hours No Sepsis New/Unexplained Change in Mental Status No Sepsis Action Taken by Nursing No Action Required Laboratory Data Result diagrams: 03/11/20 22:41 03/11/20 22:41 Lab Results 03/11/20 03/11/20 03/11/20 Range/Units 22:41 22:41 22:41 WBC 10.65 (4.8-10.8) K/uL RBC 4.69 L (4.7-6.1) M/uL Hgb 15.6 (14.0-18.0) g/dL Hct 44.7 (42-52) % MCV 95.3 (80-100) fL MCH 33.3 (25-34) pg MCHC 34.9 (32-36) g/dL RDW Std Deviation 46.9 H (36.4-46.3) fL RDW Coeff of Maddison 13.5 (11.5-14.5) % Plt Count 254 (130-400) K/uL MPV 10.1 (7.4-10.4) fL Immature Gran % (Auto) 0.4 % Neut % (Auto) 60.7 % Lymph % (Auto) 25.4 % [place] % (Auto) 10.8 % Eos % (Auto) 2.5 % Baso % (Auto) 0.2 % Neut # (Auto) 6.46 (1.4-6.5) K/uL Lymph # (Auto) 2.71 (1.2-3.4) K/uL [place] # (Auto) 1.15 H (0.11-0.59) K/uL Eos # (Auto) 0.27 (0-0.5) K/uL Baso # (Auto) 0.02 (0-0.2) K/uL Immature Gran # (Auto) 0.04 H (0.00-0.02) K/uL Sodium 136 (136-145) mmol/L Potassium (3.5-5.1) mmol/L Chloride 105 (98-107) mmol/L Carbon Dioxide 24 (21-32) mmol/L Anion Gap 8.0 (3-11) BUN 21 H (7-18) mg/dl Creatinine 1.10 (0.6-1.4) mg/dl Est Cr Clr Drug Dosing 67.1 ml/min Est GFR ( Amer) 77.9 Est GFR (Non-Af Amer) 67.2 BUN/Creatinine Ratio 18.7 (10-20) Glucose 171 H (70-99) mg/dl Calcium 9.0 (8.5-10.1) mg/dl Total Bilirubin 0.4 (0.2-1) mg/dl AST (15-37) U/L ALT 29 (12-78) U/L Alkaline Phosphatase 54 (45-117) U/L Total Protein 7.5 (6.4-8.2) gm/dl Albumin 3.6 (3.4-5.0) gm/dl Globulin 3.9 (2.5-4.0) gm/dl Albumin/Globulin Ratio 0.9 (0.9-2) TSH 1.890 (0.300-4.500) uIu/ml Urine Color Urine Appearance (Clear) Urine pH (4.5-7.5) Ur Specific [place] (1.000-1.030) Urine Protein (Negative) Urine Glucose (UA) (Negative) Urine Ketones (Negative) Urine Blood (Negative) Urine Nitrite (Negative) Urine Bilirubin (Negative) Urine Urobilinogen (Negative) Ur Leukocyte Esterase (Negative) Salicylates 2.4 L (2.8-20) mg/dl Urine Opiates Screen (Neg) Ur Methadone, Qual (Neg) Acetaminophen < 2 L (10-30) ug/ml Urine Barbiturates (Neg) Ur Phencyclidine (PCP) (Neg) U Amphetamin/Meth Scrn (Neg) MDMA (Ecstasy) Screen (Neg) U Benzodiazepines Scrn (Neg) Ur Cocaine Metabolite (Neg) U Marijuana (THC) Screen (Neg) Ethyl Alcohol mg/dL (0-3) mg/dl 03/11/20 03/12/20 03/12/20 Range/Units 22:41 00:52 00:52 WBC (4.8-10.8) K/uL RBC (4.7-6.1) M/uL Hgb (14.0-18.0) g/dL Hct (42-52) % MCV (80-100) fL MCH (25-34) pg MCHC (32-36) g/dL RDW Std Deviation (36.4-46.3) fL RDW Coeff of [place] (11.5-14.5) % Plt Count (130-400) K/uL MPV (7.4-10.4) fL Immature Gran % (Auto) % Neut % (Auto) % Lymph % (Auto) % [place] % (Auto) % Eos % (Auto) % Baso % (Auto) % Neut # (Auto) (1.4-6.5) K/uL Lymph # (Auto) (1.2-3.4) K/uL [place] # (Auto) (0.11-0.59) K/uL Eos # (Auto) (0-0.5) K/uL Baso # (Auto) (0-0.2) K/uL Immature Gran # (Auto) (0.00-0.02) K/uL Sodium (136-145) mmol/L Potassium (3.5-5.1) mmol/L Chloride (98-107) mmol/L Carbon Dioxide (21-32) mmol/L Anion Gap (3-11) BUN (7-18) mg/dl Creatinine (0.6-1.4) mg/dl Est Cr Clr Drug Dosing ml/min Est GFR ( Amer) Est GFR (Non-Af Amer) BUN/Creatinine Ratio (10-20) Glucose (70-99) mg/dl Calcium (8.5-10.1) mg/dl Total Bilirubin (0.2-1) mg/dl AST (15-37) U/L ALT (12-78) U/L Alkaline Phosphatase (45-117) U/L Total Protein (6.4-8.2) gm/dl Albumin (3.4-5.0) gm/dl Globulin (2.5-4.0) gm/dl Albumin/Globulin Ratio (0.9-2) TSH (0.300-4.500) uIu/ml Urine Color Yellow Urine Appearance Clear (Clear) Urine pH 5.0 (4.5-7.5) Ur Specific [place] 1.016 (1.000-1.030) Urine Protein Negative (Negative) Urine Glucose (UA) Trace H (Negative) Urine Ketones Negative (Negative) Urine Blood Negative (Negative) Urine Nitrite Negative (Negative) Urine Bilirubin Negative (Negative) Urine Urobilinogen Negative (Negative) Ur Leukocyte Esterase Negative (Negative) Salicylates (2.8-20) mg/dl Urine Opiates Screen Neg (Neg) Ur Methadone, Qual Neg (Neg) Acetaminophen (10-30) ug/ml Urine Barbiturates Neg (Neg) Ur Phencyclidine (PCP) Neg (Neg) U Amphetamin/Meth Scrn Neg (Neg) MDMA (Ecstasy) Screen Neg (Neg) U Benzodiazepines Scrn Neg (Neg) Ur Cocaine Metabolite Neg (Neg) U Marijuana (THC) Screen Neg (Neg) Ethyl Alcohol mg/dL < 3.0 (0-3) mg/dl Administered Medications Discontinued Medications Haloperidol Lactate (Haloperidol Lactate 5 Mg/Ml 1 Ml Vial) Confirm Administered Dose 5 mg .ROUTE .STK-MED ONE Stop: 03/11/20 22:33 Last Admin: 03/11/20 22:48 Dose: Not Given Documented by: [id number] Haloperidol Lactate (Haloperidol Lactate 5 Mg/Ml 1 Ml Vial) 5 mg IV NOW STA Stop: 03/11/20 22:39 Last Admin: 03/11/20 22:47 Dose: 5 mg Documented by: [id number] Lorazepam (Ativan) 2 mg in 4 mls @ 4 mls/min IV NOW STA Stop: 03/11/20 22:39 Last Admin: 03/11/20 22:47 Dose: 4 mls/min Documented by: [id number] Lorazepam (Lorazepam 2 Mg/4 Ml Vial) Confirm Administered Dose 2 mg .ROUTE .STK- MED ONE Stop: 03/11/20 22:33 Last Admin: 03/11/20 22:48 Dose: Not Given Documented by: [id number] Discharge Plan Visit Data Chief Complaint: Mental Health Evaluation Stated Complaint: [facility] ED Provider: Terrence Ramirez Discharge Problem: Psychosis Patient Disposition: Still a Patient Forms Stand Alone Forms: [facility], Suicide Prevention Resources Prescriptions Prescriptions: No Action lisinopril 10 mg Tablet 10 mg PO QAM RF: 0 gabapentin 300 mg Capsule 300 mg PO QAM RF: 0 rosuvastatin 10 mg Tablet 5 mg PO QAM RF: 0 PreserVision Lutein 226 mg-200 unit -5 mg-0.8 mg Capsule 1 cap PO QAM RF: 0 docusate sodium 100 mg Capsule 100 mg PO BID Qty: 60 RF: 0 oxycodone 5 mg tablet 5 mg PO Q6H Qty: 60 RF: 0 metformin 500 mg tablet 500 mg PO BID RF: 0 Eliquis 5 mg tablet 5 mg PO QAM RF: 0 Referrals Referrals: PCP,NO [Primary Care Provider] -
[2020-03-11 23:31] LABS: Albumin Level 3.6 gm/dl (3.4-5.0); Bilirubin,Total 0.4 mg/dl (0.2-1); Creatinine Clr Calc Pharmacy 67.1 ml/min; Est GFR (African American) 77.9; Est GFR (Non-African American) 67.2; Thyroid Stimulating Hormone 1.89 uIu/ml (0.300-4.500)
[2020-03-12 00:01] LABS: Albumin Globulin Ratio 0.9 (0.9-2); BUN Creatinine Ratio 18.7 (10-20); Globulin 3.9 gm/dl (2.5-4.0); Total Protein 7.5 gm/dl (6.4-8.2)
[2020-03-12 00:28] LABS: Acetaminophen < 2 ug/ml (10-30); Salicylate 2.4 mg/dl (2.8-20)
[2020-03-12 01:02] LABS: Appearance Urine Clear (Clear); Bilirubin Urine Negative (Negative); Blood Urine Negative (Negative); Color Urine Yellow; Glucose Urine UA Trace (Negative); Ketones Urine Negative (Negative); Leukocyte Esterase Urine Negative (Negative); Nitrite Urine Negative (Negative); Protein Urine Negative (Negative); Specific Gravity Urine 1.016 (1.000-1.030); Urobilinogen Urine Negative (Negative)
[2020-03-12 01:25] LABS: Amphetamines+Metham, Urine Neg (Neg); Barbiturates, Urine Neg (Neg); Benzodiazepine, Urine Neg (Neg); Cocaine, Urine Neg (Neg); MDMA (Ecstacy), Urine Neg (Neg); Methadone, Urine Neg (Neg); Opiate, Urine Neg (Neg); Phencyclidine, Urine Neg (Neg)
--- NOTE | 2020-03-12 03:59 | Emergency Department Note ---
ED Visit Note Patient signed out to me at change of shift from Dr. Ramirez. Patient here with delusions and homicidal ideation. Patient comes here as a 302 warrant. Due to increased agitation, patient was previously given medication with this. A bed search was being performed at time of signout. In the process of trying to place the patient, because of the patient's advanced age several facilities requested additional studies be performed. CT head: Comparison 04/24/2013. No acute intracranial hemorrhage, edema or mass. 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 Mild periventricular white matter chronic small vessel ischemic changes. No extra-axial fluid collection. Intracranial atherosclerosis. No calvarial fracture. Mild right mastoiditis. Mild chronic sinus disease. Radiologist: Dex Jaime MD X-ray: I interpreted the following studies. Chest: A single view study of the chest was reviewed and was negative for cardiomegaly, no focal infiltrate, effusion, pulmonary edema, or wide mediastinum. Unchanged compared to prior. EKG: Sinus tachycardia at 108 with a first-degree AV block, normal QRS and QTc, normal axis, no acute ischemic changes 0900: Patient signed out to Dr. Rahman. Patient awaiting acceptance at a [facility] in transfer. . : Psychosis Qualifiers: Psychosis type: unspecified psychosis type Qualified Code(s): F29 - Unspecified psychosis not due to a substance or known physiological condition
--- NOTE | 2020-03-12 07:06 | CT Scan Report ---
CT head/brain wo con CLINICAL HISTORY: Acute change in mental status COMPARISON STUDY: 01/16/2019 TECHNIQUE: Axial CT of the brain is performed from the vertex to the skull base. IV contrast was not administered for this examination. A dose lowering technique was utilized adhering to the principles of ALARA. CT DOSE: 614.27 mGy.cm FINDINGS: No intra or extra-axial mass lesions are visualized. There is no CT evidence of acute cortical infarc tion. There is no evidence of midline shift. There is no acute hemorrhage. No calvarial fractures ar e visualized. There are patchy white matter hypodensities likely on a small vessel basis. There is an old infarct i nvolving portions of the left temporal parietal and occipital lobes. There is mild dilatation of the left occipital horn secondary to volume loss. There is a small right mastoid effusion. IMPRESSION: 1. No acute intracranial findings 2. Old post infarct changes within the left hemisphere. ACT 112: Negative or not required by law. Electronically signed by: Pablo Stack M.D. 03/12/2020 7:05 AM
--- NOTE | 2020-03-12 08:03 | XRay Report ---
XR chest 1V portable HISTORY: 69 years-old Male ams acutely altered mental status. Acute shortness of breath COMPARISON: Chest radiograph 11/12/2019 TECHNIQUE: Portable AP view of the chest FINDINGS: Cardiac silhouette is upper limits of normal in size. Reticular opacities are noted within the left g reater than right lung bases which are new from comparison. There is no pneumothorax, large pleural e ffusion or overt pulmonary edema. Degenerative changes of the shoulders and spine. IMPRESSION: Left greater than right bibasilar reticular opacities are new from comparison. Atelectasi s versus a mild nonspecific pneumonitis considered. ACT 112: Negative or not required by law. The above report was generated using voice recognition software. It may contain grammatical, syntax o r spelling errors. Electronically signed by: Dionisio Oseguera M.D. 03/12/2020 8:02 AM
[2020-03-12] MEDS ORDERED: LORazepam 2 MG/ML VIAL (IM USE) IM STA (10:30)
[2020-03-12] MEDS ORDERED: HALOPERIDOL LACTATE 5 MG/ML 1 ML VIAL IM STA (10:30)
--- NOTE | 2020-03-12 14:47 | Emergency Department Note ---
ED Visit Note The patient was signed out to me at shift change. The patient's bed search was suspended at this time. Will resume tomorrow. He was given some additional Haldol and Ativan as he was agitated here. . : Psychosis Qualifiers: Psychosis type: unspecified psychosis type Qualified Code(s): F29 - Unspecified psychosis not due to a substance or known physiological condition
--- NOTE | 2020-03-12 14:48 | Emergency Department Note ---
ED Visit Note Signed out to Dr. Babin at shift change. . : Psychosis Qualifiers: Psychosis type: unspecified psychosis type Qualified Code(s): F29 - Unspecified psychosis not due to a substance or known physiological condition
--- NOTE | 2020-03-12 14:55 | Emergency Department Note ---
ED Visit Note The patient was taken in signout from Dr. Rahman at the change of shift. Please see that note for details. The patient was pending bed search for 302. Currently suspended until tomorrow. The patient was reassessed. He was doing well and had dinner. Evening medications were ordered by the previous physician. The patient then started complaining of having aches and pains all over and wanted something for this. He was given oral Tylenol. Psychiatric assistant case manager did make an additional referral to [facility] in light of the still in bed search elsewhere. Patient was evaluated and was accepted to 3 S. . : Psychosis Qualifiers: Psychosis type: unspecified psychosis type Qualified Code(s): F29 - Unspecified psychosis not due to a substance or known physiological condition
[2020-03-12] MEDS ORDERED: ACETAMINOPHEN 500 MG TAB PO STA (18:09)
[2020-03-12] MEDS ORDERED: LORazepam 1 MG TAB SL PRN (18:16)
[2020-03-12] MEDS ORDERED: MAGNESIUM HYDROXIDE SUSP 30 ML UDC PO PRN (19:11)
[2020-03-12] MEDS ORDERED: ALUMINUM/MAGNESIUM SUSP 30 ML UDC PO PRN (19:11)
[2020-03-12] MEDS ORDERED: SODIUM CHLORIDE 0.65% NA SOLN 45 ML (OCEAN) PRN (19:11)
[2020-03-12] MEDS ORDERED: BISMUTH SUBSALICYLATE LIQD 236 ML PO PRN (19:11)
[2020-03-12] MEDS ORDERED: hydrOXYzine HCl 25 MG TAB PO PRN ×2 (19:11)
[2020-03-12] MEDS ORDERED: haloperidoL 5 MG TAB PO PRN (19:15)
[2020-03-12] MEDS ORDERED: PHARMACY GLYCEMIC MGMT CONSULT STA (19:21)
[2020-03-12] MEDS ORDERED: PHARMACY GLYCEMIC MGMT CONSULT PRN (19:45)
[2020-03-12] MEDS ORDERED: metFORMIN HCL 500 MG TAB PO SCH (21:00)
[2020-03-12] MEDS ORDERED: DOCUSATE SODIUM 100 MG CAP PO SCH (21:00)
[2020-03-12] MEDS ORDERED: APIXABAN 5 MG TABLET PO SCH (21:00)
[2020-03-12 21:12] VITALS: O2SAT 95
[2020-03-12] MEDS ORDERED: LORazepam 1 MG TAB PO PRN (21:38)
--- NOTE | 2020-03-13 06:26 | Electrocardiogram Report ---
Test Reason : Blood Pressure : / mmHG Vent. Rate : 108 BPM Atrial Rate : 108 BPM P-R Int : 218 ms QRS Dur : 090 ms QT Int : 328 ms P-R-T Axes : 060 017 056 degrees QTc Int : 439 ms Sinus tachycardia with 1st degree A-V block Otherwise normal ECG When compared with ECG of 12-NOV-2019 08:24, No significant change was found Confirmed by Cholo Duarte ([id number]) on 03/13/2020 6:25:41 AM Referred By: REFERRED SELF Confirmed By:Cholo Duarte
[2020-03-13] MEDS: ACETAMINOPHEN 325 MG TAB PO PRN (06:28)
[2020-03-13] MEDS ORDERED: CARBOHYDRATES FOR HYPOGLYCEMIA PO PRN (06:30)
[2020-03-13] MEDS ORDERED: DEXTROSE 50% 50 ML SYRINGE IV PRN (06:30)
[2020-03-13] MEDS ORDERED: GLUCOSE 40% GEL 15 GM TUBE PO PRN (06:30)
[2020-03-13] MEDS ORDERED: GLUCAGON FOR INJ 1 MG VIAL IM PRN (06:30)
[2020-03-13] MEDS ORDERED: GLUCOSE 10 TABS/TUBE PO PRN (06:30)
[2020-03-13] MEDS ORDERED: INSULIN ASPART 100 UNITS/ML 3 ML PEN SC SCH (08:00)
[2020-03-13] MEDS ORDERED: ROSUVASTATIN CALCIUM 10 MG TAB PO SCH (09:00)
[2020-03-13] MEDS ORDERED: lisinopril 10 MG TAB PO SCH (09:00)
[2020-03-13] MEDS ORDERED: GABAPENTIN 300 MG CAP PO SCH (09:00)
[2020-03-13] MEDS ORDERED: ASPIRIN 81 MG ECTAB PO SCH (09:00)
--- NOTE | 2020-03-13 09:29 | History & Physical ---
Date of Service March 13, 2020 Impression / Recommendations Impression 69-year-old male admitted involuntarily for inpatient psychiatric treatment on 03/12/2020 after presenting to the ED on a 302 Box B warrant. Police had been called to the patient's home after a phone conversation with a CCR post tensioning ironworker helper revealed delusions "above his typical baseline" and threats toward a seemingly unknown individual that "he was going to get a gun to 'take care of him' if he didn't stop the Scientologist." 302 was upheld in the ED due to patient becoming agitated, yelling at staff, and swinging his cane around - was given haloperidol 5mg and Ativan 1mg for agitation. On admission, the patient states that he does not know why he is here and he requests to return home, stating he "didn't say nothing, I didn't hurt nobody." Pt did eventually divulge continued delusions that a man at his previous residence is using "Scientologist rosa or something" to cause the patient harm. These delusions had been reported at least one year ago. Pt diagnosed at this time with psychosis NOS - differential include delusional disorder, neurocognitive dementing process, delirium, or residual effects of CVA, as well as other possibilities. Pt was started on sertraline to target the obsessive/ruminative nature of his delusional beliefs and to improve mood/irritability. Given the duration of these delusions, resolution of the beliefs is not likely the goal of treatment. We will, however, focus on obtaining collateral information and discussing steps to allow for safety and appropriate discharge back to his assisted living facility. At this time, patient is still irritable and continues to be at acute risk of harm to himself or others. Inpatient psychiatric treatment is medically necessary at this time, as it is the least restrictive and most appropriate setting for treatment given his behavior at presentation. Dr. Sp March was directly involved in review and discussion of the patient's case and participated in medical decision making regarding treatment recommen dations. (1) Psychosis: 03/13 - Admitted to [facility] unit on q15 minute safety checks. MNPR due to homicidal statements prior to admission. - Working diagnosis of psychosis NOS, differential includes: delusional disorder, onset of neurocognitive dementing process, delirium, or residual effects from previous CVA. Will repeat CMP when agreeable as potassium could not be recorded due to hemolysis (refusing additional bloodwork at this time) - results obtained do not indicate metabolic abnormalities, overt concern for UTI, or substance use (UDS negative). - MMSE was attempted (though patient did refuse several parts of exam) - scored 10/24 for parts completed. Additional testing with a MoCA may be beneficial if patient is cooperative with testing. - These particular delusions have been ongoing for at least a year (seen on consult service in 03/2019 with identical reports), and may have been ongoing even before that time. Though the direct cause is uncertain, the duration of these delusions suggests they may not be robustly amenable to antipsychotic medications. Pt did agree to a trial of an SSRI which will ideally target the obsessive/ruminative nature of the delusions and promote improved mood. Risks, benefits, and potential side effects of sertraline were reviewed. Pt will begin with 25mg dose today, then increase to 50mg qAM with further titration as indicated/tolerated. - We will attempt to gather collateral information from his assisted living facility regarding behavior prior to admission and ideally additional information about his mental health history. - Pt will be encouraged to participate with group and recreational programming while on the unit. - Will discuss appropriate outpatient psychiatric referrals - patient currently declining psychiatry or therapy, but agreeing to case management referral. - Will request patient complete a safety plan prior to discharge Psychosis type: unspecified psychosis type Qualified Code(s): F29 - Unspecified psychosis not due to a substance or known physiological condition (2) Diabetes: 03/13 - Pt has reportedly been maintained on metformin - denies routine blood sugar checks at home. - Pt refused repeat A1c ordered for today - most recent in 11/2019 was 7.9% - Pt agreed to switching to extended-release metformin and increasing dosing to 1000mg BID - Pt refusing AccuChecks - Follow-up with PCP to discuss any additional treatment recommendations Diabetes mellitus type: type 2 (3) Peripheral vascular disease: - Continue home doses of gabapentin, Eliquis, and follow-up as needed with outpatient providers (4) CVA (cerebral infarction): 03/13 - Continue home doses of Eliquis and aspirin - Follow-up as needed with outpatient providers (5) HTN (hypertension): 03/13 - Continue home dose of lisinopril (6) Hyperlipidemia: 03/13 - Continue home dose of rosuvastatin Risk Factors Assessment Do You Have Access To A Gun?: No Protective Factors Assessment Employed: No (Disabled) Psychiatric History Identifying Data YASMANY JAMES is a 69-year-old M who currently lives in [place] in an assisted living facility. He has no known history of psychiatric diagnoses but was last seen by our service in 03/2019 for similar delusions. He was admitted on 03/12/20 19:11 on a 302 involuntary commitment for delusions that a man in his old apartment is using Scientologist against him, and making threatening statements to use a gun to harm the individual. Chief Complaint "I hope I'm not here too long, let's just get this over with. I don't even know what happened, I don't know why I'm here." History of Present Illness Yasmany James (Phil) is a 69-year-old male admitted involuntarily for inpatient psychiatric treatment on 03/12/2020 after being brought to the ED on a 302 [address] warrant. 302 petitioning statement was completed by CRR post tensioning ironworker helper, warrant granted and patient was brought to the ED by police. Statement reads: "This crisis program facilitator spoke to Yasmany on the phone on 03/11/2020 at 5:02pm at the request of the [facility] nurse. Yasmany was highly agitated and delusional above his typical baseline. He stated he hasn't been eating or sleeping because of an individual where he used to live is performing yarsanism on him. He reported this individual's location as [address] floor of [facility] and stated that he was going to get a gun to "take care of him" if he didn't stop the yarsanism." In the ED, the patient was reportedly frustrated and did not feel he needed to be in the hospital. Behavior did escalate and he began yelling and swearing at staff and waving his cane. Pt did receive lorazepam 1mg and haloperidol 5mg for agitation in the ED. Laboratory work-up did not demonstrate overt evidence of electrolyte abnormality (K+ not obtained due to hemolysis, patient refusing repeat), UTI, concern for substance use, or CT changes (comparison study from 01/2019). Pt does have history of CVA from [address] shows "old post infarct changes within the left hemisphere". On admission to our unit patient was reportedly cooperative and has been sleeping through the night. Pt was guarded but superficially cooperative with psychiatric evaluation today. His presentation is somewhat abrasive, but his frustration is not direct toward this provider or any particular individuals. He simply reports "I hope I'm not here too long, let's just get this over with. I don't even know what happened, I don't know why I'm here." For the duration of our conversation, the patient responds to nearly all questions with "I don't know" or "I can't remember." Through repeated questioning, patient is able to clarify his understanding of a few details. He is able to acknowledge a call with a female ("Some lady called me and said something to me. I don't know who she is or where she's from") prior to admission. He was later able to recall "yeah, she did ask me if I was thinking about hurting myself or anyone else. I just kept saying 'no. no. no. no.' I didn't want to be bothered." Pt states he was caught off guard when police arrived at his home and he is still unsure as to what the concern is that brought him to the ED. Pt went on for nearly 20 minutes without being able to provide any additional pertinent details. Through more superficial convers ation, patient eventually admitted that he had previously resided at [facility] where "a nicola from there has been messing with me." He states that the man - "I don't even know his name" - has been using "yarsanism or some power" to inflict harm onto the patient. Pt was seen for this complaint during a consult with our service in 03/2019 when he believed the man was causing the PVD of his lower extremities. Pt is unable to provide any specific behaviors he believes the man is doing, but simply states "he keeps messing with me." Pt states he did recently move to a new building, but continues to be influenced by this individual. Pt states the maintenance people at [facility] are also involved in the plan and "I had to get away from that stuff." Pt admits he does not like his current residence due to a dripping shower and "poor repairs", but denies any new concerns related to harassment. Pt denies SI/HI and states "I don't want to hurt nobody, I just want to be left alone." Pt states that if these things continue, he is likely going to "move back to [place]", though he is concerned about his ability to afford the cost of living if he were to move. Pt estimates he spends between 50 - 85% of his day being concerned about the "yarsanism" and reports it is affecting his sleep, mood, and occasionally appetite. Although initially resistant, the patient did express willingness to discuss medication options to target his mood and anxiety. Pt simultaneously denies mental health history, but then also states "I've been through all that already, I don't remember any of it." He does not, at this time, report any history consistent with depression, anxiety, symptoms suggestive of a bipolar presentation, OCD, PTSD, eating disorder, or other specific psychiatric symptoms. The patient does give the impression that he has some level of assistance at his apartment, at least with medication management (possibly as much as twice a day per his vague reports). Otherwise, he denies local supports or family with whom we can communicate. He reports having friends in [place] that he talks to on the phone somewhat regularly, but states living with them would not be an option. Pt denies specific thoughts to harm this man at [facility] at this time, and reiterates "I just want to get out of here and be left alone." Pt denied other needs at this time. Past Psychiatric History Previous Psych History: Pt was seen by our service for very similar presentation in 03/2019 during a medical admission. Documentation from that consultation suggests the patient was first seen by our service in 05/2013 for agitation following a CVA. Even at that time, family/supports were unable to be found and little history was known about the patient. He received lorazepam and quetiapine 50mg BID at that time. It does not appear that any psychotropic medications have been prescribed as an outpatient. Pt, himself, denies any history of psychiatric diagnoses. Current Psychiatric Diagnosis: Denies mental health history Outpatient Services: None Previous Psych Admissions: None Do You Have Access To A Gun?: No History of Previous Suicide Attempt: No Describe Attempts in the Past: None Past Medication Trials: Previous records suggest patient received lorazepam and quetiapine for agitation during a hospital admission in 2013. No known outpatient psychotropic prescriptions. Past Head Trauma/Neuro History History of Concussion/Seizure: No Allergies Allergy/AdvReac Type Severity Reaction Status Date / Time No Known Allergies Allergy Unverified 11/12/19 08:17 Home Medications Medication Instructions Recorded Confirmed Type PreserVision Lutein 1 cap PO QAM 09/27/19 03/12/20 History gabapentin 300 mg PO QAM 09/27/19 03/12/20 History lisinopril 10 mg PO QAM 09/27/19 03/12/20 History rosuvastatin 5 mg PO QAM 09/27/19 03/12/20 History Eliquis 5 mg PO BID 10/17/19 03/12/20 History metformin 500 mg PO BID 10/17/19 03/12/20 History docusate sodium 100 mg PO BID #60 cap 11/18/19 03/12/20 Rx aspirin 81 mg PO QAM 03/12/20 03/12/20 History Family History Family History of: None (or unknown) Alcohol History Hx of Alcohol Use Over the Past 12 Months: No AUDIT Total Score: 0 Admits to heavy alcohol use "in my teens" denies recent alcohol consumption. Smoking Use Have You Smoked or Used Tobacco Products in the Last 30 Days: Yes tobacco type: cigarettes Smoking Status: Current some day smoker ("2 cigarettes every couple days" - previously heavy smoker) Smoking packs per day: 0.1 Substance History Hx of Prescription Med Misuse Over the Past 12 Months: No Hx of Over the Counter Med Misuse Over the Past 12 Months: No Hx of Inhalent Misuse Over the Past 12 Months: No Hx of Organic Substance Use Over the Past 12 Months: No Hx of Illegal Substances/Street Drug Use Over Past 12 Months: No Problems as a Result of Past Substance Use: None Identified Denies use of illicit substances or abuse of prescription medications. Personal History Living Arrangements: Apartment (Independent living at [facility]) Highest Grade Completed: Did Not Graduate High School (believes he at least completed 11th grade ) Employment Status: Retired Marital Status: Single (Never ) Number Of Children: None Beliefs That Will Affect Care: None Current Legal Problems: No Hx Legal Problems: No ("nah, nothing like that, I can't even remember") Hx Traumatic Life Events: No Patient History Medical History CVA (cerebral infarction) 2016 - NO RESIDUAL EFFECTS AND TAKES ELIQUIS Diabetes On Metformin HTN (hypertension) Hyperlipidemia Ischemic leg pain Peripheral vascular disease Surgical History Hx of colonoscopy S/P femoral-femoral bypass surgery LEFT Family History Other Family history non-contributory Social History Smoking Status: Current some day smoker ("2 cigarettes every couple days" - previously heavy smoker) Tobacco Type: Cigarettes Cigarettes Per Day: A FEW A DAY; Second Hand Exposure: No; Hx Alcohol Use: No Hx Substance Use: No Preferred Language: Malagasy Communication Ability: Effective Route Sales Associate Required: No Beliefs That Will Affect Care: None marital status: Single Current Living Situation: Alone How many Children do You have: 0 Feels Safe at Home: Yes Assistive Devices: Cane and Glasses Review of Systems Review of Systems: Constitutional: denied Cardiovascular: denied Respiratory: denied Gastrointestinal: denied Neurological: denied Musculoskeletal: reports vague complaints in arms bilaterally (compares to pain experienced in leg previously) Psychiatric: denies symptoms other than stated above Total of at least 10 systems reviewed, pertinent positives as above and in HPI. Physical Exam Psychiatric: Orientation: alert and + guarded (superficially cooperative, poor historian ) oriented to person; hospital placement, but not city or county; month and day of week, but not year or date. Apperance: appropriately dressed, appropriately groomed and appeared stated age Obese male, seated on bed appearing frustrated but not in acute distress. Pt is appropriately dressed for clinical setting, still wearing paper scrubs. He has very short hankins hair, level of grooming appears appropriate. Eye Contact: + fair eye contact Motor Behavior: steady gait and station (ambulates with cane) and no abnormal motor movements Speech: normal rate/rhythm/volume of speech (somewhat thick [place] accent; irritable tone) Affect: + irritable affect Mood: + depressed mood and + irritable mood Thought Process: goal directed thought process and + concrete thought process Thought Content: + delusions and + hopelessness (not convinced the yarsanism will stop) Suicidal Thoughts: denies suicidal thoughts and denies suicidal intent Homicidal Thoughts: denies homicidal thoughts but did verbalize homicidal statements prior to admission, aggression/violence in ED Hallucinations: no auditory hallucinations and no visual hallucinations Cognition: attention grossly intact and language grossly intact; + recent memory not intact Estimated Intelligence: consistent with education level Insight: + impaired insight Judgement: + impaired judgement Vital Signs (Past 24 Hours): Last Vital Signs Temp 36.6 C 03/13/20 06:34 Pulse 112 H 03/13/20 06:34 Resp 16 03/13/20 06:34 BP 116/71 03/13/20 06:34 Pulse Ox 95 03/12/20 21:11 Exam Statement: A physical exam was performed in the ER prior to admission to the unit by Dr. Terrence Ramirez MD. I accept that physical as correct/medical clearance for the inpatient physical exam. Results & Data (U) Current Inpatient Medications Current Inpatient Medications: Current Inpatient Medications Acetaminophen (Acetaminophen 325 Mg Tab) 650 mg PO Q4H PRN PRN Reason: Headache or Minor Fever Stop: 04/11/20 19:10 Last Admin: 03/13/20 06:28 Dose: 650 mg Documented by: Al Hydrox/Mg Hydrox/Simethicone (Aluminum/Magnesium Susp 30 Ml Udc) 30 ml PO Q4H PRN PRN Reason: GI Upset Stop: 04/11/20 19:10 Bismuth Subsalicylate (Bismuth Subsalicylate Liqd 236 Ml) 15 ml PO PRN PRN PRN Reason: Loose Stool Stop: 04/11/20 19:10 Dextrose (Dextrose 50% 50 Ml Syringe) 25 - 50 ml IV UD PRN; Protocol PRN Reason: Hypoglycemia Protocol Stop: 04/12/20 06:29 Glucagon (Glucagon For Inj 1 Mg Vial) 1 mg IM UD PRN; Protocol PRN Reason: Hypoglycemia Protocol Stop: 04/12/20 06:29 Glucose (Glucose 40% Gel 15 Gm Tube) 15 - 30 gm PO UD PRN; Protocol PRN Reason: Hypoglycemia Protocol Stop: 04/12/20 06:29 Glucose (Glucose 10 Tabs/Tube) 4 - 8 tabs PO UD PRN; Protocol PRN Reason: Hypoglycemia Protocol Stop: 04/12/20 06:29 Haloperidol (Haloperidol 5 Mg Tab) 5 mg PO Q4 PRN PRN Reason: Agitation Stop: 03/19/20 19:14 Last Admin: 03/12/20 21:08 Dose: 5 mg Documented by: Hydroxyzine HCl (Hydroxyzine Hcl 25 Mg Tab) 50 mg PO HSZ PRN PRN Reason: Insomnia Stop: 04/11/20 19:10 Hydroxyzine HCl (Hydroxyzine Hcl 25 Mg Tab) 25 mg PO Q4H PRN PRN Reason: Anxiety Stop: 04/11/20 19:10 Insulin Aspart (Insulin Aspart 100 Units/Ml 3 Ml Pen) 0 units SC ACHS SCOTT Stop: 04/12/20 07:59 Lorazepam (Lorazepam 1 Mg Tab) 1 mg PO Q4H PRN PRN Reason: Agitation Stop: 04/11/20 21:37 Magnesium Hydroxide (Magnesium Hydroxide Susp 30 Ml Udc) 30 ml PO DAILY PRN PRN Reason: Constipation Stop: 04/11/20 19:10 Miscellaneous (Carbohydrates For Hypoglycemia ) 15 - 30 gm PO UD PRN PRN Reason: Hypoglycemia Treatment Stop: 04/12/20 06:29 Miscellaneous Information (Pharmacy Glycemic Mgmt Consult) 1 ea N/A UD PRN PRN Reason: Consult Stop: 04/11/20 19:44 Sodium Chloride (Sodium Chloride 0.65% Na Soln 45 Ml (Turner)) 1 - 2 sprays NA PRN PRN PRN Reason: Nasal Dryness/Congestion Stop: 04/11/20 19:10
--- NOTE | 2020-03-13 10:06 | Pharmacy Report ---
Pharmacy Glycemic Sign Off Nt - Date of Service March 13, 2020 - Assessment & Plan ASSESSMENT: * Pharmacy was consulted for glycemic control and to write orders per [facility] inpatient glycemic control protocol. * Spoke to RN and patient refusing accuchecks. Insulin orders discontinued by provider this AM. Restarted home metformin. PLAN FOR INPATIENT GLYCEMIC CONTROL: * Could consider daily accuchecks if patient agreeable. If not, reasonable to continue home metformin * Pharmacy is signing off of glycemic consult and will no longer be making adjustments to inpatient regimen. Please feel free to re-consult if needed. Thank you. DISCHARGE RECOMMENDATIONS: * A1c 7.9 % on 11/2019 - continue home metformin as long as no contraindications present on discharge
[2020-03-13] MEDS ORDERED: metFORMIN HCL 500 MG TAB PO SCH ×2 (11:40→17:45)
[2020-03-13] MEDS ORDERED: SERTRALINE HCL 50 MG TABLET PO ONE (11:47)
[2020-03-13] MEDS: DOCUSATE SODIUM 100 MG CAP PO SCH ×2 (12:23→20:52)
[2020-03-13] MEDS: GABAPENTIN 300 MG CAP PO SCH (12:23)
[2020-03-13] MEDS: APIXABAN 5 MG TABLET PO SCH ×2 (12:23→20:50)
[2020-03-13] MEDS: ROSUVASTATIN CALCIUM 5 MG TAB PO SCH (12:24)
[2020-03-13] MEDS: ASPIRIN 81 MG ECTAB PO SCH (12:24)
[2020-03-13] MEDS: lisinopril 10 MG TAB PO SCH (12:24)
[2020-03-13] MEDS: metFORMIN HCL ER 500 MG TABCR PO SCH (17:27)
--- NOTE | 2020-03-14 06:34 | Psychiatric Progress Note ---
Date of Service March 14, 2020 Impression / Recommendations Impression 69-year-old male admitted involuntarily for inpatient psychiatric treatment on 03/12/2020 with delusions of persecution and threats toward a seemingly unknown individual that "he was going to get a gun to 'take care of him' if he didn't stop the [employer]." 302 was upheld in the ED due to patient becoming agitated, yelling at staff, and swinging his cane around. On admission, the patient st ates that he does not know why he is here and he requests to return home. He has had the delusions for at least a year, and has been diagnosed with psychosis NOS; differential include delusional disorder, neurocognitive dementing process, delirium. He refused antipsychotic medication but was started on sertraline to target the obsessive/ruminative nature of his delusional beliefs and to improve mood/irritability. We will focus on obtaining collateral information and discussing steps to allow for safety and appropriate discharge back to his assisted living facility. Inpatient psychiatric treatment is medically necessary at this time, as it is the least restrictive and most appropriate setting for treatment given his behavior at presentation. (1) Psychosis: 03/13 - Admitted to locked behavioral health unit on q15 minute safety checks. MNPR due to homicidal statements prior to admission. - Working diagnosis of psychosis NOS, differential includes: delusional disorder, onset of neurocognitive dementing process, delirium, or residual effects from previous CVA. Will repeat CMP when agreeable as potassium could not be recorded due to hemolysis (refusing additional bloodwork at this time) - results obtained do not indicate metabolic abnormalities, overt concern for UTI, or substance use (UDS negative). - MMSE was attempted (though patient did refuse several parts of exam) - scored 10/24 for parts completed. Additional testing with a MoCA may be beneficial if patient is cooperative with testing. - These particular delusions have been ongoing for at least a year (seen on consult service in 03/2019 with identical reports), and may have been ongoing even before that time. Though the direct cause is uncertain, the duration of these delusions suggests they may not be robustly amenable to antipsychotic medications. Pt did agree to a trial of an SSRI which will ideally target the obsessive/ruminative nature of the delusions and promote improved mood. Risks, benefits, and potential side effects of sertraline were reviewed. Pt will begin with 25mg dose today, then increase to 50mg qAM with further titration as indicated/tolerated. - We will attempt to gather collateral information from his assisted living facility regarding behavior prior to admission and ideally additional information about his mental health history. - Pt will be encouraged to participate with group and recreational programming while on the unit. - Will discuss appropriate outpatient psychiatric referrals - patient currently declining psychiatry or therapy, but agreeing to case management referral. - Will request patient complete a safety plan prior to discharge. 03/14 -Patient remains delusional, paranoid, angry, and uncooperative. He is refusing almost all treatment recommendations, including antipsychotic medication, follow-up with outpatient mental health services, labwork. He is unable to explain events that led to his admission. Called [facility] to try to clarify, as per 302 a nurse there initiated the 302 by contacting crisis- spoke to [facility] office staff and they said a high risk case manager there spoke with him and initiated the crisis evaluation, but did not know what and said they didn't have access to that information. Will need to coordinate with his PCP Dr. Gonzalez p/t discharge. -Continue sertraline, increased to 50mg daily today. Although he is refusing olanzapine, I will order a low dose scheduled and prn dose to target psychosis and agitated, and encourage him to try it. -Discussed with social service director that as he has no supports, family, friends, high risk case manager etc to assist in discharge safety plan, and made threats to harm an individual per 302 petition, that we will need to attempt to notify that individual of his threat, and can contact police to assist as we do not know his name or contact information, but patient states police have been involved and may know this information. Patient denies access to guns. (2) Diabetes: 03/13 - Pt has reportedly been maintained on metformin - denies routine blood sugar checks at home. - Pt refused repeat A1c ordered for today - most recent in 11/2019 was 7.9% - Pt agreed to switching to extended-release metformin and increasing dosing to 1000mg BID - Pt refusing AccuChecks - Follow-up with PCP to discuss any additional treatment recommendations 03/14 - Pt refusing increased dose of metformin and blood sugar checks, labs. He demonstrates lack of insight into his condition and the need for treatment. (3) Peripheral vascular disease: - Continue home doses of gabapentin, Eliquis, and follow-up as needed with outpatient providers (4) CVA (cerebral infarction): 03/13 - Continue home doses of Eliquis and aspirin - Follow-up as needed with outpatient providers (5) HTN (hypertension): 03/13 - Continue home dose of lisinopril (6) Hyperlipidemia: 03/13 - Continue home dose of rosuvastatin Risk Factors Assessment Male: Yes : Yes Do You Have Access To A Gun?: No Health Problems: Yes Mental Health Diagnoses: Yes Substance Use Disorders: No Previous Attempt: No Family History of Suicide: No Previous Psychiatric Hospitalization: No Hopelessness: No Smoker: No Protective Factors Assessment : No Responsible for Young Children: No Employed: No (Disabled) Interval History Chief Complaint "I wanna talk to you, I wanna go home, this is some BS!" Review of Systems Sleep Information Total Hours of Sleep: 1.5 Sleep Comments: pt on q-15 minute checks Meal Information Percent Meal Consumed - Dinner: 100 Subjective Subjective Patient was seen & assessed and interval progress reviewed with nursing and social work. Staff report he is going to groups, saying he thinks his thoughts are clear, and refusing antipsychotic and recommendations for a psychiatrist. He is also refusing to allow blood draws for repeat labs. Social work spoke to his building official who stated he can return home. He states he has no friends, family, or supports. On my assessment, he is angry, ranting, demanding to leave. He says he has no idea why he is here, and that no one has explained to him why he is here, and denies any knowledge of why anyone would have been concerned about his behavior. He denies being at [facility] or talking to a nurse there initially, then says he saw his PCP "last week" and may have seen him the day of admission. He repeatedly states he "didn't do nothing wrong, they're doing this to me, it's disgusting!" He says he "had a rough time down there (in the ER), they were shooting me up! They were real nasty, throwing me around, I wanna go home, I've had enough, enough is enough!" When attempted to review the information in his 302, he interrupts to yell "it's a lie! They're lying! It's terrible what they did, it's disgusting, if this is what's going on in this country, that's disgusting!" When asked about his concerns about [employer], he says "that was months ago," then says there is an individual at his old residence who is "doing [employer] on me" and "torturing me day and night." He is unable to give more detailed information, repeatedly saying "it's weird, I can't explain it, just weird stuff, he's weird!" At one point he makes loud humming noises and swings his arm around demonstrating what he is experiencing, but then denies that he is hearing noises. When encouraged to notify staff when this is happening so that we can better understand, he says "no one else can see it, just me!" He says it has been going on for 8 months, and repeatedly says it is "hard to explain." He says "a nicola for maintenance told him to stop it, and he won't. It's disgusting, it's terrible, all kinds of weird things." He repeatedly states that the police will not do anything even though he has told him this is going on, but denies that he ever threatened to kill this person. He says that if he were released he would "not gonna worry about it, there's nothing I can do." He says he spends his days "going out shopping for different things I need, jackets and stuff." He says he has no supports, no friends or family, "I don't need anyone but myself." He denies access to guns. He continues to demand to leave immediately, even after explaining several times that he is here on an involuntary commitment and will not be discharged today. He continues to adamantly refuse to allow blood draws, and to take the increased dose of Metformin, consider an antipsychotic, or allow referral for outpatient mental health treatment, stating he does not need any of these things. Physical Exam Psychiatric Orientation: alert; + uncooperative Overweight white male appearing his stated age. Casually dressed in jeans and a T-shirt, head is shaved and has short facial stubble. Wearing glasses, seated in no acute distress. Agitated and gesticulating wildly, yelling, ranting angrily. Eye Contact: + poor eye contact Motor Behavior: steady gait and station and + psychomotor agitation Angry, loud, irate. Affect: + irritable affect, + angry affect and + constricted affect; + mood not congruent with affect "I'm fine!" Thought Process: + tangential thought process and + perseveration Thought Content: + preoccupation, + paranoid, + delusions and + persecution Suicidal Thoughts: denies suicidal thoughts Homicidal Thoughts: denies homicidal thoughts Denies that he threatened to get a gun and kill the man he believes is targeting him with [employer] Hallucinations: + auditory hallucinations Reports hearing and seeing strange things that lead him to believe [employer] is being performed on him. Cognition: language grossly intact; + recent memory not intact and + attention not intact Estimated Intelligence: + below average estimated intelligence Insight: + poor insight Judgement: + poor judgement Vital Signs (Past 24 Hours) Last Vital Signs Temp 36.5 C 03/14/20 06:26 Pulse 109 H 03/14/20 06:26 Resp 18 03/14/20 06:26 BP 142/75 H 03/14/20 06:26 Pulse Ox 95 03/12/20 21:11 Results & Data ([facility]) Current Inpatient Medications Current Inpatient Medications: Current Inpatient Medications Acetaminophen (Acetaminophen 325 Mg Tab) 650 mg PO Q4H PRN PRN Reason: Headache or Minor Fever Stop: 04/11/20 19:10 Last Admin: 03/13/20 06:28 Dose: 650 mg Documented by: Al Hydrox/Mg Hydrox/Simethicone (Aluminum/Magnesium Susp 30 Ml Udc) 30 ml PO Q4H PRN PRN Reason: GI Upset Stop: 04/11/20 19:10 Apixaban (Apixaban 5 Mg Tablet) 5 mg PO BID [facility] Stop: 04/12/20 11:39 Last Admin: 03/13/20 20:50 Dose: 5 mg Documented by: Aspirin (Aspirin 81 Mg Ectab) 81 mg PO QAM [facility] Stop: 04/12/20 11:44 Last Admin: 03/13/20 12:24 Dose: 81 mg Documented by: Bismuth Subsalicylate (Bismuth Subsalicylate Liqd 236 Ml) 15 ml PO PRN PRN PRN Reason: Loose Stool Stop: 04/11/20 19:10 Dextrose (Dextrose 50% 50 Ml Syringe) 25 - 50 ml IV UD PRN; Protocol PRN Reason: Hypoglycemia Protocol Stop: 04/12/20 06:29 Docusate Sodium (Docusate Sodium 100 Mg Cap) 100 mg PO BID [facility] Stop: 04/12/20 11:39 Last Admin: 03/13/20 20:52 Dose: Not Given Documented by: Gabapentin (Gabapentin 300 Mg Cap) 300 mg PO QAM [facility] Stop: 04/12/20 11:39 Last Admin: 03/13/20 12:23 Dose: 300 mg Documented by: Glucagon (Glucagon For Inj 1 Mg Vial) 1 mg IM UD PRN; Protocol PRN Reason: Hypoglycemia Protocol Stop: 04/12/20 06:29 Glucose (Glucose 40% Gel 15 Gm Tube) 15 - 30 gm PO UD PRN; Protocol PRN Reason: Hypoglycemia Protocol Stop: 04/12/20 06:29 Glucose (Glucose 10 Tabs/Tube) 4 - 8 tabs PO UD PRN; Protocol PRN Reason: Hypoglycemia Protocol Stop: 04/12/20 06:29 Haloperidol (Haloperidol 5 Mg Tab) 5 mg PO Q4 PRN PRN Reason: Agitation Stop: 03/19/20 19:14 Last Admin: 03/12/20 21:08 Dose: 5 mg Documented by: Hydroxyzine HCl (Hydroxyzine Hcl 25 Mg Tab) 50 mg PO HSZ PRN PRN Reason: Insomnia Stop: 04/11/20 19:10 Hydroxyzine HCl (Hydroxyzine Hcl 25 Mg Tab) 25 mg PO Q4H PRN PRN Reason: Anxiety Stop: 04/11/20 19:10 Lisinopril (Lisinopril 10 Mg Tab) 10 mg PO QAM [facility] Stop: 04/12/20 11:39 Last Admin: 03/13/20 12:24 Dose: 10 mg Documented by: Lorazepam (Lorazepam 1 Mg Tab) 1 mg PO Q4H PRN PRN Reason: Agitation Stop: 04/11/20 21:37 Magnesium Hydroxide (Magnesium Hydroxide Susp 30 Ml Udc) 30 ml PO DAILY PRN PRN Reason: Constipation Stop: 04/11/20 19:10 Metformin HCl (Metformin Hcl Er 500 Mg Tabcr) 1,000 mg PO BIDM [facility] Stop: 04/12/20 17:44 Last Admin: 03/13/20 17:27 Dose: 500 mg Documented by: Miscellaneous (Carbohydrates For Hypoglycemia ) 15 - 30 gm PO UD PRN PRN Reason: Hypoglycemia Treatment Stop: 04/12/20 06:29 Rosuvastatin Calcium (Rosuvastatin Calcium 5 Mg Tab) 5 mg PO QAM [facility] Stop: 04/12/20 11:44 Last Admin: 03/13/20 12:24 Dose: 5 mg Documented by: Sertraline HCl (Sertraline Hcl 50 Mg Tablet) 50 mg PO QAM [facility] Stop: 04/13/20 08:59 Sodium Chloride (Sodium Chloride 0.65% Na Soln 45 Ml ([place])) 1 - 2 sprays NA PRN PRN PRN Reason: Nasal Dryness/Congestion Stop: 04/11/20 19:10 Mental Health & Subst Abuse Tx Therapist Name of Therapist: None Ghost Writer Name of Ghost Writer: None Post Discharge Appointments Primary Care Physician Name Of Family Doctor: Donny Gonzalez Primary [facility] Time of Appointment with PCP: Will call to schedule you with an appt Provider Appointment Comment: [facility] Contact Information Discharge Discharge [address]: [address] [place] [id number] (1) Diabetes Diabetes mellitus type: type 2 (2) Psychosis Psychosis type: unspecified psychosis type Qualified Code(s): F29 - Unspecified psychosis not due to a substance or known physiological condition
[2020-03-14] MEDS: ASPIRIN 81 MG ECTAB PO SCH (08:34)
[2020-03-14] MEDS: ROSUVASTATIN CALCIUM 5 MG TAB PO SCH (08:34)
[2020-03-14] MEDS: APIXABAN 5 MG TABLET PO SCH ×2 (08:34→20:12)
[2020-03-14] MEDS: lisinopril 10 MG TAB PO SCH (08:35)
[2020-03-14] MEDS: GABAPENTIN 300 MG CAP PO SCH (08:35)
[2020-03-14] MEDS: metFORMIN HCL ER 500 MG TABCR PO SCH ×2 (08:35→17:06)
[2020-03-14] MEDS: SERTRALINE HCL 50 MG TABLET PO SCH (08:36)
[2020-03-14] MEDS: DOCUSATE SODIUM 100 MG CAP PO SCH ×2 (08:42→20:14)
[2020-03-14] MEDS ORDERED: OLANZAPINE 2.5 MG TAB PO PRN (10:26)
[2020-03-14] MEDS: OLANZAPINE 2.5 MG TAB PO SCH (20:12)
[2020-03-14] MEDS: ACETAMINOPHEN 325 MG TAB PO PRN (21:23)
[2020-03-15] MEDS: ROSUVASTATIN CALCIUM 5 MG TAB PO SCH (08:12)
[2020-03-15] MEDS: metFORMIN HCL ER 500 MG TABCR PO SCH ×3 (08:13→17:15)
[2020-03-15] MEDS: APIXABAN 5 MG TABLET PO SCH ×2 (08:13→20:16)
[2020-03-15] MEDS: SERTRALINE HCL 50 MG TABLET PO SCH (08:14)
[2020-03-15] MEDS: GABAPENTIN 300 MG CAP PO SCH (08:14)
[2020-03-15] MEDS: lisinopril 10 MG TAB PO SCH (08:16)
[2020-03-15] MEDS: ASPIRIN 81 MG ECTAB PO SCH (08:16)
[2020-03-15] MEDS: DOCUSATE SODIUM 100 MG CAP PO SCH ×2 (08:17→20:20)
--- NOTE | 2020-03-15 08:38 | Psychiatric Progress Note ---
Date of Service March 15, 2020 Impression / Recommendations Impression 69-year-old male admitted involuntarily for inpatient psychiatric treatment on 03/12/2020 with delusions of persecution and threats toward a seemingly unknown individual that "he was going to get a gun to 'take care of him' if he didn't stop the Y[employer]." 302 was upheld in the ED due to patient becoming agitated, yelling at staff, and swinging his cane around. On admission, the patient s tates that he does not know why he is here and he requests to return home. He has had the delusions for at least a year, and has been diagnosed with psychosis NOS; differential include delusional disorder, neurocognitive dementing process, delirium. He refused antipsychotic medication but was started on sertraline to target the obsessive/ruminative nature of his delusional beliefs and to improve mood/irritability. He did get 1 dose of olanzapine last evening. We have been trying unsuccessfully to obtain collateral information -he states he has no friends or family, and I have personally attempted to speak with [facility] staff, but have been unable to reach anyone who can clarify how he came to be referred to crisis/hospital. The patient is consistently denying thoughts to harm anyone, and denies that he ever threatened to get a gun and shoot anyone prior to admission. Unfortunately, he is also refusing to allow referrals for outpatient mental health treatment. Inpatient psychiatric treatment is medically necessary at this time, as it is the least restrictive and most appropriate setting for treatment given his behavior at presentation. (1) Psychosis: 03/13 - Admitted to locked behavioral health unit on q15 minute safety checks. MNPR due to homicidal statements prior to admission. - Working diagnosis of psychosis NOS, differential includes: delusional disorder, onset of neurocognitive dementing process, delirium, or residual effects from previous CVA. Will repeat CMP when agreeable as potassium could not be recorded due to hemolysis (refusing additional bloodwork at this time) - results obtained do not indicate metabolic abnormalities, overt concern for UTI, or substance use (UDS negative). - MMSE was attempted (though patient did refuse several parts of exam) - scored 10/24 for parts completed. Additional testing with a MoCA may be beneficial if patient is cooperative with testing. - These particular delusions have been ongoing for at least a year (seen on consult service in 03/2019 with identical reports), and may have been ongoing even before that time. Though the direct cause is uncertain, the duration of these delusions suggests they may not be robustly amenable to antipsychotic medications. Pt did agree to a trial of an SSRI which will ideally target the obsessive/ruminative nature of the delusions and promote improved mood. Risks, benefits, and potential side effects of sertraline were reviewed. Pt will begin with 25mg dose today, then increase to 50mg qAM with further titration as indicated/tolerated. - We will attempt to gather collateral information from his assisted living facility regarding behavior prior to admission and ideally additional information about his mental health history. - Pt will be encouraged to participate with group and recreational programming while on the unit. - Will discuss appropriate outpatient psychiatric referrals - patient currently declining psychiatry or therapy, but agreeing to case management referral. - Will request patient complete a safety plan prior to discharge. 03/14 -Patient remains delusional, paranoid, angry, and uncooperative. He is refusing almost all treatment recommendations, including antipsychotic medication, follow-up with outpatient mental health services, labwork. He is unable to explain events that led to his admission. Called [facility] to try to clarify, as per 302 a nurse there initiated the 302 by contacting crisis- spoke to [facility] office staff and they said a high risk case manager there spoke with him and initiated the crisis evaluation, but did not know what and said they didn't have access to that information. Will need to coordinate with his PCP Dr. Gonzalez p/t discharge. -Continue sertraline, increased to 50mg daily today. Although he is refusing olanzapine, I will order a low dose scheduled and prn dose to target psychosis and agitated, and encourage him to try it. -Discussed with administrator social welfare that as he has no supports, family, friends, high risk case manager etc to assist in discharge safety plan, and made threats to harm an individual per 302 petition, that we will need to attempt to notify that carrie dual of his threat, and can contact police to assist as we do not know his name or contact information, but patient states police have been involved and may know this information. Patient denies access to guns. 03/15 -Patient took olanzapine 2.5 mg last evening, and we will continue to encourage him to take his medications. He continues to refuse to allow us to refer him for outpatient treatment. -We will call his PCP tomorrow to coordinate care, and to try to clarify what occurred prior to admission that sugar the crisis call. -Patient is consistently denying thoughts to harm others, denies access to guns, and has not been aggressive or threatening here, so does not meet criteria for a 303 involuntary commitment, and will need to be discharged tomorrow before the conclusion of his 302. -Given concerns about his psychosis, reports of threats to harm others, and cognitive impairment, combined with unwillingness to engage in cognitive assessment/MOCA, I have submitted the mandated report to [facility] and recommend that the patient does not drive until he has completed a cognitive evaluation and been medically cleared to drive. He was informed of this today, and will provide him with the [employer] form "what to expect when my condition has been reported to [facility]" at discharge. (2) Diabetes: 03/13 - Pt has reportedly been maintained on metformin - denies routine blood sugar checks at home. - Pt refused repeat A1c ordered for today - most recent in 11/2019 was 7.9% - Pt agreed to switching to extended-release metformin and increasing dosing to 1000mg BID - Pt refusing AccuChecks - Follow-up with PCP to discuss any additional treatment recommendations 03/14 - Pt refusing increased dose of metformin and blood sugar checks, labs. He demonstrates lack of insight into his condition and the need for treatment. (3) Peripheral vascular disease: - Continue home doses of gabapentin, Eliquis, and follow-up as needed with outpatient providers (4) CVA (cerebral infarction): 03/13 - Continue home doses of Eliquis and aspirin - Follow-up as needed with outpatient providers (5) HTN (hypertension): 03/13 - Continue home dose of lisinopril (6) Hyperlipidemia: 03/13 - Continue home dose of rosuvastatin Risk Factors Assessment Male: Yes : Yes Do You Have Access To A Gun?: No Health Problems: Yes Mental Health Diagnoses: Yes Substance Use Disorders: No Previous Attempt: No Family History of Suicide: No Previous Psychiatric Hospitalization: No Hopelessness: No Smoker: No Protective Factors Assessment : No Responsible for Young Children: No Employed: No (Disabled) Interval History Chief Complaint "It's alright". Review of Systems Sleep Information Total Hours of Sleep: 7 Sleep Comments: pt on q-15 minute checks Meal Information Percent Meal Consumed - Breakfast: 100 Percent Meal Consumed - Lunch: 100 Percent Meal Consumed - Dinner: 100 Subjective Subjective Patient was seen & assessed and interval progress reviewed with nursing and social work. 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 He continues to refuse referrals for outpatient mental health care or case management. He did take the increased dose of metformin and olanzapine 2.5mg last night, and slept well. On my assessment today, he states mood is "okay," sleep is "not too bad," and denies problems with appetite. He is spending his time watching TV. He says he has no one he can call to give him a ride home tomorrow, and staff are exploring taxi vouchers. He continues to deny that he threatened to kill the man doing oriental orthodox against him, and denies that he talked to anyone from [facility] on the day of presentation. Reviewed available information, that apparently he spoke with the [facility] high risk case manager, and he says he has no memory of this. He further states he has no memory of threatening to get a gun and shoot this man, as detailed in the 302. He denies thoughts of harming others, but continues to report a belief that oriental orthodox is being performed against him, although will not explain this further. He denies auditory and visual hallucinations currently. He adamantly refuses recommendations to follow-up with a high risk case manager, psychiatrist, or therapist, and refuses to cooperate in a cognitive screen/MOCA, tossing the paper side and saying "I'm not doing that!" Reviewed with him that given concerns for cognitive impairment and psychiatric symptoms for which she is refusing treatment, I am mandated to report to [facility] and that he is not medically stable to drive. He does not respond to this, and denies having any questions when asked. He continues to rant angrily about being in the hospital and the police, stating "all I know is the waste removalist came to my place, that's terrible, they never do anything by the law, they always go against the law, that's what they do!" Physical Exam Psychiatric Orientation: alert; + uncooperative Apperance: appropriately dressed, appropriately groomed and appeared stated age Eye Contact: + poor eye contact Motor Behavior: steady gait and station and no abnormal motor movements Angry, ranting Initially irritable but cooperative, became increasingly angry as the interview progressed Mood: + irritable mood Thought Process: + perseveration (On his belief that he is being treated unfairly and that no one follows the) Thought Content: + preoccupation, + delusions (That a man is practicing oriental orthodox against him) and + persecution (That police treat him unfairly) Suicidal Thoughts: denies suicidal thoughts Homicidal Thoughts: denies homicidal thoughts Hallucinations: no auditory hallucinations and no visual hallucinations Cognition: attention grossly intact and language grossly intact; + recent memory not intact Insight: + poor insight Judgement: + poor judgement Vital Signs (Past 24 Hours) Last Vital Signs Temp 36.7 C 03/15/20 06:41 Pulse 100 H 03/15/20 06:41 Resp 19 03/15/20 06:41 BP 137/82 03/15/20 06:41 Pulse Ox 95 03/12/20 21:11 Results & Data ([facility]) Current Inpatient Medications Current Inpatient Medications: Current Inpatient Medications Acetaminophen (Acetaminophen 325 Mg Tab) 650 mg PO Q4H PRN PRN Reason: Headache or Minor Fever Stop: 04/11/20 19:10 Last Admin: 03/14/20 21:23 Dose: 650 mg Documented by: Al Hydrox/Mg Hydrox/Simethicone (Aluminum/Magnesium Susp 30 Ml Udc) 30 ml PO Q4H PRN PRN Reason: GI Upset Stop: 04/11/20 19:10 Apixaban (Apixaban 5 Mg Tablet) 5 mg PO BID [facility] Stop: 04/12/20 11:39 Last Admin: 03/15/20 08:13 Dose: 5 mg Documented by: Aspirin (Aspirin 81 Mg Ectab) 81 mg PO QAM [facility] Stop: 04/12/20 11:44 Last Admin: 03/15/20 08:16 Dose: 81 mg Documented by: Bismuth Subsalicylate (Bismuth Subsalicylate Liqd 236 Ml) 15 ml PO PRN PRN PRN Reason: Loose Stool Stop: 04/11/20 19:10 Dextrose (Dextrose 50% 50 Ml Syringe) 25 - 50 ml IV UD PRN; Protocol PRN Reason: Hypoglycemia Protocol Stop: 04/12/20 06:29 Docusate Sodium (Docusate Sodium 100 Mg Cap) 100 mg PO BID [facility] Stop: 04/12/20 11:39 Last Admin: 03/15/20 08:17 Dose: Not Given Documented by: Gabapentin (Gabapentin 300 Mg Cap) 300 mg PO QAM [facility] Stop: 04/12/20 11:39 Last Admin: 03/15/20 08:14 Dose: 300 mg Documented by: Glucagon (Glucagon For Inj 1 Mg Vial) 1 mg IM UD PRN; Protocol PRN Reason: Hypoglycemia Protocol Stop: 04/12/20 06:29 Glucose (Glucose 40% Gel 15 Gm Tube) 15 - 30 gm PO UD PRN; Protocol PRN Reason: Hypoglycemia Protocol Stop: 04/12/20 06:29 Glucose (Glucose 10 Tabs/Tube) 4 - 8 tabs PO UD PRN; Protocol PRN Reason: Hypoglycemia Protocol Stop: 04/12/20 06:29 Haloperidol (Haloperidol 5 Mg Tab) 5 mg PO Q4 PRN PRN Reason: Agitation Stop: 03/19/20 19:14 Last Admin: 03/12/20 21:08 Dose: 5 mg Documented by: Hydroxyzine HCl (Hydroxyzine Hcl 25 Mg Tab) 50 mg PO HSZ PRN PRN Reason: Insomnia Stop: 04/11/20 19:10 Hydroxyzine HCl (Hydroxyzine Hcl 25 Mg Tab) 25 mg PO Q4H PRN PRN Reason: Anxiety Stop: 04/11/20 19:10 [facility]inop[facility] ([facility] 10 Mg [facility]) [facility]: 04/12/20 11:39 Last Admin: 03/15/20 08:16 Dose: 10 mg Documented by: Lorazepam (Lorazepam 1 Mg Tab) 1 mg PO Q4H PRN PRN Reason: Agitation Stop: 04/11/20 21:37 Magnesium Hydroxide (Magnesium Hydroxide Susp 30 Ml Udc) 30 ml PO DAILY PRN PRN Reason: Constipation Stop: 04/11/20 19:10 Metformin HCl (Metformin Hcl Er 500 Mg Tabcr) 1,000 mg PO BIDM [facility] Stop: 04/12/20 17:44 Last Admin: 03/15/20 08:21 Dose: 500 mg Documented by: Miscellaneous (Carbohydrates For Hypoglycemia ) 15 - 30 gm PO UD PRN PRN Reason: Hypoglycemia Treatment Stop: 04/12/20 06:29 Olanzapine (Olanzapine 2.5 Mg Tab) 2.5 mg PO HS [facility] Stop: 04/13/20 21:59 Last Admin: 03/14/20 20:12 Dose: 2.5 mg Documented by: Olanzapine (Olanzapine 2.5 Mg Tab) 2.5 mg PO Q8H PRN PRN Reason: psychosis Stop: 04/13/20 10:29 Rosuvastatin Calcium (Rosuvastatin Calcium 5 Mg Tab) 5 mg PO QAM [facility] Stop: 04/12/20 11:44 Last Admin: 03/15/20 08:12 Dose: 5 mg Documented by: Sertraline HCl (Sertraline Hcl 50 Mg Tablet) 50 mg PO QAM [facility] Stop: 04/13/20 08:59 Last Admin: 03/15/20 08:14 Dose: 50 mg Documented by: Sodium Chloride (Sodium Chloride 0.65% Na Soln 45 Ml (Rapides)) 1 - 2 sprays NA PRN PRN PRN Reason: Nasal Dryness/Congestion Stop: 04/11/20 19:10 Mental Health & Subst Abuse Tx Therapist Name of Therapist: None Hotel Sales Manager Name of Hotel Sales Manager: None Post Discharge Appointments Primary Care Physician Name Of Family Doctor: Donny Gonzalez [facility] Date of Appointment with PCP: 03/19/20 Time of Appointment with PCP: 11:05 Provider Appointment Comment: [facility] Contact Information Discharge Discharge [address]: [address] [place] [id number] (1) Diabetes Diabetes mellitus type: type 2 (2) Psychosis Psychosis type: unspecified psychosis type Qualified Code(s): F29 - Unspecified psychosis not due to a substance or known physiological condition
[2020-03-15] MEDS: ACETAMINOPHEN 325 MG TAB PO PRN ×2 (10:37→20:15)
[2020-03-15] MEDS: OLANZAPINE 2.5 MG TAB PO SCH (20:17)
[2020-03-16] MEDS: GABAPENTIN 300 MG CAP PO SCH (08:38)
[2020-03-16] MEDS: APIXABAN 5 MG TABLET PO SCH (08:38)
[2020-03-16] MEDS: DOCUSATE SODIUM 100 MG CAP PO SCH (08:38)
[2020-03-16] MEDS: ROSUVASTATIN CALCIUM 5 MG TAB PO SCH (08:38)
[2020-03-16] MEDS: metFORMIN HCL ER 500 MG TABCR PO SCH (08:38)
[2020-03-16] MEDS: ASPIRIN 81 MG ECTAB PO SCH (08:38)
[2020-03-16] MEDS: SERTRALINE HCL 50 MG TABLET PO SCH (08:39)
[2020-03-16] MEDS: lisinopril 10 MG TAB PO SCH (08:39)
[2020-03-16 08:42] VITALS: BP 137/77; TEMP 97.7
--- NOTE | 2020-03-16 08:57 | Discharge Summary ---
Date of Service March 16, 2020 History of Present Illness Yasmany James (Phil) is a 69-year-old male admitted involuntarily for inpatient psychiatric treatment on 03/12/2020 after being brought to the ED on a 302 [address] warrant. 302 petitioning statement was completed by CR[facility] core worker, warrant granted and patient was brought to the ED by police. Statement reads: "This crisis program support clerk spoke to Yasmany on the phone on 03/11/2020 at 5:02pm at the [facility] of the [facility]. Yasamny was highly agitated and delusional above his typical baseline. He stated he hasn't been eating or sleeping because of an individual where he used to live is performing religious on him. He reported this individual's location as 7th floor of [facility] and stated that he was going to get a gun to "take care of him" if he didn't stop the religious." In the ED, the patient was reportedly frustrated and did not feel he needed to be in the hospital. Behavior did escalate and he began yelling and swearing at staff and waving his cane. Pt did receive lorazepam 1mg and haloperidol 5mg for agitation in the ED. Laboratory work-up did not demonstrate overt evidence of electrolyte abnormality (K+ not obtained due to hemolysis, patient refusing repeat), UTI, concern for substance use, or CT changes ([facility] study from 01/2019). Pt does have history of CVA from [address] shows "old post infarct changes within the left hemisphere". On admission to our unit patient was reportedly cooperative and has been sleeping through the night. Pt was guarded but superficially cooperative with psychiatric evaluation today. His presentation is somewhat abrasive, but his frustration is not direct toward this provider or any particular individuals. He simply reports "I hope I'm not here too long, let's just get this over with. I don't even know what happened, I don't know why I'm here." For the duration of our conversation, the patient responds to nearly all questions with "I don't know" or "I can't remember." Through repeated questioning, patient is able to clarify his understanding of a few details. He is able to acknowledge a call with a female ("Some lady called me and said something to me. I don't know who she is or where she's from") prior to admission. He was later able to recall "yeah, she did ask me if I was thinking about hurting myself or anyone else. I just kept saying 'no. no. no. no.' I didn't want to be bothered." Pt states he was caught off guard when police arrived at his home and he is still unsure as to what the concern is that brought him to the ED. Pt went on for nearly 20 minutes without being able to provide any additional pertinent details. Through more superficial conversation, patient eventually admitted that he had previously resided at [facility] where "a nicola from there has been messing with me." He states that the man - "I don't even know his name" - has been using "religious or some power" to inflict harm onto the patient. Pt was seen for this complaint during a consult with our service in 03/2019 when he believed the man was causing the PVD of his lower extremities. Pt is unable to provide any specific behaviors he believes the man is doing, but simply states "he keeps messing with me." Pt states he did recently move to a new building, but continues to be influenced by this individual. Pt states the maintenance people at [facility] are also involved in the plan and "I had to get away from that stuff." Pt admits he does not like his current residence due to a dripping shower and "poor repairs", but denies any new concerns related to harassment. Pt denies SI/HI and states "I don't want to hurt nobody, I just want to be left alone." Pt states that if these things continue, he is likely going to "move back to [place]", though he is concerned about his ability to afford the cost of living if he were to move. Pt estimates he spends between 50 - 85% of his day being concerned about the "religious" and reports it is affecting his sleep, mood, and occasionally appetite. Although initially resistant, the patient did express willingness to discuss medication options to target his mood and anxiety. Pt simultaneously denies mental health history, but then also states "I've been through all that already, I don't remember any of it." He does not, at this time, report any history consistent with depression, anxiety, symptoms suggestive of a bipolar presentation, OCD, PTSD, eating disorder, or other specific psychiatric symptoms. The patient does give the impression that he has some level of assistance at his apartment, at least with medication management (possibly as much as twice a day per his vague reports). Otherwise, he denies local supports or family with whom we can communicate. He reports having friends in [place] that he talks to on the phone somewhat regularly, but states living with them would not be an option. Pt denies specific thoughts to harm this man at [facility] at this time, and reiterates "I just want to get out of here and be left alone." Pt denied other needs at this time. Physical Exam Psychiatric Orientation: alert, oriented to person, oriented to place, oriented to time (Refuses to answer questions about the year, month, date) and cooperative Apperance: appropriately dressed, appropriately groomed and appeared stated age Eye Contact: + poor eye contact Motor Behavior: steady gait and station (Walks with a cane) and no abnormal motor movements Speech: normal rate/rhythm/volume of speech Gruff, irritable tone Stable, irritable edge, but superficially cooperative and appropriate "okay" Thought Process: goal directed thought process and + concrete thought process Thought Content: + delusions That a man at his previous residence has been doing religious on him Suicidal Thoughts: denies suicidal thoughts Homicidal Thoughts: denies homicidal thoughts Hallucinations: no auditory hallucinations and no visual hallucinations Cognition: attention grossly intact and language grossly intact; + recent memory not intact and + remote memory not intact Estimated Intelligence: + below average estimated intelligence Insight: + poor insight Judgement: + poor judgement Vital Signs (Past 24 Hours) Last Vital Signs Temp 36.5 C 03/16/20 08:00 Pulse 118 H 03/16/20 08:00 Resp 18 03/16/20 08:00 BP 137/77 03/16/20 08:00 Pulse Ox 95 03/12/20 21:11 Principal Diagnosis Psychosis NOS, rule out delusional disorder vs due to [facility] (CVA) Psychiatric Data Patient was hospitalized for 4 days. On admission, he was started on sertraline to target obsessive thoughts, rumination, and mood. He initially refused a trial of an antipsychotic medication, but due to ongoing irritability, delusions, and concerns for auditory and visual hallucinations, he was started on olanzapine 2.5 mg at bedtime, which he only took once during his hospitalization, mostly refusing it. He appeared to tolerate these medications well, and demonstrated improvement in mood with decreased irritability and decreased focus on delusions and persecutory themes. He consistently denied thoughts to harm others, and denied that he had threatened anybody prior to hospitalization, although also stated he had no memory of talking with [facility] staff or the core worker (which triggered the 302 involuntary commitment, after they reported he made statements he would get a gun and shoot the man doing religious on him). Per the 302 petition, a [facility] nurse contacted crisis after the patient made threatening statements and request that he be evaluated. He stated that he did not know the name of the religious man, but that he lived on the seventh floor at the patient's old residence, which is in a different town from his current independent living facility. He denied access to guns, and although he stated he was upset that this individual was performing religious on him, he consistently denied any thoughts or plan to harm him or anyone else. He stated that he knew religious was being performed on him because of "weird things" happening, and referenced hearing and seeing things, but was vague and evasive and unable to provide more detailed information. He did not appear to be responding to unseen others/hallucinations. He reported that these experiences had interfered with sleep, but denied that they were impacting any other areas of functioning, and was observed to be sleeping and eating well in the hospital. He denied that he has any friends, family, or other supports that could provide collateral information or assist in discharge planning. He adamantly refused to consider referrals for outpatient mental health treatment, although the recommendations to follow-up with a psychiatrist, therapist, and digital librarian were reviewed with him on multiple occasions. He attended and participated in groups and therapy on the unit, and was supportive of his peers. He was often focused on the topic of "everything that's wrong with this country," with many complaints about the government and people in positions of authority. Given his reports that he had no recollection of the events that led to admission as well as limited orientation and impaired cognition noted on the unit, attempts were made to complete cognitive screening, but he refused to participate and threw the paper on the floor. He was advised that due to cognitive impairment and psychotic symptoms, as well as unwillingness to receive the required treatment, that he was not medically cleared to drive and the mandated paperwork had been submitted to [employer]. Attempts were made to contact his [facility] outpatient office to clarify his interaction with the high school social studies tutor, but we were not able to reach anyone until the day of discharge; see below. The high school social studies tutor did contact his building maintenance mechanic (lives in independent living at [facility]), who confirmed that he could return there on discharge. Day of Discharge Assessment Staff report the patient has been attending and participating in groups and therapy, spending his free time out of his room socializing with peers and watching TV. He has been refusing to take a higher dose of Metformin, although it was recommended, and has only been taking 500 mg twice daily. He remains unhappy about being in the hospital, feeling the police were wrong to bring him here, and continues to deny that he threatened anyone. He is eating and sleeping well, and tending to ADLs independently. On my assessment, he states he feels ready to go home, denies any thoughts of harming himself or others, denies any safety concerns with leaving the hospital, and continues to express unhappiness with his hospitalization. He does not feel he has any mental health problems or that he needs any treatment, and remains unwilling to allow referrals for outpatient psychiatry, therapy, or case management. He is willing to follow-up with his PCP, and has an appointment in 3 days. Spoke with his PCP Dr. Gonzalez, reviewed Yasmany's course of treatment in the hospital, including events that led to admission. He has a high school social studies tutor through [facility], Madelaine Bob, and had contacted her the day of presentation reporting anger and threats to harm the man he believed was doing religious on him. Reviewed that he has consistently denied thoughts to harm others here, and claims to have no memory of the events that led to admission. Reviewed cognitive dysfunction and my concerns about driving, and Dr. Gonzalez stated he had already informed the patient not to drive and submitted the [employer] paperwork. Duty to warn was completed due to concerns that the patient made specific threats towards an individual at his previous apartment building, and because he is refusing ongoing mental health treatment and has demonstrated long standing delusions about this person. As he did not know the man's name, [facility] reports of the patient's threats as documented in the 302. Police were familiar with the situation. Transition of Care Transition Of Care Record: was reviewed with the patient Advance Directives Advance Directives Information Provided: Yes Advance Directives: No Mental Health Advance Directive: No Advance Directives on File: No Living Will: No Power of Assembly Line Brazer: No Advance Directives Reason:: Declines as Mental Health Visit. Risk Factors Assessment Risk mitigated by admission to the inpatient unit, use of medications to target mood and psychotic symptoms, education about his diagnoses and the risks of refusing treatment, recommending outpatient mental health services which he refused, involving him in groups and therapy, working on healthy coping skills and discharge safety plan, and coordination with his PCP. Due to cognitive impairment and psychotic symptoms, mandated report was made to [facility] and patient was advised not to drive. Although he is refusing most treatment recommendations, he does not meet 303 commitment criteria as he has consistently denied thoughts of harming himself or others here, has not been aggressive or threatening, is performing ADLs independently, sleeping and eating well, and is not at acute risk of harm to himself or others. He does have chronic elevated risk compared to the general population, but remaining risk factors are not likely to be mitigated by further inpatient treatment. Male: Yes : Yes Do You Have Access To A Gun?: No Health Problems: Yes Mental Health Diagnoses: Yes Substance Use Disorders: No Previous Attempt: No Family History of Suicide: No Previous Psychiatric Hospitalization: No Hopelessness: No Smoker: No Protective Factors Assessment : No Responsible for Young Children: No Employed: No (Disabled) Tobacco Cessation at Discharge Tobacco Cessation Medication Prescribed at Discharge: Not Applicable/Non-Smoker Total Time Total Time Spent: Greater Than 30 Minutes Total Time Includes: Examination of the patient, Discharge Planning, Medication Reconciliation and Communication with other providers Discharge Data Lab Results 03/11/20 03/11/20 03/11/20 22:41 22:41 22:41 WBC 10.65 RBC 4.69 L Hgb 15.6 Hct 44.7 MCV 95.3 MCH 33.3 MCHC 34.9 RDW Std Deviation 46.9 H RDW Coeff of Maddison 13.5 Plt Count 254 MPV 10.1 Immature Gran % (Auto) 0.4 Neut % (Auto) 60.7 Lymph % (Auto) 25.4 [place] % (Auto) 10.8 Eos % (Auto) 2.5 Baso % (Auto) 0.2 Neut # (Auto) 6.46 Lymph # (Auto) 2.71 [place] # (Auto) 1.15 H Eos # (Auto) 0.27 Baso # (Auto) 0.02 Immature Gran # (Auto) 0.04 H Sodium 136 Potassium Chloride 105 Carbon Dioxide 24 Anion Gap 8.0 BUN 21 H Creatinine 1.10 Est Cr Clr Drug Dosing 67.1 Est GFR ( Amer) 77.9 Est GFR (Non-Af Amer) 67.2 BUN/Creatinine Ratio 18.7 Glucose 171 H Calcium 9.0 Total Bilirubin 0.4 AST ALT 29 Alkaline Phosphatase 54 Total Protein 7.5 Albumin 3.6 Globulin 3.9 Albumin/Globulin Ratio 0.9 TSH 1.890 Urine Color Urine Appearance Urine pH Ur Specific [place] Urine Protein Urine Glucose (UA) Urine Ketones Urine Blood Urine Nitrite Urine Bilirubin Urine Urobilinogen Ur Leukocyte Esterase Salicylates 2.4 L Urine Opiates Screen Ur Methadone, Qual Acetaminophen < 2 L Urine Barbiturates Ur Phencyclidine (PCP) U Amphetamin/Meth Scrn MDMA (Ecstasy) Screen U Benzodiazepines Scrn Ur Cocaine Metabolite U Marijuana (THC) Screen Ethyl Alcohol mg/dL SARS-CoV-2 Ag (Rapid) 03/11/20 03/12/20 03/12/20 22:41 00:52 00:52 WBC RBC Hgb Hct MCV MCH MCHC RDW Std Deviation RDW Coeff of Maddison Plt Count MPV Immature Gran % (Auto) Neut % (Auto) Lymph % (Auto) [place] % (Auto) Eos % (Auto) Baso % (Auto) Neut # (Auto) Lymph # (Auto) [place] # (Auto) Eos # (Auto) Baso # (Auto) Immature Gran # (Auto) Sodium Potassium Chloride Carbon Dioxide Anion Gap BUN Creatinine Est Cr Clr Drug Dosing Est GFR ( Amer) Est GFR (Non-Af Amer) BUN/Creatinine Ratio Glucose Calcium Total Bilirubin AST ALT Alkaline Phosphatase Total Protein Albumin Globulin Albumin/Globulin Ratio TSH Urine Color Yellow Urine Appearance Clear Urine pH 5.0 Ur Specific [place] 1.016 Urine Protein Negative Urine Glucose (UA) Trace H Urine Ketones Negative Urine Blood Negative Urine Nitrite Negative Urine Bilirubin Negative Urine Urobilinogen Negative Ur Leukocyte Esterase Negative Salicylates Urine Opiates Screen Neg Ur Methadone, Qual Neg Acetaminophen Urine Barbiturates Neg Ur Phencyclidine (PCP) Neg U Amphetamin/Meth Scrn Neg MDMA (Ecstasy) Screen Neg U Benzodiazepines Scrn Neg Ur Cocaine Metabolite Neg U Marijuana (THC) Screen Neg Ethyl Alcohol mg/dL < 3.0 SARS-CoV-2 Ag (Rapid) 03/12/20 Unknown WBC RBC Hgb Hct MCV MCH MCHC RDW Std Deviation RDW Coeff of Maddison Plt Count MPV Immature Gran % (Auto) Neut % (Auto) Lymph % (Auto) [place] % (Auto) Eos % (Auto) Baso % (Auto) Neut # (Auto) Lymph # (Auto) [place] # (Auto) Eos # (Auto) Baso # (Auto) Immature Gran # (Auto) Sodium Potassium Chloride Carbon Dioxide Anion Gap BUN Creatinine Est Cr Clr Drug Dosing Est GFR ( Amer) Est GFR (Non-Af Amer) BUN/Creatinine Ratio Glucose Calcium Total Bilirubin AST ALT Alkaline Phosphatase Total Protein Albumin Globulin Albumin/Globulin Ratio TSH Urine Color Urine Appearance Urine pH Ur Specific [place] Urine Protein Urine Glucose (UA) Urine Ketones Urine Blood Urine Nitrite Urine Bilirubin Urine Urobilinogen Ur Leukocyte Esterase Salicylates Urine Opiates Screen Ur Methadone, Qual Acetaminophen Urine Barbiturates Ur Phencyclidine (PCP) U Amphetamin/Meth Scrn MDMA (Ecstasy) Screen U Benzodiazepines Scrn Ur Cocaine Metabolite U Marijuana (THC) Screen Ethyl Alcohol mg/dL SARS-CoV-2 Ag (Rapid) Negative Hospital Course (1) Psychosis: 03/13 - Admitted to locked behavioral health unit on q15 minute safety checks. MNPR due to homicidal statements prior to admission. - Working diagnosis of psychosis NOS, differential includes: delusional disorder, onset of neurocognitive dementing process, delirium, or residual effects from previous CVA. Will repeat CMP when agreeable as potassium could not be recorded due to hemolysis (refusing additional bloodwork at this time) - results obtained do not indicate metabolic abnormalities, overt concern for UTI, or substance use (UDS negative). - MMSE was attempted (though patient did refuse several parts of exam) - scored 10/24 for parts completed. Additional testing with a MoCA may be beneficial if patient is cooperative with testing. - These particular delusions have been ongoing for at least a year (seen on consult service in 03/2019 with identical reports), and may have been ongoing even before that time. Though the direct cause is uncertain, the duration of these delusions suggests they may not be robustly amenable to antipsychotic medications. Pt did agree to a trial of an SSRI which will ideally target the obsessive/ruminative nature of the delusions and promote improved mood. Risks, benefits, and potential side effects of sertraline were reviewed. Pt will begin with 25mg dose today, then increase to 50mg qAM with further titration as indicated/tolerated. - We will attempt to gather collateral information from his assisted living facility regarding behavior prior to admission and ideally additional information about his mental health history. - Pt will be encouraged to participate with group and recreational programming while on the unit. - Will discuss appropriate outpatient psychiatric referrals - patient currently declining psychiatry or therapy, but agreeing to case management referral. - Will request patient complete a safety plan prior to discharge. 03/14 -Patient remains delusional, paranoid, angry, and uncooperative. He is refusing almost all treatment recommendations, including antipsychotic medication, follow-up with outpatient mental health services, labwork. He is unable to explain events that led to his admission. Called [facility] to try to clarify, as per 302 a nurse there initiated the 302 by contacting crisis- spoke to [facility] office staff and they said a pillowcase sewer there spoke with him and initiated the crisis evaluation, but did not know what and said they didn't have access to that information. Will need to coordinate with his PCP Dr. Gonzalez p/t discharge. -Continue sertraline, increased to 50mg daily today. Although he is refusing olanzapine, I will order a low dose scheduled and prn dose to target psychosis and agitated, and encourage him to try it. -Discussed with high school social studies tutor that as he has no supports, family, friends, pillowcase sewer etc to assist in discharge safety plan, and made threats to harm an individual per 302 petition, that we will need to attempt to notify that individual of his threat, and can contact police to assist as we do not know his name or contact information, but patient states police have been involved and may know this information. Patient denies access to guns. 03/15 -Patient took olanzapine 2.5 mg last evening, and we will continue to encourage him to take his medications. He continues to refuse to allow us to refer him for outpatient treatment. -We will call his PCP tomorrow to coordinate care, and to try to clarify what occurred prior to admission that sugar the crisis call. -Patient is consistently denying thoughts to harm others, denies access to guns, and has not been aggressive or threatening here, so does not meet criteria for a 303 involuntary commitment, and will need to be discharged tomorrow before the conclusion of his 302. -Given concerns about his psychosis, reports of threats to harm others, and cognitive impairment, combined with unwillingness to engage in cognitive assessment/MOCA, I have submitted the mandated report to [facility] and recommend that the patient does not drive until he has completed a cognitive evaluation and been medically cleared to drive. He was informed of this today, and [facility] to [facility] when my condition has been reported to [facility]" at discharge. 03/16 -Care coordinated with PCP Dr. Gonzalez, follow up with him 03/19. Clarified that he has been working with a [facility] high school social studies tutor, Madelaine Bob, and our contact info provided for her to contact [facility] high school social studies tutor for coordination of care. -Prescriptions issued for sertraline 50mg daily and olanzapine 2.5mg HS, #30 day supply of each. -Patient refused recommendations for referral for outpatient mental health treatment, including psychiatry, therapy and case management. -Neuropsychological testing would be helpful to assess cognitive impairment. -NO DRIVING due to cognitive impairment and psychotic symptoms. [facility]. (2) Diabetes: 03/13 - Pt has reportedly been maintained on metformin - denies routine blood sugar checks at home. - Pt refused repeat A1c ordered for today - most recent in 11/2019 was 7.9% - Pt agreed to switching to extended-release metformin and increasing dosing to 1000mg BID - Pt refusing AccuChecks - Follow-up with PCP to discuss any additional treatment recommendations 03/14 - Pt refusing increased dose of metformin and blood sugar checks, labs. He demonstrates lack of insight into his condition and the need for treatment. (3) Peripheral vascular disease: - Continue home doses of gabapentin, Eliquis, and follow-up as needed with outpatient providers (4) CVA (cerebral infarction): 03/13 - Continue home doses of Eliquis and aspirin - Follow-up as needed with outpatient providers (5) HTN (hypertension): 03/13 - Continue home dose of lisinopril (6) Hyperlipidemia: 03/13 - Continue home dose of rosuvastatin Mental Health & Subst Abuse Tx Therapist Name of Therapist: None Shaft Repairer Name of Shaft Repairer: None Post Discharge Appointments Primary Care Physician Name Of Family Doctor: Donny Gonzalez Primary [facility] Date of Appointment with PCP: 03/19/20 Time of Appointment with PCP: 11:05 Provider Appointment Comment: [facility] Smoking Cessation Counseling Tobacco Cessation Medication Prescribed at Discharge: Not Applicable/Non-Smoker Contact Information Discharge Discharge Address: [address] [place] [id number] Discharge Plan Discharge Items Patient Disposition: Home - Self-Care Reason For Visit: PSYCHOSIS, NOS Discharge Diagnosis: SPECIAL CARE INSTRUCTIONS: 1. Follow through with your scheduled aftercare appointments. If unable to keep an appointment, please call to reschedule. 2. Take your medication only as prescribed. Medication should not be changed or stopped without the approval of your doctor. In the event of worsening symptoms or concerns about side effects, contact your doctor immediately. 3. Utilize new healthy coping skills, anger management skills, and stress management skills learned during your hospitalization. Journal feelings and process them with a support person. Identify stressors or situations that may result in relapse, deterioration or inappropriate behaviors and develop a plan to deal with those issues. 4. If your coping skills are ineffective and you are in crisis, contact your outpatient providers for direction. If unable to reach your providers, please call the [facility] CRISIS LINE AT , go to the [facility] walk-in center at [address], [address], [place], or go to the closest Emergency Room. 5. Avoid alcohol and un-prescribed drugs. 6. You have been provided with the Mental Health Advance Directives Pamphlet for your review. AFTERCARE APPOINTMENTS: * Please call your insurance company prior to your scheduled appointment to confirm your aftercare providers are covered. Take your insurance information to your ap pointments. WHO TO CALL AND WHEN: Medical Emergencies: For questions or emergencies related to your hospital stay, please contact the Inpatient Behavioral Health Unit at [phone]. A caponizer is on-call 26/09 for the Behavioral Health Unit for emergencies At any time you feel your situation is an emergency, you may also call 911 immediately. Activity: Per Instructions section Driving/Machine Use: No driving, until medically cleared by your physician. Non-emergency contact: Primary Care Provider Call non-emergency contact if: you have any medication questions and your symptoms worsen Follow-up/Referrals: PCP,NO [Primary Care Provider] - Diet: Regular Addtl Attending Provider Instructions: SPECIAL CARE INSTRUCTIONS: 1. Follow through with your scheduled aftercare appointments. If unable to keep an appointment, please call to reschedule. We recommended you follow up with mental health services, including a psychiatrist, therapist, and pillowcase sewer, but you refused all of these services. You are not medically stable to drive. This was reported to [employer]. See attached form. 2. Take your medication only as prescribed. Medication should not be changed or stopped without the approval of your doctor. In the event of worsening symptoms or concerns about side effects, contact your doctor immediately. You were started on olanzapine and sertraline. Prescriptions were sent to your pharmacy. 3. Utilize new healthy coping skills, anger management skills, and stress management skills learned during your hospitalization. Journal feelings and process them with a support person. Identify stressors or situations that may result in relapse, deterioration or inappropriate behaviors and develop a plan to deal with those issues. 4. If your coping skills are ineffective and you are in crisis, contact your outpatient providers for direction. If unable to reach your providers, please call the [facility] CRISIS LINE AT , go to the [facility] walk-in center at [address], [address], [place], or go to the closest Emergency Room. 5. Avoid alcohol and un-prescribed drugs. 6. You have been provided with the Mental Health Advance Directives Pamphlet for your review. AFTERCARE APPOINTMENTS: * Please call your insurance company prior to your scheduled appointment to confirm your aftercare providers are covered. Take your insurance information to your appointments. WHO TO CALL AND WHEN: Medical Emergencies: For questions or emergencies related to your hospital stay, please contact the Inpatient Behavioral Health Unit at [phone]. A caponizer is on-call 26/09 for the Behavioral Health Unit for emergencies At any time you feel your situation is an emergency, you may also call 911 immediately. Pending Studies at Discharge: No Stand-Alone Forms: My [facility] [address], Smoking Cessation Medications and DC Order Prescriptions: New olanzapine 2.5 mg Tablet 2.5 mg PO HS Qty: 30 RF: 0 sertraline 50 mg Tablet 50 mg PO QAM Qty: 30 RF: 0 Continued lisinopril 10 mg Tablet 10 mg PO QAM RF: 0 gabapentin 300 mg Capsule 300 mg PO QAM RF: 0 rosuvastatin 10 mg Tablet 5 mg PO QAM RF: 0 PreserVision Lutein 226 mg-200 unit -5 mg-0.8 mg Capsule 1 cap PO QAM RF: 0 docusate sodium 100 mg Capsule 100 mg PO BID Qty: 60 RF: 0 metformin 500 mg tablet 500 mg PO BID RF: 0 Eliquis 5 mg tablet 5 mg PO BID RF: 0 aspirin 81 mg tablet,delayed release (DR/EC) 81 mg PO QAM RF: 0 Discharge Orders: Discharge Order (Routine); Ordered 03/16/20 Ordered By: Lakisha Khan Admission Data Admit Date/Time: 03/12/20 19:11 Attending Provider: Diane Richardson Admit Provider: Diane Richardson Primary Care Provider: PCP,NO Other Interventions: Discharge Summary Assessment (RN) Last Done: 03/16/20 10:42 PSY Interdisciplinary Discharge Planning Last Done: 03/16/20 10:40 Coding Level of Care Code 99826 D/C day mgmt > 30 min Diagnoses Psychosis F29 Psychosis type: unspecified psychosis type Diabetes E11.9 Diabetes mellitus type: type 2 Peripheral vascular disease I73.9 CVA (cerebral infarction) I63.9 HTN (hypertension) I10 Hyperlipidemia E78.5
[2020-03-16 10:44] VITALS: PULSE 88
== END 2020-03-16 10:50 | disposition home or self-care (01) | DRG 885 ==
LOC: ED 20:09 → 3S 03-12 19:11